=== PATIENT | male | born 1975 | race Caucasian/White ===

== ENCOUNTER 2023-06-13 14:15 | Day surgery (SDC) | payer MEDICARE, SELFPAY ==
[2023-06-13] VITALS (36 sets, daily range): BP systolic 113–188; BP diastolic 68–116; PULSE 62–85; TEMP 36.1–36.6; O2SAT 82–100; BMI 35.8
--- NOTE | 2023-06-13 | OP_ITS ---
OPERATION DATE: 06/13/2023 PREOPERATIVE DIAGNOSIS: Food impaction. POSTOPERATIVE DIAGNOSIS: Food impaction, as well as esophageal stricture. PROCEDURE: EGD with removal of mid esophageal food bolus. SURGEON: Kevin Dennison M.D. ANESTHESIA: General endotracheal. ESTIMATED BLOOD LOSS: Zero. INDICATIONS AND CONSENT: Patient is a 48-year-old male with history of asthma, has a long history of gastroesophageal reflux disease, as well as multiple food impactions in the past, who reports that he was eating steak this afternoon and it became lodged in his mid esophagus. He has been unable to eat or drink since that time. He does have a history of multiple episodes of this in the past. The last he reports was about five years ago. Patient had a workup in the emergency room, was unable to have any relief with glucagon or Ativan. Now presents for EGD. Indications, risks, benefits, alternatives of proceeding with EGD with general anesthesia, removal and/or reduction of the food bolus were explained extensively to the patient, including the risks of bleeding, aspiration, esophageal/gastric/duodenal perforation or anesthetic complications. All of his questions were answered. Informed consent was obtained. PROCEDURE: Patient brought to the operating room, placed in the supine position. General anesthesia was induced. He was then placed in the left lateral decubitus position. Bite block was placed in the patient?s mouth. Scope was inserted into the oropharynx. Under direct visualization, it was advanced into the mid esophagus, where the steak food bolus was noted. It was able to be grasped with a grasper and pulled out through the oropharynx in one piece. I then replaced the scope. There was noted be a stricture at this area that did not allow passage of the scope. However, the distal esophagus could be seen past this and was patent. There did appear to be inflammatory changes of the esophagus. No mass lesions. There was no evidence of bleeding. The scope was then withdrawn. Patient tolerated procedure well, was sent to recovery room in good condition. CC: Patient?s family physician ROGELIO
--- NOTE | 2023-06-13 | HP_ITS ---
Date: 06/13/2023 CHIEF COMPLAINT: Food impaction. HISTORY OF PRESENT ILLNESS: Patient is a 48-year-old male with history of asthma, who reports that he was eating steak this afternoon and had a piece lodged in his lower esophagus. He feels that it is stuck. He has been unable to swallow saliva or food or drink since that time. He has had this happen multiple times in the past, four or five times. The last was about five years ago. He presented to the emergency room, was given glucagon and Ativan with no relief of his symptoms. He does report some mild epigastric pain. No nausea or vomiting. He reports he did not eat much prior to the food being impacted. ALLERGIES: He reports allergies to aspirin. MEDICATION: Only medication is a Proventil inhaler which he takes p.r.n. Denies any nonsteroidal anti-inflammatory drug use or other blood thinners. SOCIAL HISTORY: Patient does smoke. Denies illicit drug use. Reports occasional alcohol use. PAST SURGICAL HISTORY: Only previous surgical operations have been previous EGDs for food boluses. FAMILY HISTORY: Noncontributory. REVIEW OF SYSTEMS: Ten system review of systems is negative for recent weight loss or weight gain. Denies increased fatigue or light-headedness. He has had no earache or tinnitus. No sinus congestion. No sore throat or hoarseness. No chest pain, palpitations or syncope. No chronic cough, shortness of breath or hemoptysis. He has had some mild epigastric pain. No nausea or vomiting. No bowel changes or blood in the stool. No dysuria, frequency, urgency or hematuria. No headaches, seizures or tremors. No easy bruising or bleeding. No heat or cold intolerance. No polydipsia, polyphagia or polyuria. PHYSICAL EXAM: VITAL SIGNS: Patient is afebrile. Blood pressure is 142/84. Pulse is 81 and regular. Respiratory rate is 18. O2 saturation is 97% on room air. GENERAL: In general, he is an obese male, in no acute distress. HEENT: Normocephalic, atraumatic. Sclerae anicteric. Oral mucosa is moist. He has multiple teeth missing. NECK: Supple. There is no adenopathy, thyromegaly or JVD. LUNGS: Clear bilaterally. No wheezes, rales or rhonchi. CARDIAC EXAM: Regular rhythm and rate without appreciable murmurs, rubs or gallops. ABDOMEN: Obese and soft, non-tender, non-distended. There are no masses, hepatosplenomegaly or hernias. No CVA tenderness. SKIN: Warm and dry without lesions, rashes or ulcers. NEURO EXAM: Non-focal. Non-lateralizing. Patient is awake, alert, oriented with appropriate affect. MUSCULOSKELETAL EXAM: There is normal muscle strength, mass and tone. ASSESSMENT: A 48-year-old male with food impaction. PLAN: To proceed with EGD under general anesthesia for possible reduction or removal of the food bolus. Indication, risks, benefits, alternatives of proceeding were explained extensively to the patient, including risks of bleeding, aspiration, esophageal/gastric/duodenal perforation or anesthetic complications. All of his questions were answered. Informed consent was obtained. CC: Patient?s family physician. GEOD
--- NOTE | 2023-06-13 14:23 | ED_ITS ---
HPI HPI - General Adult General Chief complaint: Skin/Abscess/Foreign Body Stated complaint: FOOD STUCK IN THROAT Time Seen by Provider: 06/13/23 14:20 Source: patient Mode of arrival: ambulance Limitations: no limitations History of Present Illness HPI narrative: 48-year-old male presents for inability to swallow. He has a history of esophageal food boluses in the last time he had to go to the hospital about it was about 5 years ago. Today, about an hour and a half ago, he was eating steak and a piece got stuck and it will not go down. He cannot swallow liquids now. Symptom has been continuous. Related Data Allergies Allergy/AdvReac Type Severity Reaction Status Date / Time aspirin Allergy Mild Verified 06/13/23 14:16 Opioid HPI Opioid Management Most Recent Opioid Data: Last ED Pain Assessment 06/13/23 15:39 Review of Systems ROS Narrative A ten point review of systems is negative except as noted above. Exam Narrative Exam Narrative: Nurses note and vital signs reviewed and patient is not hypoxic. General: The patient appears uncomfortable. He is spitting into an emesis basin Skin: Warm, dry, no pallor noted. There is no rash noted. Head: Normocephalic, atraumatic Eye: Normal conjunctiva, no drainage Ears, Nose, Mouth, and Throat: oral mucosa is moist. Nares patent. Cardiovascular: Regular Rate and Rhythm Respiratory: Patient is in no distress, no accessory muscle use, lungs are clear to auscultation, no wheezing, rales or rhonchi Back: non-tender GI: Soft and nontender Musculoskeletal: The patient has no evidence of calf tenderness, no pitting edema, symmetrical pulses noted bilaterally Neurological: A&O, normal speech Psychiatric: Cooperative Constitutional Vital Signs, click to edit/add: Last Vital Signs Temp 97.8 F 06/13/23 14:16 Pulse 81 06/13/23 15:57 Resp 16 06/13/23 15:57 BP 142/84 H 06/13/23 15:50 Pulse Ox 97 06/13/23 15:57 O2 Del Method Room Air 06/13/23 14:40 Course Vital Signs Vital signs: Vital Signs Temperature 97.8 F 06/13/23 14:16 Pulse Rate 85 06/13/23 14:16 Respiratory Rate 18 06/13/23 14:16 Blood Pressure 188/116 H 06/13/23 14:16 Pulse Oximetry 98 06/13/23 14:16 Temperature 97.8 F 06/13/23 14:16 Pulse Rate 81 06/13/23 15:57 Respiratory Rate 16 06/13/23 15:57 Blood Pressure 142/84 H 06/13/23 15:50 Pulse Oximetry 97 06/13/23 15:57 Oxygen Delivery Method Room Air 06/13/23 14:40 Medical Decision Making MDM Narrative Medical decision making narrative: The patient presents with esophageal food bolus. He was given multiple doses of medication without change in his status. I have spoken to Dr. Dennison and the patient will be taken to the OR for endoscopy. Findings were discussed with the patient Differential Diagnosis Differential Diagnosis: Esophageal stricture, food bolus Discharge Plan Discharge Chief Complaint: Skin/Abscess/Foreign Body Clinical Impression: Esophageal foreign body Patient Disposition: Admitted as Observation Time of Disposition Decision: 16:25 Condition: Good Print Language: Mozambican Referrals: Physician,Non-Staff, MD [Primary Care Provider] - 1 week
[2023-06-13] MEDS: METOCLOPRAMIDE HCL 10 MG/2 ML VIAL IVP ×2 (14:41→15:31)
[2023-06-13] MEDS: GLUCAGON 1 MG/ML VIAL IV ×2 (14:41→15:34)
[2023-06-13] MEDS: LORAZEPAM 2 MG/ML VIAL 1 MG IV (14:41)
[2023-06-13] MEDS: NITROGLYCERIN 0.4 MG BOTTLE 0.400000000000000022 MG SL ×2 (15:04→15:31)
[2023-06-13] MEDS: LACTATED RINGER'S SOLUTION 1,000 ML 50 ML IV (17:15)
--- NOTE | 2023-06-13 18:23 | PC.NURSE ---
Incontinent of large amount liquid stool
== END 2023-06-13 18:55 | disposition home or self-care (01) ==
LOC: ER 16:26 → SURGOUT 17:21
PROVIDERS: Emergency Provider Internal Medicine; Visit Provider Surgery
PROC: (CPT 43247; principal; 2023-06-13 17:10)
DX: T18.128A Food in esophagus causing other injury, initial encounter (principal); W44.F3XA Food entering into or through a natural orifice, initial encounter; J45.909 Unspecified asthma, uncomplicated; R10.13 Epigastric pain; F17.210 Nicotine dependence, cigarettes, uncomplicated; E66.9 Obesity, unspecified; K21.9 Gastro-esophageal reflux disease without esophagitis; Z68.35 Body mass index [BMI] 35.0-35.9, adult
CPT/HCPCS: 43247; 96374; 96375; 96376; 99285; J1610; J2704

== ENCOUNTER 2023-12-15 20:42 | Emergency (ER) | payer MEDICAID, MEDICARE, SELFPAY ==
[2023-12-15 20:46] VITALS: BP 170/98; PULSE 89; TEMP 36.9; O2SAT 98; BMI 32.5
--- OUTSIDE RECORDS SUMMARY | 2023-12-15 20:48 | XMS_ITS | CCD ---
Author Organization [facility] Care Team Providers Care Teacher Of The Hearing Impaired Name Role Phone REQUEST, DR NONE LISTED Primary Care Unavaila ble REINECK, DR SONIDO Rodriguez Admitting Unavailabl e REINECK, DR SONIDO Rodriguez Attending Unavailabl e REINECK, DR SONIDO Rodriguez Consulting Unavailabl e ZIEBER, DR LALITHA Richards Consulting Unavailable REQUEST, NONE LISTED Primary Care Unavaila ble PAY ., DR MITCHELL Admitting Unavailable PAY ., DR MITCHELL Attending Unavailable GRECHNY ., JUNAID JONES Consulting Unavailabl e AHDOOT, REGINA Consulting Unavailable NILLKevin Attending Unavailable [place], [facility]- Janiya E Emergency Provider NO FAMILY, PHYSICIAN Primary Care Provider Unava ilable NO FAMILY, PHYSICIAN Primary Care Unavailable Bull[place], Janiya E Admitting Unavailable [place], Janiya E Attending Unavailable Family [facility], Services Primary Care Unavaila ble Trav Yanez Admitting Unavailab le Trav Yanez Attending Unavailab le Allergies Allergy Classification Reported Allergen(s) Allergy Type Date of Onset Reaction(s) Facility (1 source) Aspirin Drug Allergy 03-24-2019 [facility] Repository (1 source) Aspirin Drug Allergy 07-11-2023 [facility] Repository Medications Current Medications Medication Drug Class(es) Dates Sig (Normalized) Sig (Original) ketorolac tromethamine 10 mg oral tablet (1 source) Nonsteroidal Anti-inflammatory Drug, Cyclooxygenase Inhibitor Start: 07-11-2023 take 10 mg by mouth every six hours Ketorolac Active 10 MG PO Q6H July 11, 2023 12:00am Completed/Discontinued Medications Medication Drug Class(es) Dates Sig (Normalized) Sig (Original) acetaminophen 325 mg / HYDROcodone bitartrate 5 mg oral tablet (2 sources) Opioid Agonist Start: 07-25-2017 End: 07-11-2023 take 1 tablet by mouth every four to six hours Hydrocodone-Acetami nophen ([place]) 5-325 mg Tablet Discontinued 1 TAB PO EVERY 4-6 HOURS July 25, 2017 July 11, 2023 12:43pm Start: 05-08-2017 End: 05-29-2017 take 1 tablet by mouth every four to six hours Hydrocodone-Acetaminophen ([place]) 5-325 mg tablet Discontinued 1 TAB PO EVERY 4-6 HOURS May 08, 2017 May 29, 2017 9:13am acetaminophen 325 mg / oxyCODONE hydrochloride 5 mg oral tablet (1 source) Opioid Agonist Start: 02-20-2017 End: 02-23-2017 take 1 tablet by mouth every four to six hours Oxycodone-Acetaminophen (Percocet) 5-325 mg tablet Discontinued 1 TAB PO EVERY 4-6 HOURS 18 February 20, 2017 February 23, 2017 1:04am albuterol 0.83 mg/ml inhalation solution (2 sources) beta2-Adrene rgic Agonist Start: 05-29-2017 End: 07-11-2023 take 2.5 mg by inhalation every four hours Albuterol Sulfate Discontinued 2.5 MG INHALATION Q4H May 29, 2017 12:00am July 11, 2023 12:43pm Start: 12-29-2016 End: 05-29-2017 Albuterol Sulfate Discontinu ed 2 INH INHALATION every 6 to 8 hours 8 December 29, 2016 1:00am May 29, 2017 9:13am administer with spacer azithromycin 250 mg oral tablet (1 source) Macrolide Antimicrobial Start: 05-29-2017 End: 07-25-2017 take 1 tablet by mouth once daily Azithromycin Discontinued 250 MG PO Daily May 29, 2017 12:00am July 25, 2017 6:17am Take one tab daily for 4 days ciprofloxacin 500 mg oral tablet (1 source) Quinolone Antimicrobial Start: 02-20-2017 End: 03-02-2017 take 1 tablet by mouth every two hours Ciprofloxacin Hcl (Cipro) 500 mg tablet Discontinued 500 MG PO Twice daily 27 11February 20, 2017 1:00am March 02, 2017 1:04am administer dose at least 2 hrs before/6 hrs after dairy products, calcium, zinc, and/or iron-containing products cyclobenzaprine hydrochloride 10 mg oral tablet (1 source) Muscle Relaxant Start: 05-08-2017 End: 07-25-2017 take 10 mg by mouth three times daily as needed Cyclobenzaprine Discontinued 10 MG PO .tid prn 10 May 08, 2017 12:00am July 25, 2017 6:17am docusate sodium 100 mg oral capsule (1 source) Start: 02-20-2017 End: 05-08-2017 take 1 capsule by mouth once daily Docusate Sodium (Colace) 100 mg capsule Discontinued 100 MG PO Daily February 20, 2017 1:00am May 08, 2017 1:53pm ibuprofen 800 mg oral tablet (1 source) Nonsteroidal Anti-inflammatory Drug Start: 05-08-2017 End: 05-29-2017 take 800 mg by mouth every six hours Ibuprofen Discontinued 800 MG PO Q6H May 08, 2017 12:00am May 29, 2017 9:13am metroNIDAZOLE 500 mg oral tablet (1 source) Nitroimidazole Antimicrobial Start: 02-20-2017 End: 03-02-2017 take 1 tablet by mouth every eight hours Metronidazole (Flagyl) 500 mg tablet Discontinued 500 MG PO Q8H 30 February 20, 2017 1:00am March 02, 2017 1:04am ondansetron 4 mg oral tablet (1 source) Serotonin-3 Receptor Antagonist Start: 02-20-2017 End: 02-25-2017 take 1 tablet by mouth every eight hours Ondansetron Hcl (Zofran) 4 mg tablet Discontinued 4 MG PO Q8H 22 06February 20, 2017 1:00am February 25, 2017 1:04am predniSONE 20 mg oral tablet (3 sources) Start: 05-29-2017 End: 07-25-2017 take 40 mg by mouth once daily at mealtime Prednisone Discontinued 40 MG PO Daily May 29, 2017 12:00am July 25, 2017 6:17am administer with food or milk Start: 05-08-2017 End: 05-29-2017 take 50 mg by mouth once daily at mealtime Prednisone Discontinued 50 MG PO Daily 5 May 08, 2017 12:00am May 29, 2017 9:13am administer with food or milk Start: 12-29-2016 End: 02-20-2017 take 60 mg by mouth once daily at mealtime Prednisone Discontinued 60 MG PO Daily December 29, 2016 1:00am February 20, 2017 1:18pm administer with food or milk raNITIdine 75 mg oral tablet (1 source) Histamine-2 Receptor Antagonist Start: 02-20-2017 End: 07-11-2023 take 1 tablet by mouth twice daily Ranitidine Hcl (Zantac 75) 75 mg Tablet Discontinued 75 MG PO Twice daily February 20, 2017 1:00am July 11, 2023 12:43pm Problems Active Problems Problem Classification Problem Date Documented Date Episodic/Chronic Chronic obstructive pulmonary disease and bronchiectasis (1 source) Bronchitis; Translations: [Bronchitis, not specified as acute or chronic] 05-29-2017 Episodic Diverticulosis and diverticulitis (2 sources) Diverticulitis of large intestine without perforation or abscess without bleeding; Translations: [Diverticulitis of intestine] Onset: 11-21-2021 02-20-2017 Chronic E Codes: Struck by; against (1 source) Other cause of strike by thrown, projected or falling object, initial encounter; Translations: [OTH CAUSE STRIK THRWN/FALL OBJ INIT] Onset: 04-28-2022 Episodic Other connective tissue disease (3 sources) Pain in left foot; Translations: [PAIN IN LEFT FOOT] Onset: 04-27-2022 Episodic Other injuries and conditions due to external causes (1 source) Unspecified injury of right lower leg, initial encounter; Translations: [Unspecified injury of right lower leg, initial encounter] Onset: 07-11-2023 Episodic Residual codes; unclassified (1 source) Tobacco use and exposure - finding; Translations: [Tobacco use] 05-29-2017 Episodic Spondylosis; intervertebral disc disorders; other back problems (1 source) Sciatica; Translations: [Sciatica, unspecified side] 05-08-2017 Episodic Substance-related disorders (1 source) Nicotine dependence, cigarettes, uncomplicated; Translations: [NICOTINE DEPEND CIGARETTES UNCOMP] Onset: 11-21-2021 Chronic Superficial injury; contusion (2 sources) Contusion of left foot, initial encounter; Translations: [Contusion of right knee] Onset: 04-28-2022 07-11-2023 Episodic Unclassified (1 source) CONTACT W/AND (SUSP) EXPOS COVID-19; Translations: [CONTACT W/AND (SUSP) EXPOS COVID-19] Onset: 11-21-2021 Past or Other Problems Problem Classification Problem Date Documented Da te Episodic/Chronic Abdominal pain (4 sources) Left lower quadrant pain; Translations: [Unspecified abdominal pain] Onset: 11-19-2021 Episodic Results Test Name Value Interpretation Reference Range Facil ity XR knee RT 4V*on 07-11-2023 XR knee RT 4V* [facility] [place] [address] [place] [id number] XRay Report Signed Patient: Lester Brown SR MR#: [id number] : 1975 Acct:[id number] Age/Sex: 48 / M ADM Date: 07/11/23 Loc: ER Room: Type: [facility] ER Attending Dr: Copies to: HUEY Watkins Ordering Provider: HUEY Watkins Date of Service: 07/11/23 XR/XR knee RT 4V*: Fall XR knee RT 4V* 07/11/2023 12:19 PM SIGNS AND SYMPTOMS: Fall onto right knee with abrasion and swelling anteriorly PROTOCOL: Frontal, lateral, and oblique radiographs of the right knee COMPARISON: 07/25/2017 FINDINGS: Heterotopic ossification is noted along the medial margin of the patella suspicious for previous patellar dislocation. These changes appear to be chronic in a relatively well-corticated and was present on the prior study. There is no evidence of acute displaced fracture. There is a moderate joint effusion. Fixation hardware is redemonstrated in the proximal tibia. XR/XR knee RT 4V* IMPRESSION: Chronic changes are noted in the patella suggesting previous patellar dislocation/fracture. This is similar to the prior exam. No evidence of acute displaced fracture. There is a moderate joint effusion. Impression dictated by: Michael Victoria M.D.07/11/2023 12:56 PM Dictation Location: [place] [address] Transcribed By: [facility] 07/11/23 1256 Dictated By: Michael Victoria II, MD 07/11/23 1248 Signed By: 07/11/23 1256 Normal [facility] Operative Reporton Operative Report [id number]. [id number] Normal [facility] CBC AUTO DIFFon 11-19-2021 BASO # 0.1 103/ul Normal 0.0-0.1 [facility] Comment on above: Performed By: #### C BC #### [facility] [address] [place] [address] Dr. Jackelin Cook Basophils/100 WBC (Bld) 0.5 % Normal 0.2-2.0 [facility] Comment on above: Performed By: #### C BC #### [facility] [address] [place] [address] Dr. Jackelin Cook EO # 0.2 103/ul Normal 0.0-0.7 [facility] Comment on above: Performed By: #### C BC #### [facility] [address] [place] [address] Dr. Jackelin Cook Eosinophils/100 WBC (Bld) 1.4 % Normal 0.9-7.0 [facility] Comment on above: Performed By: #### C BC #### [facility] [address] [place] [address] Dr. Jackelin Cook Erythrocyte distribution width (RBC) [Ratio] 13.4 % Normal 11.0-15.0 [facility] Comment on above: Performed By: #### C BC #### [facility] [address] [place] [address] Dr. Jackelin Cook Hematocrit (Bld) [Volume fraction] 46.8 % Normal 42.0-54.0 [facility] Comment on above: Performed By: #### C BC #### [facility] [address] [place] [address] Dr. Jackelin Cook Hemoglobin (Bld) [Mass/Vol] 15.3 g/dL Normal 14.0-18.0 [facility] Comment on above: Performed By: #### C BC #### [facility] [address] [place] [address] Dr. Jackelin Cook IG # 0.06 10e3/ul Critically high 0.00-0.03 [facility] Comment on above: Performed By: #### C BC #### [facility] [address] [place] [address] Dr. Jackelin Cook IG % 0.4 % Normal 0.0-0.5 [facility] Comment on above: Performed By: #### C BC #### [facility] [address] [place] [address] Dr. Jackelin Cook LYMPH # 2.5 103/ul Normal 1.2-3.8 [facility] Comment on above: Performed By: #### C BC #### [facility] [address] [place] [address] Dr. Jackelin Cook Lymphocytes/100 WBC (Bld) 15.8 % Critically low 20.5-60.0 [facility] Comment on above: Performed By: #### C BC #### [facility] [address] [place] [address] Dr. Jackelin Cook MANUAL DIFF REQ NO Normal [facility] Comment on above: Performed By: #### C BC #### [facility] [address] [place] [address] Dr. Jackelin Cook MCH (RBC) [Entitic mass] 30.2 pg Normal 25.9-34.0 [facility] Comment on above: Performed By: #### C BC #### [facility] [address] [place] [address] Dr. Jackelin Cook MCHC (RBC) [Mass/Vol] 32.7 g/dL Normal 29.9-35.2 [facility] Comment on above: Performed By: #### C BC #### [facility] [address] [place] [address] Dr. Jackelin Cook MCV (RBC) [Entitic vol] 92.3 fL Normal 80.0-94.0 [facility] Comment on above: Performed By: #### C BC #### [facility] [address] [place] [address] Dr. Jackelin Cook MONO # 1.0 103/ul Critically high 0.3-0.8 [facility] Comment on above: Performed By: #### C BC #### [facility] [address] [place] [address] Dr. Jackelin Cook Monocytes/100 WBC (Bld) 6.5 % Normal 1.7-12.0 [facility] Comment on above: Performed By: #### C BC #### [facility] [address] [place] [address] Dr. Jackelin Cook NEUT # 11.7 103/ul Critically high 1.4-6.5 [facility] Comment on above: Performed By: #### C BC #### [facility] [address] [place] [address] Dr. Jackelin Cook Neutrophils/100 WBC (Bld) 75.4 % Critically high 43.0-75.0 [facility] Comment on above: Performed By: #### C BC #### [facility] [address] [place] [address] Dr. Jackelin Cook Platelet mean volume (Bld) [Entitic vol] 9.1 fL Critically low 9.5-13.5 [facility] Comment on above: Performed By: #### C BC #### [facility] [address] [place] [address] Dr. Jackelin Cook PLT 342 103/ul Normal 150-450 [facility] Comment on above: Performed By: #### C BC #### [facility] [address] [place] [address] Dr. Jackelin Cook RBC 5.07 106/ul Normal 4.70-6.10 [facility] Comment on above: Performed By: #### C BC #### [facility] [address] [place] [address] Dr. Jackelin Cook WBC 15.5 103/ul Critically high 4.0-11.0 [facility] Comment on above: Performed By: #### C BC #### [facility] [address] [place] [address] ABD/PELV W CONon 11-20-19 CT ABD/PELV W CON TECHNIQUE: CT abdome n and pelvis. Helically acquired axial images of the abdomen and pelvis from the diaphragm to the iliac crest and the iliac crest to the symphysis pubis. Sagittal and coronal multiplanar reconstructions. . HISTORY: Abdominal pain COMPARISON: No comparison FINDINGS: The lung bases appear clear. The heart size is normal. Approximately 2 cm gallstone is seen in a distended gallbladder. No significant gallbladder wall thickening is seen by CT imaging. The common bile duct measures up to 1 cm in diameter proximally. No significant intrahepatic biliary dilatation is seen. The liver, spleen, pancreas and bilateral adrenal glands appear unremarkable. Bilateral kidneys have an unremarkable appearance with renal size, morphology and contrast enhancement. There is no evidence for hydronephrosis bilaterally. The urinary bladder appears unremarkable. The stomach and duodenum appear unremarkable. Nonobstructive bowel pattern is seen. Normal-appearing appendix is visualized. No abnormal pericecal inflammatory changes are seen. No diverticula are likely seen. Amorphous and diffuse enhancing and wall thickened appearance of the sigmoid colon is seen with surrounding mesenteric fat stranding and tiny adjacent free fluid, which may represent sigmoid diverticulitis/coliti s. However, underlying malignancy cannot be excluded. Clinical correlation and follow-up with direct visualization and/or imaging may be considered. No abnormal fluid collection is seen in the abdomen and pelvis. There is no evidence for pneumoperitoneum. The vascular structures demonstrate normal caliber and contrast enhancement. Partially visualized moderate sized fat-containing bilateral inguinal hernia is seen. Degenerative changes are seen at L5-S1 level with mild anterolisthesis of L5 vertebral body relative to S1, as well as mild loss of intervertebral disc height and endplate sclerosis. IMPRESSION: Amorphous and diffuse enhancing and wall thickened appearance of the sigmoid colon is seen with surrounding mesenteric fat stranding and tiny adjacent free fluid, which may represent sigmoid diverticulitis/coliti s. However, underlying malignancy cannot be excluded. Clinical correlation and follow-up with direct visualization and/or imaging may be considered. Approximately 2 cm gallstone is seen in a distended gallbladder. No significant gallbladder wall thickening is seen by CT imaging. The common bile duct measures up to 1 cm in diameter proximally. No significant intrahepatic biliary dilatation is seen. If clinically indicated, sonographic evaluation of the gallbladder may be obtained. Electronically authenticated by: REGINA CANNON Date: 2021-11-19 20:06 Normal [facility] Covid-19 PCR (CVDTB)on 11-08 SARS-CoV-2 (COVID-19) RNA PHUONG+probe Ql (Unsp spec) Not detected Normal NOT DETECTED [facility] Comment on above: Result Comment: When diagnostic testing is negative, the possibility of a false negative should be considered in the context of a patient's recent exposures and the presence of clinical signs and symptoms consistent with SARS-CoV-2. This test is not yet approved or cleared by the [place] FDA. When there are no FDA-approved or cleared tests available, and other criteria are met, FDA can make tests available under an emergency access mechanism called an Emergency Use Authorization (EUA). The EUA for this test is supported by the [place] of Health and Human Service's declaration that circumstances exist to justify the emergency use of in vitro diagnostics for the detection and/or diagnosis of the virus that causes COVID-19. This EUA will remain in effect for the duration of the COVID-19 declaration justifying emergency of IVDs, unless it is terminated or revoked by the FDA (after which the test may no longer be used). Performed By: #### C VDTBH #### [facility] [address] [place] [address] Dr. Jackelin Cook LACTATE/LACTIC ACIDon 2021 Lactate [Moles/Vol] 0.7 mmol/L Normal 0.4-1.9 [facility] Comment on above: Performed By: #### L ACT #### [facility] [address] [place] [address] Dr. Jackelin Cook LIPASEon 11-19-2021 Lipase [Catalytic activity/Vol] 77.0 U/L Normal 73.0-393.0 [facility] Comment on above: Performed By: #### C MP, LIPA #### [facility] [address] [place] [address] Dr. Jackelin Cook PROF 14(COMP METB)on 022 Albumin [Mass/Vol] 3.3 g/dL Critically low 3.4-5.0 [facility] Comment on above: Performed By: #### C MP, LIPA #### [facility] [address] [place] [address] Dr. Jackelin Cook Albumin/Globulin [Mass ratio] 0.8 {ratio} Normal [facility] Comment on above: Performed By: #### C MP, LIPA #### [facility] [address] [place] [address] Dr. Jackelin Cook ALP [Catalytic activity/Vol] 134 U/L Critically high 46-116 [facility] Comment on above: Performed By: #### C MP, LIPA #### [facility] [address] [place] [address] [address] Jackelin Cook ALT [Catalytic activity/Vol] 29 U/L Normal 16-63 [facility] Comment on above: Performed By: #### C MP, LIPA #### [facility] [address] [place] [address] [address] Jackelin Cook Anion gap [Moles/Vol] 12.2 mmol/L Normal [facility] Comment on above: Performed By: #### C MP, LIPA #### [facility] [address] [place] [address] Dr. Jackelin Cook AST [Catalytic activity/Vol] 14 U/L Critically low 15-37 [facility] Comment on above: Performed By: #### C MP, LIPA #### [facility] [address] [place] [address] Dr. Jackelin Cook Bilirubin [Mass/Vol] 0.3 mg/dL Normal 0.2-1.0 [facility] Comment on above: Performed By: #### C GISELE, LIPA #### [facility] [address] [place] [address] Dr. Jackelin Cook Calcium [Mass/Vol] 8.8 mg/dL Normal 8.5-10.1 [facility] Comment on above: Performed By: #### C MP, LIPA #### [facility] [address] [place] [address] Dr. Jackelin Cook Chloride [Moles/Vol] 104 mmol/L Normal 98-107 [facility] Comment on above: Performed By: #### C MP, LIPA #### [facility] [address] [place] [address] Dr. Jackelin Cook CO2 [Moles/Vol] 25.9 mmol/L Normal 21.0-32.0 [facility] Comment on above: Performed By: #### C MP, LIPA #### [facility] [address] [place], [place] [id number] Dr. Jackelin Cook Creatinine [Mass/Vol] 0.96 mg/dL Normal 0.70-1.30 [facility] Comment on above: Performed By: #### C MP, LIPA #### [facility] [address] [place] [address] Dr. Jackelin Cook EGFR-AF ANGUILLAN >60 Normal >=60 [facility] Comment on above: Performed By: #### C MP, LIPA #### [facility] [address] [place] [address] [address] Jackelin Cook EGFR-NON AF ANGUILLAN >60 Normal >=60 [facility] Comment on above: Performed By: #### C MP, LIPA #### [facility] [address] [place] [address] Dr. Jackelin Cook Globulin (S) [Mass/Vol] 4.2 g/dL Normal [facility] Comment on above: Performed By: #### C MP, LIPA #### [facility] [address] [place] [address] Dr. Jackelin Cook Glucose [Mass/Vol] 109 mg/dL Critically high 74-106 [facility] Comment on above: Performed By: #### C MP, LIPA #### [facility] [address] [place] [address] Dr. Jackelin Cook Potassium [Moles/Vol] 4.1 mmol/L Normal 3.5-5.1 [facility] Comment on above: Performed By: #### C MP, LIPA #### [facility] [address] [place] [address] Dr. Jackelin Cook Protein [Mass/Vol] 7.5 g/dL Normal 6.4-8.2 [facility] Comment on above: Performed By: #### C MP, LIPA #### [facility] [address] [place] [address] Dr. Jackelin Cook Sodium [Moles/Vol] 138 mmol/L Normal 136-145 [facility] Comment on above: Performed By: #### C MP, LIPA #### [facility] [address] [place] [address] Dr. Jackelin Cook Urea nitrogen [Mass/Vol] 14.0 mg/dL Normal 7.0-18.0 [facility] Comment on above: Performed By: #### C MP, LIPA #### [facility] [address] [place] [address] Dr. Jackelin Cook Urea nitrogen/Creatinin e [Mass ratio] 14.6 mg/mg Normal [facility] Comment on above: Performed By: #### C MP, LIPA #### [facility] [address] [place] [address] Dr. Jackelin Cook PROTIMEon 11-19-2021 INR Coag (PPP) [Relative time] 1.02 {INR} Normal [facility] Comment on above: Performed By: #### P TT, PT #### [facility] [address] [place] [address] Dr. Jackelin Cook INR GUIDELINES SEE BELOW Normal [facility] Comment on above: Result Comment: JÚNIOR RED INR: 2.0 - 3.0 CONDITIONS NOT LISTED BELOW 2.5 - 3.5 FOR PROSTHETIC HEART VALVE REPLACEMENT 2.5 - 3.5 RECURRENT THROMBOSIS Performed By: #### P TT, PT #### [facility] [address] [place] [address] Dr. Jackelin Cook PT Coag (PPP) [Time] 11.0 s Normal 9.0-11.6 [facility] Comment on above: Performed By: #### P TT, PT #### [facility] [address] [place] [address] Dr. Jackelin Cook PTTon 11-19-2021 aPTT Coag (Bld) [Time] 29.6 s Normal 22.3-36.2 [facility] Comment on above: Performed By: #### P TT, PT #### [facility] [address] [place] [address] Dr. Jackelin Cook Vital Signs Date Time Vital Sign Value Performing Clinician El hussein 07-11-2023 11:59-0400 Body height 175.26 cm ON CALL PHARMACY TECHNICIAN- Janiya Correa Work Phone: [facility] 07-11-2023 11:59-0400 Body temperature 98.4 [degF] ON CALL PHARMACY TECHNICIAN-BC Janiya Bullimore Work Phone: [facility] 07-11-2023 11:59-0400 Body weight 109.9 kg ON CALL PHARMACY TECHNICIAN-BC Janiya Bullimore Work Phone: [facility] 07-11-2023 11:59-0400 Diastolic blood pressure 99 mm[Hg] ON CALL PHARMACY TECHNICIAN-BC Janiya Bullimore Work Phone: [facility] 07-11-2023 11:59-0400 Heart rate 81 /min ON CALL PHARMACY TECHNICIAN-BC Janiya Bullimore Work Phone: [facility] 07-11-2023 11:59-0400 Respiratory rate 18 /min ON CALL PHARMACY TECHNICIAN-BC Janiya Bullimore Work Phone: [facility] 07-11-2023 11:59-0400 SaO2% (BldA) [Mass fraction] 98 % ON CALL PHARMACY TECHNICIAN-BC Janiya Bullimore Work Phone: [facility] 07-11-2023 11:59-0400 Systolic blood pressure 152 mm[Hg] ON CALL PHARMACY TECHNICIAN-BC Janiya Bullimore Work Phone: [facility] Encounters Encounter Date Encounter Type Care Provider Facility Start: 07-11-2023 End: 07-11-2023 Emergency department patient visit ON CALL PHARMACY TECHNICIAN-BC Janiya Bullimore Work Phone: [facility] Work Phone: Start: 06-14-2023 ambulatory Kevin ZAMARRIPA Facility:[facility] Start: 06-13-2023 End: 06-14-2023 ambulatory Kevin ZAMARRIPA Facility:CD:[id number] Start: 12-10-2022 ambulatory Services [facility] Facility:[facility] Start: 04-27-2022 End: 04-27-2022 ambulatory NONE LISTED REQUEST Facility: Start: 11-19-2021 End: 11-19-[address] NONE LISTED REQUEST Facility:[facility]1 Procedures Date Procedure Procedure Detail Performing Clinician Start: 07-11-2023 X-ray of right knee ON CALL PHARMACY TECHNICIAN -BC Janiyaines Watsonimore Work Phone: Plan of Treatment Date Care Activity Detail Author Patient Education Contusion (DC) [facility] Work Phone: Patient referral [facility] Work Phone: Payers Date Payer Category Payer Medicare [id number] 2023 Unknown [id number] 2011 Unknown [id number] 1975 Unknown [id number] 2.16.84 [id number] 1975 Unknown [id number] 2.16.84 [id number] 1975 Unknown [id number] 2.16.8 [id number] 1975 Unknown [id number] 2.16.8 [id number] 1959 Self-pay Medicaid Medicaid [id number] 18 [id number] Unknown [id number] 2.16.8 [id number] Unknown [id number] 2.16.8 [id number] Social History Date Type Detail Facility Start: 07-11-2023 Tobacco smoking stat us NHIS Smoker (finding) [facility] Start: 1975 Sex Assigned At Male F [facility] History and physical note 06-16-2023 Note Date & Type Note Facility 06-16-2023 Note [id number] #[id number] [facility] Clinical Note 04-27-2022 Note Date & Type Note Facility 04-27-2022 Note PROCEDURE: XR FOOT L T MIN 3 VIEWS HISTORY: Bone injury ; acute left foot pain after dropping object on foot COMPARISON: None. FINDINGS: BONES:No fracture, acute abnormality, or significant arthropathy. SOFT TISSUES:Soft tissue swelling over distal dorsum of foot. No radiopaque foreign body. EFFUSION:None visible. OTHER: Negative. IMPRESSION: 1. No acute bone abnormality. 2. Mild dorsal soft tissue swelling. Electronically authenticated by: LALITHA CARMONA Date: 2022-04-27 08:24 [facility] Evaluation note Note Date & Type Note Facility Evaluation note No assessment information availa ble [facility] Work Phone: Hospital Discharge instructions Note Date & Type Note Facility Hospital Discharge instructions Additional Instructions Rest ice elevate Apply antibiotic ointment a bandage to the abrasion until healed Wear the Tamir wrap as needed for comfort Take the ketorolac every 6 hours for pain take with food Follow-up with [place] especially if not getting better Return to the ER for worsening pain swelling redness warmth fever chills or any other concerns [facility] Work Phone: Summary Purpose Family History No Family History Records FoundNo Family History Records FoundNo Family History Records Found Advance Directives No Advanced Directives Records Found Advance Directive Response Recorded Date/ Time Advance Directives No December 6:22pm Chief Complaint and Reason for Visit Chief Complaint fall ico @ quality i nn Additional Source Comments (unrecognized sect ion and content) No Status Records FoundNo Status Records FoundNo Status Records Found INFORMATION SOURCE (unrecogn ized section and content) DATE CREATED AUTHOR 05/02/2022 [facility] DATE CREATED AUTHOR AUTHOR'S ORGANIZ ATION 06/22/2023 [facility] DATE CREATED AUTHOR AUTHOR'S ORGANIZ ATION 07/21/2023 [facility] Care Teams (unrecognized sec tion and content) Team Status: Active Member Role Status Dates Larissa Ko DO Family Provider Active PHYSICIAN NO FAMILY Primary Care Provider Active Team Status: Inactive Member Role Status Dates ZIYAD WatkinsP- Emergency Provider Active Start: July 11, 2023 End: July 11, 2023 PHYSICIAN NO FAMILY Primary Care Provider Active Start: July 11, 2023 End: July 11, 2023 Goals (unrecognized section and content) Goals may be documented in a n alternate section FOR RECORDS PERTAINING TO PATIENTS WHO ARE OR HAVE BEEN ENROLLED IN A CHEMICAL DEPENDENCY/SUBSTANCEABUSE PROGRAM, SOME INFORMATION MAY BE OMITTED. This clinical summary was aggregated from multiple sources. Caution should be exercised in using it in the provision of clinical care. This summary normalizes information from multiple sources, and as a consequence, information in this document may materially change the coding, format and clinical context of patient data. In addition, data may be omitted in some cases. CLINICAL DECISIONS SHOULD BE BASED ON THE PRIMARY CLINICAL RECORDS. [facility] provides no warranty or guarantee of the accuracy or completeness of information in this document.
--- NOTE | 2023-12-15 21:00 | ED.GENADUL1 ---
HPI HPI - General Adult General Chief complaint: Skin/Abscess/Foreign Body Stated complaint: Food in throat Time Seen by Provider: 12/15/23 20:51 Source: patient Mode of arrival: walk-in Limitations: no limitations History of Present Illness HPI narrative: Patient presenting to the emergency department for evaluation of esophageal food bolus. Patient states that he has a history of esophageal strictures, has had to have dilations. Patient states he was eating chicken, felt some grossly getting stuck in his throat. He swallowed it further, and he states that he felt to go almost all the way down he can feel that is stuck right above where the stomach and the esophagus meets. Patient states that he tried to eat some bread and it would not go down and came back up. He can feel that it is just sitting there stuck. Does not have any difficulty breathing, swallowing. Not having drooling. No other complaints at this time Related Data Allergies Allergy/AdvReac Type Severity Reaction Status Date / Time aspirin Allergy Mild asthma Verified 12/15/23 20:50 Opioid HPI Opioid Management Most Recent Opioid Data: No Data to Display Review of Systems ROS Narrative Negative unless otherwise stated in the HPI PFSH PFSH Social History Little interest or pleasure in doing things: not at all Feeling down, depressed, or hopeless: not at all Exam Narrative Exam Narrative: General: NAD, AAOx3, no distress HEENT: No fluid bolus was noted worsening, no drooling or trismus, no tripoding Abdomen: Soft, ND/NT. No evidence of fluid wave. No pulsatile masses on exam, rebound tenderness, Hidalgo sign or pain over Mcburney's point. Constitutional Vital Signs, click to edit/add: Last Vital Signs Temp 98.4 F 12/15/23 20:46 Pulse 89 12/15/23 20:46 Resp 18 12/15/23 20:46 BP 170/98 H 12/15/23 20:46 Pulse Ox 98 12/15/23 20:46 O2 Del Method Room Air 12/15/23 20:46 Course Vital Signs Vital signs: Vital Signs Temperature 98.4 F 12/15/23 20:46 Pulse Rate 89 12/15/23 20:46 Respiratory Rate 18 12/15/23 20:46 Blood Pressure 170/98 H 12/15/23 20:46 Pulse Oximetry 98 12/15/23 20:46 Oxygen Delivery Method Room Air 12/15/23 20:46 Temperature 98.4 F 12/15/23 20:46 Pulse Rate 89 12/15/23 20:46 Respiratory Rate 18 12/15/23 20:46 Blood Pressure 170/98 H 12/15/23 20:46 Pulse Oximetry 98 12/15/23 20:46 Oxygen Delivery Method Room Air 12/15/23 20:46 Medical Decision Making MDM Narrative Medical decision making narrative: MDM Patient with history as above presented with food bolus. History obtained from patient. Patient was nontoxic, stable. Ambulatory. Exam as above. Reviewed external records. Differential diagnosis considered. Overall presentation is consistent with food bolus 4 patient states that he can still feel it after effervescent drinks and rocking on his heels. Was able to tolerate liquids, is still burping and able to swallow, no drooling or trismus. Attempted #2 2144 patient states that it did not help, he still feels nauseated and that it is stuck. With the glucagon ordered 2237 patient was reevaluated, symptoms are still present. I did recommend observation overnight, will consult GI or general surgery for scope. Patient states that he has 2 kids at home, 16 and 12 there by themselves. He states that he cannot stay overnight he has to go home. He has been ready for school. 2242 I discussed with on-call general surgery Dr. Thakur. She states that she is scoping all day tomorrow at [facility], she would be able to add him on as an add-on case. If patient cannot stay tonight, or be transferred over there, after he takes his kids to school in the morning he should show up at the emergency department and notify them that she recommended he come over in the morning to be scoped, she can do him as an add-on case through the emergency department given the patient is tolerating liquids and has no airway compromise, it would be appropriate for him to follow-up tomorrow. Advanced guidance has been given. Vss, pex is benign at this time. Pt to fu with pcp 1-2 days for reeval, rter should sx worsen, persist or become worrysome in any way. All incidental laboratory studies, EKG, radiologic findings have been noted and discussed with patient. Patient was reevaluated with a benign exam at this time. Pt expressed understanding and agreement with plan of care at this time. Will fu as planned. Pt stable for discharge. Medical Records Medical records reviewed: Yes I reviewed the patient's medical records Lab Data Lab results reviewed: Yes I reviewed the patient's lab results Discharge Plan Discharge Chief Complaint: Skin/Abscess/Foreign Body Clinical Impression: Esophageal foreign body Patient Disposition: Home, Self-Care Time of Disposition Decision: 22:46 Print Language: Turkmen Instructions: Esophageal Foreign Body (ED) Additional Instructions: Follow-up tomorrow with Dr. Thakur, GI, as discussed Referrals: Physician,Non-Staff, MD [Primary Care Provider] - 1 week
[2023-12-15] MEDS: ONDANSETRON PF 4 MG/2 ML VIAL IV (21:57)
[2023-12-15] MEDS: GLUCAGON 1 MG/ML VIAL IV (21:58)
== END 2023-12-15 23:01 | disposition home or self-care (01) ==
PROVIDERS: Emergency Provider Emergency Medicine
DX: T18.128A Food in esophagus causing other injury, initial encounter (principal); W44.F3XA Food entering into or through a natural orifice, initial encounter
CPT/HCPCS: 96374; 96375; 99284; J1610; J2405

== ENCOUNTER 2024-10-16 10:19 | Emergency (ER) | payer MEDICARE, MEDICAID, SELFPAY ==
--- OUTSIDE RECORDS SUMMARY | 2016-09-11 12:45 | XMS_ITS | Continuity of Care Document ---
Author Organization 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 Head Check (chief complaint) No Information Clemente Bower. [address], [place], [id number], [place]. tel:[phone] Family History Family Member Type Diagnosis Age At Onset No Information Payers Payer name Insurance type Covered republican ID Authoriza tion(s) Medicare PPS MB [id number] Medicaid Crossover [id number] Social History Type Description Quantity Date Captured Comments Sex Male Smoking Status No Information Sexual Orientation Straight or heterosexual June Gender Identity Male Chief Complaint And Reason For Visit From encounter dated '09/11/2016 16:45'. Head Check (chief complaint). Description: Presents with children for head check. Live louse visualized in hair. Rx for Nix given. -- Devon Alexis, R.N. Reason For Referral Reason For Referral No Information History Of Present Illness Encounter Date Complaint History Of Prese nt Illness Head Check Presents with ildren for head check. Live louse visualized in hair. Rx for Nix given. -- Devon Alexis, R.N. Functional Status Date Functional Assessmen t No Information Instructions Date Instruction Additional Infor mation No Information Assessments Type Assessment Date No Information Patient Care Teams Name Effective Dates (start - stop) Status Members No Information
[2024-10-16 10:27] VITALS: BP 176/114; PULSE 71; TEMP 36.6; O2SAT 99; BMI 35.1
--- OUTSIDE RECORDS SUMMARY | 2024-10-16 10:31 | XMS_ITS | Clinical Summary ---
Author Organization [employer] tem Address [id number] [address] 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 Name Role Phone No Pcp, No Pcp Primary Care Provider Unavailabl e Allergies Active Allergy Reactions Criticality Noted Date Comments Lsn-[id number]-Eohg-Buffers 02/28 Medications No known medications Social History Tobacco Use Types Packs/Day Years Used Date Smoking Tobacco: Every Day Cigarettes 0.3 30 Cigars Smokeless Tobacco: Never Tobacco Cessation:Ready to Q uit: No Comments:black and milds Alcohol Use Standard Drinks/Week Comments Not Currently 0 (1 standard drink = 0.6 oz pur e alcohol) sober for 12 months AUDIT-C Answer Date Recorded Frequency of Alcohol Consumption Never 02/28/2019 Average Number of Drinks Not on file 020 Frequency of Binge Drinking Not on file 02/09 Childcare Answer Date Recorded Childcare Unknown 02/28/2019 Employment Answer Date Recorded Employment Unknown 02/28/2019 Purpose - Life Answer Date Recorded Purpose and direction in life Unknown Sex and Gender Information Value Date Recorded Sex Assigned at Not on file Legal Sex Male 7:14 PM EST Gender Identity Not on file Sexual Orientation Not on file Last Filed Vital Signs Vital Sign Reading Time Taken Comments Blood Pressure 159/104 02/28/2019 7:17 PM EST Pulse 78 02/28/2019 7:17 PM EST Temperature 36.8 C (98.3 F) 02/28/2019 7:17 PM EST Respiratory Rate 16 02/28/2019 7:17 PM EST Oxygen Saturation 100% 02/28/2019 7:17 PM EST Inhaled Oxygen Concentration - - Weight 97.5 kg (215 lb) 02/28/2019 7:17 PM EST Height 175.3 cm (5' 9 ) 02/28/2019 7:17 PM EST Body Mass Index 31.75 02/28/2019 7:17 PM EST Plan of Treatment Health Maintenance Due Date Last Done Comments Depression Screening 1987 Tobacco Screening 1987 Adult BMI Screening 1993 DTaP,Tdap and Td Vaccines (1 - Tdap) 1994 Influenza Vaccine 10/09/2024 Medical Devices Not on file Care Teams Manufacturing Maintenance Mechanic Relationship Specialty Start Date End Date No Pcp, No Pcp TREV Valdes [id number] PCP - General Family Medicine 02/28/19
[2024-10-16 10:35] VITALS: BP 158/90
--- OUTSIDE RECORDS SUMMARY | 2024-10-16 10:37 | XMS_ITS | CCD ---
Author Organization [facility] ion 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 Role Phone REQUEST, DR NONE LISTED Primary Care Unavaila ble REINECK, DR SONIDO Rodriguez Admitting Unavailabl e REINECK, DR SONIDO Rodriguez Attending Unavailabl e REINECK, DR SONIDO Rodriguez Consulting Unavailabl e ZIEBUSHA, DR LALITHA Richards Consulting Unavailable REQUEST, DR NOLAND LISTED Primary Care Unavaila ble PAY ., DR MITCHELL Admitting Unavailable PAY ., DR MITCHELL Attending Unavailable GRECHNY ., PA ROBERT Consulting Unavailabl e AHDOOT, REGINA Consulting Unavailable NILLKevin Attending Unavailable Bullimore, [facility] Janiya E Emergency Provider [phone] NO FAMILY, PHYSICIAN Primary Care Provider Unava ilable NO FAMILY, PHYSICIAN Primary Care Unavailable Bullimore, Janiya E Attending Unavailable Bullimore, Janiya E Admitting Unavailable NO FAMILY, PHYSICIAN Primary Care Unavailable Ly, Idania L Attending Unavailable Ly, Idania L Admitting Unavailable Ly, Idania L Admitting Unavailable NO FAMILY, PHYSICIAN Primary Care Unavailable Ly, Idania L Attending Unavailable Allergies Allergy Classification Reported Allergen(s) Allergy Type Date of Onset Reaction(s) Facility (1 source) Aspirin Drug Allergy 03-24-2019 [facility] Repository (1 source) Aspirin Drug Allergy 12-16-2023 [facility] Repository Medications Current Medications Medication Drug Class(es) [...] every four to six hours Hydrocodone-Acetami nophen (Cumby) 5-325 mg Tablet Discontinued 1 TAB PO EVERY 4-6 HOURS July 25, 2017 July 11, 2023 12:43pm Start: 05-08-2017 End: 05-29-2017 take 1 tablet by mouth every four to six hours Hydrocodone-Acetaminophen (Cumby) 5-325 mg tablet Discontinued 1 TAB PO EVERY 4-6 HOURS May 08, 2017 May 29, 2017 9:13am acetaminophen 325 mg / oxyCODONE hydrochloride 5 mg oral tablet (1 source) Opioid Agonist Start: 02-20-2017 End: 02-23-2017 take 1 tablet by mouth every four to six hours Oxycodone-Acetaminophen (Percocet) 5-325 mg tablet Discontinued 1 TAB PO EVERY 4-6 HOURS 25 04February 20, 2017 February 23, 2017 1:04am albuterol [...] daily Azithromycin Discontinued 250 MG PO Daily 4 May 29, 2017 12:00am July 25, 2017 [...] mg tablet Discontinued 4 MG PO Q8H 15 February 20, 2017 1:00am February 25, 2017 1:04am [...] conditions due to external causes (1 source) Food in esophagus causing other injury, initial encounter; Translations: [Food in esophagus causing other injury, initial encounter] Onset: 12-16-2023 Episodic Residual codes; unclassified (1 source) Tobacco [...] Translations: [Unspecified abdominal pain] Onset: 11-19-2021 Episodic Other injuries and conditions due to external causes (1 source) Unspecified injury of right lower leg, initial encounter; Translations: [Unspecified injury of right lower leg, initial encounter] Onset: 07-11-2023 Episodic Results Test Name Value Interpretation Reference Range Facil ity XR knee RT 4V*on 07-11-2023 XR knee RT 4V* [facility] [place] [address] [place] [address] XRay Report Signed Patient: Lester Brown SR MR#: [id number] : 1975 Acct:[id number] Age/Sex: 48 / M ADM Date: 07/11/23 Loc: ER Room: Type: [facility] ER Attending Dr: Copies to: HUEY Watkins [...] Michael Victoria M.D.07/11/2023 12:56 PM Dictation Location: [place] [address] Transcribed By: [facility] 07/11/23 1256 Dictated By: Michael Victoria II, MD 07/11/23 1248 Signed By: 07/11/23 1256 Normal [facility] Operative Reporton Operative Report [id number]. 00TIFF Normal [facility] CBC AUTO DIFFon 11-19-2021 BASO # 0.1 103/ul Normal 0.0-0.1 [facility] Comment on above: Performed By: #### C BC #### [facility] [address] [place] [address] [address] Jackelin Cook Basophils/100 WBC (Bld) 0.5 % Normal 0.2-2.0 [facility] Comment on above: Performed By: #### C BC #### [facility] [address] [address] [address] Jackelin Cook EO # 0.2 103/ul Normal 0.0-0.7 [facility] Comment on above: Performed By: #### C BC #### [facility] [address] [address] [address] Jackelin Cook Eosinophils/100 WBC (Bld) 1.4 % Normal 0.9-7.0 [facility] Comment on above: Performed By: #### C BC #### [facility] [address] [address] [address] Jackelin Cook Erythrocyte distribution width (RBC) [Ratio] 13.4 % Normal 11.0-15.0 [facility] Comment on above: Performed By: #### C BC #### [facility] [address] [place] [address] Dr. Jackelin Cook Hematocrit (Bld) [Volume fraction] 46.8 % Normal 42.0-54.0 [facility] Comment on above: Performed By: #### C BC #### [facility] [address] [place] [address] Dr. Jackelin Cook Hemoglobin (Bld) [Mass/Vol] 15.3 g/dL Normal 14.0-18.0 [facility] Comment on above: Performed By: #### C BC #### [facility] [address] [place] [address] Dr. Jackelin Cook IG # 0.06 10e3/ul Critically high 0.00-0.03 [facility] Comment on above: Performed By: #### C BC #### [facility] [address] [place] [address] Dr. Jackelin Cook IG % 0.4 % Normal 0.0-0.5 [facility] Comment on above: Performed By: #### C BC #### [facility] [address] [place] [address] Dr. Jackelin Cook LYMPH # 2.5 103/ul Normal 1.2-3.8 [facility] Comment on above: Performed By: #### C BC #### [facility] [address] [place] [address] Dr. Jackelin Cook Lymphocytes/100 WBC (Bld) 15.8 % Critically low 20.5-60.0 [facility] Comment on above: Performed By: #### C BC #### [facility] [address] [place] [address] Dr. Jackelin Cook MANUAL DIFF REQ NO Normal [facility] Comment on above: Performed By: #### C BC #### [facility] [address] [place] [address] Dr. Jackelin Cook MCH (RBC) [Entitic mass] 30.2 pg Normal 25.9-34.0 [facility] Comment on above: Performed By: #### C BC #### [facility] [address] [place] [address] Dr. Jackelin Cook MCHC (RBC) [Mass/Vol] 32.7 g/dL Normal 29.9-35.2 [facility] Comment on above: Performed By: #### C BC #### [facility] [address] [place] [address] Dr. Jackelin Cook MCV (RBC) [Entitic vol] 92.3 fL Normal 80.0-94.0 [facility] Comment on above: Performed By: #### C BC #### [facility] [address] [place] [address] Dr. Jackelin Cook MONO # 1.0 103/ul Critically high 0.3-0.8 [facility] Comment on above: Performed By: #### C BC #### [facility] [address] [place] [address] Dr. Jackelin Cook Monocytes/100 WBC (Bld) 6.5 % Normal 1.7-12.0 [facility] Comment on above: Performed By: #### C BC #### [facility] [address] [place] [address] Dr. Jackelin Cook NEUT # 11.7 103/ul Critically high 1.4-6.5 [facility] Comment on above: Performed By: #### C BC #### [facility] [address] [place] [address] Dr. Jackelin Cook Neutrophils/100 WBC (Bld) 75.4 % Critically high 43.0-75.0 [facility] Comment on above: Performed By: #### C BC #### [facility] [address] [place] [address] Dr. Jackelin Cook Platelet mean volume (Bld) [Entitic vol] 9.1 fL Critically low 9.5-13.5 [facility] Comment on above: Performed By: #### C BC #### [facility] [address] [place] [address] Dr. Jackelin Cook PLT 342 103/ul Normal 150-450 [facility] Comment on above: Performed By: #### C BC #### [facility] [address] [place] [address] Dr. Jackelin Cook RBC 5.07 106/ul Normal 4.70-6.10 [facility] Comment on above: Performed By: #### C BC #### [facility] [address] [place] [address] Dr. Jackelin Cook WBC 15.5 103/ul Critically high 4.0-11.0 [facility] Comment on above: Performed By: #### C BC #### [facility] [address] [place] [address] ABD/PELV W Jimena 11-20-[address] ABD/PELV W CON TECHNIQUE: CT abdome [...] REGINA CANNON Date: 2021-11-19 20:06 Normal [facility] Covid-19 PCR (CVDTBH)on 11-08 SARS-CoV-2 (COVID-19) RNA PHUONG+probe Ql (Unsp spec) Not detected Normal NOT DETECTED [facility] Comment on above: Result Comment: When diagnostic [...] for this test is supported by the Director Data Architecture of Health and Human Service's declaration that [...] used). Performed By: #### C VDTBH #### [facility] [address] [place] [address] Dr. Jackelin Cook LACTATE/LACTIC ACIDon 2021 Lactate [Moles/Vol] 0.7 mmol/L Normal 0.4-1.9 [facility] Comment on above: Performed By: #### L ACT #### [facility] [address] [place] [address] Dr. Jackelin Cook LIPASEon 11-19-2021 Lipase [Catalytic activity/Vol] 77.0 U/L Normal 73.0-393.0 [facility] Comment on above: Performed By: #### C GISELE LIPA #### [facility] [address] [place] [address] Dr. Jackelin Cook PROF 14(COMP METB)on 022 Albumin [Mass/Vol] 3.3 g/dL Critically low 3.4-5.0 [facility] Comment on above: Performed By: #### C GISELE LIPA #### [facility] [address] [address] [address] Jackelin Cook Albumin/Globulin [Mass ratio] 0.8 {ratio} Normal [facility] Comment on above: Performed By: #### C MP, LIPA #### [facility] [address] [place] [address] [address] Jackelin Cook ALP [Catalytic activity/Vol] 134 U/L Critically high 46-116 [facility] Comment on above: Performed By: #### C MP, LIPA #### [facility] [address] [address] [address] Jackelin Cook ALT [Catalytic activity/Vol] 29 U/L Normal 16-63 [facility] Comment on above: Performed By: #### C MP, LIPA #### [facility] [address] [address] [address] Jackelin Cook Anion gap [Moles/Vol] 12.2 mmol/L Normal [facility] Comment on above: Performed By: #### C MP, LIPA #### [facility] [address] [address] [address] Jackelin Cook AST [Catalytic activity/Vol] 14 U/L Critically low 15-37 [facility] Comment on above: Performed By: #### C MP, LIPA #### [facility] [address] [address] [address] Jackelin Cook Bilirubin [Mass/Vol] 0.3 mg/dL Normal 0.2-1.0 [facility] Comment on above: Performed By: #### C MP, LIPA #### [facility] [address] [address] [address] Jackelin Cook Calcium [Mass/Vol] 8.8 mg/dL Normal 8.5-10.1 [facility] Comment on above: Performed By: #### C MP, LIPA #### [facility] [address] [address] [address] Jackelin Cook Chloride [Moles/Vol] 104 mmol/L Normal 98-107 [facility] Comment on above: Performed By: #### C MP, LIPA #### [facility] [address] [address] [address] Jackelin Cook CO2 [Moles/Vol] 25.9 mmol/L Normal 21.0-32.0 [facility] Comment on above: Performed By: #### C MP, LIPA #### [facility] [address] [address] [address] Jackelin Cook Creatinine [Mass/Vol] 0.96 mg/dL Normal 0.70-1.30 [facility] Comment on above: Performed By: #### C MP, LIPA #### [facility] [address] [address] [address] Jackelin Cook EGFR-AF MONTENEGRIN >60 Normal >=60 [facility] Comment on above: Performed By: #### C MP, LIPA #### [facility] [address] [address] [address] Jackelin Cook EGFR-NON AF MONTENEGRIN >60 Normal >=60 [facility] Comment on above: Performed By: #### C MP, LIPA #### [facility] [address] [address] [address] Jackelin Cook Globulin (S) [Mass/Vol] 4.2 g/dL Normal [facility] Comment on above: Performed By: #### C MP, LIPA #### [facility] [address] [address] [address] Jackelin Cook Glucose [Mass/Vol] 109 mg/dL Critically high 74-106 [facility] Comment on above: Performed By: #### C MP, LIPA #### [facility] [address] [address] [address] Jackelin Cook Potassium [Moles/Vol] 4.1 mmol/L Normal 3.5-5.1 [facility] Comment on above: Performed By: #### C MP, LIPA #### [facility] [address] [place] [address] [address] Jackelin Cook Protein [Mass/Vol] 7.5 g/dL Normal 6.4-8.2 [facility] Comment on above: Performed By: #### C MP, LIPA #### [facility] [address] [address] [address] Jackelin Cook Sodium [Moles/Vol] 138 mmol/L Normal 136-145 [facility] Comment on above: Performed By: #### C MP, LIPA #### [facility] [address] [place] [address] Dr. Jakcelin Cook Urea nitrogen [Mass/Vol] 14.0 mg/dL Normal 7.0-18.0 [facility] Comment on above: Performed By: #### C MP, LIPA #### [facility] [address] [place] [address] Dr. Jackelin Cook Urea nitrogen/Creatinin e [Mass ratio] 14.6 mg/mg Normal [facility] Comment on above: Performed By: #### C MP, LIPA #### [facility] [address] [place] [address] Dr. Jackelin Cook PROTIMEon 11-19-2021 INR Coag (PPP) [Relative time] 1.02 {INR} Normal [facility] Comment on above: Performed By: #### P TT, PT #### [facility] [address] [place] [address] Dr. Jackelin Cook INR GUIDELINES SEE BELOW Normal [facility] Comment on above: Result Comment: JÚNIOR RED INR: 2.0 - 3.0 CONDITIONS NOT LISTED BELOW 2.5 - 3.5 FOR PROSTHETIC HEART VALVE REPLACEMENT 2.5 - 3.5 RECURRENT THROMBOSIS Performed By: #### P TT, PT #### [facility] [address] [place] [address] Dr. Jackelin Cook PT Coag (PPP) [Time] 11.0 s Normal 9.0-11.6 [facility] Comment on above: Performed By: #### P TT, PT #### [facility] [address] [place] [address] Dr. Jackelin Cook PTTon 11-19-2021 aPTT Coag (Bld) [Time] 29.6 s Normal 22.3-36.2 [facility] Comment on above: Performed By: #### P TT, PT #### [facility] [address] [address] [address] Jackelin Cook Vital Signs Date Time Vital Sign Value Performing Clinician El hussein 07-11-2023 11:59-0400 Body height 175.26 cm PACK MULE WORKER-BC Janiya Bullimore Work Phone: [facility] 07-11-2023 11:59-0400 Body temperature 98.4 [degF] PACK MULE WORKER-BC Janiya Bullimore Work Phone: [facility] 07-11-2023 11:59-0400 Body weight 109.9 kg PACK MULE WORKER-BC Janiya Bullimore Work Phone: [facility] 07-11-2023 11:59-0400 Diastolic blood pressure 99 mm[Hg] PACK MULE WORKER-BC Janiya Bullimore Work Phone: [facility] 07-11-2023 11:59-0400 Heart rate 81 /min PACK MULE WORKER-BC Janiya Bullimore Work Phone: [facility] 07-11-2023 11:59-0400 Respiratory rate 18 /min PACK MULE WORKER-BC Janiya Bullimore Work Phone: [facility] 07-11-2023 11:59-0400 SaO2% (BldA) [Mass fraction] 98 % PACK MULE WORKER-BC Jnaiya Bullimore Work Phone: [facility] 07-11-2023 11:59-0400 Systolic blood pressure 152 mm[Hg] PACK MULE WORKER-BC Janiya Bullimore Work Phone: [facility] Encounters Encounter Date Encounter Type Care Provider Facility Start: 12-16-2023 End: 12-16-2023 ambulatory PHYSICIAN NO FAMILY Facility:[facility] Start: 07-11-2023 End: 07-11-2023 Emergency department patient visit PACK MULE WORKER-BC Janiya Bullimore Work Phone: [facility] Work Phone: Start: 06-14-2023 ambulatory Kevin MARILOU Facility:[facility] Start: 06-13-2023 End: 06-14-2023 ambulatory Kevin Richards MARILOU Facility:[id number] Start: 04-27-2022 End: 04-27-2022 ambulatory NONE LISTED REQUEST Facility: Start: 11-19-2021 End: 11-19-2021 ambulatory NONE LISTED REQUEST Facility: Procedures Date Procedure Procedure Detail Performing Clinician Start: 07-11-2023 X-ray of right knee PACK MULE WORKER -BC Janiya Watsonimore Work Phone: Plan of Treatment Date Care Activity Detail Author Patient Education Contusion (DC) [facility] Work Phone: Patient referral [facility] Work Phone: Payers Date Payer Category Payer Medicaid [id number] 2023 Medicare [id number] 2023 Medicare [id number] 2023 Unknown [id number] 2011 Unknown [id number] 1975 Unknown [id number] 2.16.84 [id number] 1975 Unknown [id number] 2.16.84 [id number] 1975 Unknown [id number] 2.16.8 [id number] 1975 Unknown [id number] 2.16.8 [id number] 1959 Self-pay Unknown [id number] 2.16.8 [id number] Unknown [id number] 2.16.8 [id number] Unknown [id number] 2.16.8 [id number] Social History Date Type Detail Facility Start: 07-11-2023 Tobacco smoking stat us NHIS Smoker (finding) [facility] Start: 1975 Sex Assigned At Male F [facility] History and physical note 06-16-2023 Note Date & Type Note Facility 06-16-2023 Note [id number] #[id number] Yonatan [facility] Clinical Note 04-27-2022 Note Date & Type [...] authenticated by: LALITHA CARMONA Date: 2022-04-27 08:24 [facility] Evaluation note Note Date & Type Note Facility Evaluation note No assessment information availa ble [facility] Work Phone: Hospital Discharge instructions Note Date & Type Note Facility Hospital Discharge instructions Additional Instructions Rest ice elevate Apply antibiotic ointment a bandage to the abrasion until healed Wear the Tamir wrap as needed for comfort Take the ketorolac every 6 hours for pain take with food Follow-up with [facility] especially if not getting better Return to the ER for worsening pain swelling redness warmth fever chills or any other concerns [facility] Work Phone: Summary Purpose Family History [...] and content) DATE CREATED AUTHOR 05/02/2022 [facility] DATE CREATED AUTHOR AUTHOR'S ORGANIZ ATION 06/22/2023 Yonatan Loaiza [facility] DATE CREATED AUTHOR AUTHOR'S ORGANIZ ATION 12/31/2023 [facility] Care Teams (unrecognized sec tion and content) Team Status: Active Member Role Status Dates Larissa Ko DO Family Provider Active PHYSICIAN NO FAMILY Primary Care Provider Active Team Status: Inactive Member Role Status Dates Janiya Correa , [facility]- Emergency Provider Active Start: July 11, 2023 [...] BE BASED ON THE PRIMARY CLINICAL RECORDS. [employer] [facility]. provides no warranty or guarantee of the accuracy or completeness of information in this document.
--- NOTE | 2024-10-16 10:38 | CT_ITS ---
The [address] [address] Patient Name: CAMRYN GOOD MRN: [id number] date: 1975 Sex: M Assigned Patient Location: ER Current Patient Location: ER Accession/Order Number: [id number] Exam Date: 10/16/2024 11:10 Report Date: 10/16/2024 12:08 At the request of: ROCÍO VAZQUEZ MD Procedure: CT abdomen pelvis w con CT ABDOMEN AND PELVIS WITH CONTRAST COMPARISON: 11/19/2021 CLINICAL DATA: Abdominal pain, nausea, vomiting and bloody diarrhea. Spiral images were obtained through the abdomen and pelvis following 100 mL of Omnipaque 300. This CT exam was performed using one or more following dose reduction techniques: Automated exposure control, adjustment of the mA and/or kV according to patient size, or use of iterative reconstruction technique. Limited cuts through the lung bases show no contributory findings. The gallbladder is mildly hydropic. There is redemonstration of calcification toward the gallbladder neck that may be within the wall however stone is not excluded. This is unchanged. There is no choledocholithiasis. There are potential tiny hepatic cysts. No other intrahepatic masses are seen. The spleen, pancreas and adrenal glands show no acute findings. There are symmetric renal nephrograms, without hydronephrosis. The abdominal aorta is normal caliber with minor atherosclerotic plaque. Tiny lymph nodes are visualized. No ascites is seen. Small bowel loops are not disproportionately distended though there are some containing air and others fluid. There is air and a small amount of fluid within the colon. There is no prominent stool. There is slight S-shaped thoracolumbar scoliotic curvature as well as degenerative changes at the spine. There is bilateral L5 spondylolysis with mild associated lumbosacral spondylolisthesis. Images through the pelvis show no dilated small bowel though there are some loops containing fluid. There is also fluid within the colon. There is a segment of proximal sigmoid colon with extensive wall thickening. There is mild pericolonic stranding at this site. Inflammation was also seen at this segment of the colon at the time the prior though findings may be slightly worse on the current exam. There is no evidence of associated abscess or perforation. The prostate is not significantly enlarged. There are no urinary bladder abnormalities for the degree of distention. There are mildly patulous inguinal rings containing fat . CT/CT abdomen pelvis w con IMPRESSION: MILDLY HYDROPIC GALLBLADDER WITH WALL CALCIFICATION AND/OR CHOLELITHIASIS SIMILAR TO THE PRIOR. NO BOWEL OR URINARY TRACT OBSTRUCTION. CONTINUED ABNORMAL APPEARANCE OF THE PROXIMAL SIGMOID COLON. CORRELATION IS RECOMMENDED WITH ANY FURTHER WORKUP THAT WAS PERFORMED AT THE TIME OF THE PRIOR. THIS COULD BE COLITIS AND/OR POSSIBLY DIVERTICULITIS. UNDERLYING NEOPLASM IS THOUGHT UNLIKELY THOUGH NOT EXCLUDED ON THE BASIS OF THIS STUDY. Impression dictated by: Steff Zapata M.D. 10/16/2024 12:08 PM Dictation Location: [place] [address] Electronically authenticated by: [id number] Y Date: 10/16/2024 12:08
--- NOTE | 2024-10-16 10:39 | ED.GENADUL1 ---
HPI HPI - General Adult General Chief complaint: Abdominal Pain Stated complaint: VOMITING RECTAL BLEEDING Time Seen by Provider: 10/16/24 10:21 Source: patient Mode of arrival: walk-in Limitations: no limitations History of Present Illness HPI narrative: 49-year-old male presents to the emergency department for nausea and vomiting and diarrhea. He also saw some blood in his stool. He states this started 4 days ago when he bought a tuna sandwich and he ate some of it. Since then he has not felt well but 2 days ago he was able to go to [place]. No fever and he has never passed blood before. Related Data Previous Rx's ?Medication ?Instructions ?Recorded ciprofloxacin HCl 500 mg tablet 500 mg PO Q12H #20 tabs 10/16/24 (Cipro) metronidazole 500 mg tablet 500 mg PO TID #30 tabs 10/16/24 Allergies Allergy/AdvReac Type Severity Reaction Status Date / Time aspirin Allergy Mild asthma Verified 10/16/24 10:31 Opioid HPI Opioid Management Most Recent Opioid Data: Last Pain Scale 9 Today, 10:27 Review of Systems ROS Narrative A ten point review of systems is negative except as noted above. PFSH PFSH Social History Little interest or pleasure in doing things: not at all Feeling down, depressed, or hopeless: not at all Exam Narrative Exam Narrative: Nurses note and vital signs reviewed and patient is not hypoxic. General: The patient appears well and in no apparent distress. Patient is resting comfortably on cart. Skin: Warm, dry, no pallor noted. There is no rash noted. Head: Normocephalic, atraumatic Eye: Normal conjunctiva, no drainage Ears, Nose, Mouth, and Throat: oral mucosa is moist. Nares patent. Cardiovascular: Regular Rate and Rhythm Respiratory: Patient is in no distress, no accessory muscle use, lungs are, no CVA tenderness bilaterally to percussion. GI: Soft and nontender. No masses. Perianal examination showed no external hemorrhoids. Musculoskeletal: The patient has no evidence of calf tenderness, no pitting edema, symmetrical pulses noted bilaterally Neurological: A&O, normal speech Psychiatric: Cooperative Constitutional Vital Signs, click to edit/add: Last Vital Signs Temp 98 F 10/16/24 10:27 Pulse 71 10/16/24 10:27 Resp 16 10/16/24 10:27 BP 158/90 H 10/16/24 10:35 Pulse Ox 99 10/16/24 10:27 O2 Del Method Room Air 10/16/24 10:27 Course Vital Signs Vital signs: Vital Signs Temperature 98 F 10/16/24 10:27 Pulse Rate 71 10/16/24 10:27 Respiratory Rate 16 10/16/24 10:27 Blood Pressure 176/114 H 10/16/24 10:27 Pulse Oximetry 99 10/16/24 10:27 Oxygen Delivery Method Room Air 10/16/24 10:27 Temperature 98 F 10/16/24 10:27 Pulse Rate 71 10/16/24 10:27 Respiratory Rate 16 10/16/24 10:27 Blood Pressure 158/90 H 10/16/24 10:35 Pulse Oximetry 99 10/16/24 10:27 Oxygen Delivery Method Room Air 10/16/24 10:27 Medical Decision Making MDM Narrative Medical decision making narrative: Colitis is identified on his CAT scan. He does not require admission to the hospital and is prescribed Cipro and Flagyl. I also discussed follow-up colonoscopy with him and he will speak to his PCP. Treatment diagnosis and follow-up were discussed with the patient. Differential Diagnosis Differential Diagnosis: Colitis, constipation, diverticulitis, food poisoning Lab Data Lab results reviewed: Yes I reviewed the patient's lab results Labs: Lab Results 10/16/24 Range/Units 10:50 WBC 19.2 H (4.0-11.0) 10^3/uL RBC 5.48 (4.70-6.10) 10^6/uL Hgb 16.6 (14.0-18.0) g/dL Hct 49.7 (42.0-54.0) % MCV 90.7 (80.0-94.0) fL MCH 30.3 (25.9-34.0) pg MCHC 33.4 (29.9-35.2) g/dL RDW 13.4 (11.0-15.0) % Plt Count 369 (150-450) 10^3/uL MPV 9.5 (9.5-13.5) fL Neut % (Auto) 81.5 H (43.0-75.0) % Lymph % (Auto) 10.1 L (20.5-60.0) % [place] % (Auto) 6.3 (1.7-12.0) % Eos % (Auto) 1.3 (0.9-7.0) % Baso % (Auto) 0.3 (0.2-2.0) % Neut # (Auto) 15.6 H (1.4-6.5) 10^3/uL Lymph # (Auto) 1.9 (1.2-3.8) 10^3/uL [place] # (Auto) 1.2 H (0.3-0.8) 10^3/uL Eos # (Auto) 0.2 (0.0-0.7) 10^3/uL Baso # (Auto) 0.1 (0.0-0.1) 10^3/uL Abs Immat Gran (auto) 0.09 H (0.00-0.03) 10^3/uL Imm/Tot Granulo (auto) 0.5 (0.0-0.5) % Sodium 140 (136-145) mmol/L Potassium 3.6 (3.5-5.1) mmol/L Chloride 102 (98-107) mmol/L Carbon Dioxide 26.5 (21.0-32.0) mmol/L Anion Gap 15.1 BUN 16.0 (7.0-18.0) mg/dL Creatinine 0.77 (0.70-1.30) mg/dL Est GFR ( Amer) >60 (>=60 mL/min/1.73m^2) Est GFR (Non-Af Amer) >60 (>=60 mL/min/1.73m^2) BUN/Creatinine Ratio 20.8 Glucose 100 (74-106) mg/dL Calcium 8.9 (8.5-10.1) mg/dL Imaging Data CT scan - abdomen: Radiologist's impression: ITS Impressions Abdomen/Pelvis CT 10/16/24 10:38 IMPRESSION: MILDLY HYDROPIC GALLBLADDER WITH WALL CALCIFICATION AND/OR CHOLELITHIASIS SIMILAR TO THE PRIOR. NO BOWEL OR URINARY TRACT OBSTRUCTION. CONTINUED ABNORMAL APPEARANCE OF THE PROXIMAL SIGMOID COLON. CORRELATION IS RECOMMENDED WITH ANY FURTHER WORKUP THAT WAS PERFORMED AT THE TIME OF THE PRIOR. THIS COULD BE COLITIS AND/OR POSSIBLY DIVERTICULITIS. UNDERLYING NEOPLASM IS THOUGHT UNLIKELY THOUGH NOT EXCLUDED ON THE BASIS OF THIS STUDY. Impression dictated by: Steff Zapata M.D. 10/16/2024 12:08 PM Dictation Location: [employer] Electronically authenticated by: [id number] Y Date: 10/16/2024 12:08 Discharge Plan Discharge Chief Complaint: Abdominal Pain Clinical Impression: Colitis Patient Disposition: Home, Self-Care Time of Disposition Decision: 12:17 Condition: Good Mode of Transportation: Private Vehicle Prescriptions / Home Meds: New metronidazole 500 mg tablet 500 mg PO TID Qty: 30 0RF ciprofloxacin HCl [Cipro] 500 mg tablet 500 mg PO Q12H Qty: 20 0RF Print Language: [place] Instructions: Colitis (ED) Referrals: Physician,Non-Staff, MD [Primary Care Provider] - 1 week
[2024-10-16] MEDS: 0.9 % SODIUM CHLORIDE 1,000 ML 1000 ML IV (10:58)
[2024-10-16 11:02] LABS: Hematocrit 49.7 % (42.0-54.0); Hemoglobin 16.6 g/dL (14.0-18.0); Immature Granulocytes Abs Auto 0.09 10^3/uL (0.00-0.03); Immature Granulocytes Pct Auto 0.5 % (0.0-0.5); Lymphocytes Absolute Auto 1.9 10^3/uL (1.2-3.8); Mean Corpuscular HGB Conc 33.4 g/dL (29.9-35.2); Mean Corpuscular Hemoglobin 30.3 pg (25.9-34.0); Mean Corpuscular Volume 90.7 fL (80.0-94.0); Platelet Count 369 10^3/uL (150-450); Red Blood Count 5.48 10^6/uL (4.70-6.10); White Blood Count 19.2 10^3/uL (4.0-11.0)
--- NOTE | 2024-10-16 11:03 | PC.NURSE ---
Pt presents to ER for abdominal pain N/V/D for several days that started after eating a tuna sandwich purchased from the store Pt reports rectal bleeding with wiping - this was visualized by the physician Pts son at bedside Pt gowned, IV started, prepped for CT
[2024-10-16 11:15] LABS: Anion Gap 15.1; Blood Urea Nitrogen 16.0 mg/dL (7.0-18.0); Calcium 8.9 mg/dL (8.5-10.1); Carbon Dioxide 26.5 mmol/L (21.0-32.0); Chloride 102 mmol/L (98-107); Estimated GFR (African America >60 (>=60 mL/min/1.73m^2); Estimated GFR (Non-African Ame >60 (>=60 mL/min/1.73m^2); Glucose 100 mg/dL (74-106); Potassium 3.6 mmol/L (3.5-5.1); Sodium 140 mmol/L (136-145)
== END 2024-10-16 12:48 | disposition home or self-care (01) ==
PROVIDERS: Emergency Provider Emergency Medicine
DX: K52.9 Noninfective gastroenteritis and colitis, unspecified (principal)
CPT/HCPCS: 36415; 74177; 80048; 85025; 96361; 96374; 99284; J2405; Q9967

== ENCOUNTER 2024-10-28 14:14 | Emergency (ER) | payer MEDICARE, MEDICAID, SELFPAY ==
[2024-10-28 14:19] VITALS: BP 161/107; PULSE 107; TEMP 36.8; O2SAT 96; BMI 32.5
--- OUTSIDE RECORDS SUMMARY | 2024-10-28 14:20 | XMS_ITS | Clinical Summary ---
Author Organization [employer] tem Address [id number] [address] [place] [address] Care Team Providers Care Regional Account Manager Name Role Phone No Pcp, No Pcp Primary Care Provider Unavailabl e Allergies Active Allergy Reactions Criticality Noted Date Comments Ksj-Fgthlsyrarkii-Uroh-Buffers 02/28 Medications No known medications Social History [...] Medical Devices Not on file Care Teams Regional Account Manager Relationship Specialty Start Date End Date No Pcp, No Pcp TREV Valdes [id number] PCP - General Family Medicine 02/28/19
--- OUTSIDE RECORDS SUMMARY | 2024-10-28 14:21 | XMS_ITS | CCD ---
Author Organization [facility] ion [facility] Care Team Providers Care Disability Coordinator Name Role Phone REQUEST, DR NONE LISTED [...] REGINA Consulting Unavailable NILLKevin Attending Unavailable Bull[place], [facility] Janiya E Emergency Provider NO FAMILY, PHYSICIAN [...] Facility (1 source) Aspirin Drug Allergy 03-24-2019 [facility] Repository (1 source) Aspirin Drug Allergy 12-16-2023 [facility] Repository Medications Current Medications Medication Drug Class(es) [...] every four to six hours Hydrocodone-Acetami nophen ([place]usk) 5-325 mg Tablet Discontinued 1 TAB PO EVERY 4-6 HOURS July 25, 2017 July 11, 2023 12:43pm Start: 05-08-2017 End: 05-29-2017 take 1 tablet by mouth every four to six hours Hydrocodone-Acetaminophen (Lusk) 5-325 mg tablet Discontinued 1 TAB PO [...] RT 4V*on 07-11-2023 XR knee RT 4V* [facility] [address] [place] [address] XRay Report Signed Patient: Lester Brown SR MR#: [id number] : 1975 Acct:[id number] Age/Sex: 48 / M ADM Date: 07/11/23 Loc: ER Room: Type: [facility] ER Attending Dr: Copies to: HUEY [...] Michael Victoria M.D.07/11/2023 12:56 PM Dictation Location: [place] [address] Transcribed By: [facility] 07/11/23 1256 Dictated By: Michael Victoria II, MD 07/11/23 1248 Signed By: 07/11/23 1256 Normal [facility] Operative Reporton Operative Report [id number]. 00TIFF Normal [facility] CBC AUTO DIFFon 11-19-2021 BASO # 0.1 103/ul Normal 0.0-0.1 [facility] Comment on above: Performed By: #### C BC #### [facility] [address] [address] [address] Jcakelin Cook Basophils/100 WBC (Bld) 0.5 % Normal 0.2-2.0 [facility] Comment on above: Performed By: #### C BC #### [facility] [address] [address] [address] Jackelin Cook EO # 0.2 103/ul Normal 0.0-0.7 [facility] Comment on above: Performed By: #### C BC #### [facility] [address] [address] [address] Jackelin Cook Eosinophils/100 WBC (Bld) 1.4 % Normal 0.9-7.0 [facility] Comment on above: Performed By: #### C BC #### [facility] [address] [address] [address] Jackelin Cook Erythrocyte distribution width (RBC) [Ratio] 13.4 % Normal 11.0-15.0 [facility] Comment on above: Performed By: #### C BC #### [facility] [address] [place] [address] Dr. Jackelin Cook Hematocrit (Bld) [Volume fraction] 46.8 % Normal 42.0-54.[address] [facility] Comment on above: Performed By: #### C BC #### [facility] [address] [place] [address] Dr. Jackelin Cook Hemoglobin (Bld) [Mass/Vol] 15.3 g/dL Normal 14.0-18.[address] [facility] Comment on above: Performed By: #### C BC #### [facility] [address] [place] [address] Dr. Jackelin Cook IG # 0.06 10e3/ul Critically high 0.00-0.03 [facility] Comment on above: Performed By: #### C BC #### [facility] [address] [place] [address] Dr. Jackelin Cook IG % 0.4 % Normal 0.0-0.5 [facility] Comment on above: Performed By: #### C BC #### [facility] [address] [place] [address] Dr. Jackelin Cook LYMPH # 2.5 103/ul Normal 1.2-3.8 [facility] Comment on above: Performed By: #### C BC #### [facility] [address] [place] [address] Dr. Jackelin Cook Lymphocytes/100 WBC (Bld) 15.8 % Critically low 20.5-60.0 [facility] Comment on above: Performed By: #### C BC #### [facility] [address] [place] [address] Dr. Jackelin Cook MANUAL DIFF REQ NO Normal [facility] Comment on above: Performed By: #### C BC #### [facility] [address] [place] [address] Dr. Jackelin Cook MCH (RBC) [Entitic mass] 30.2 pg Normal 25.9-34.0 [facility] Comment on above: Performed By: #### C BC #### [facility] [address] [place] [address] Dr. Jackelin Cook MCHC (RBC) [Mass/Vol] 32.7 g/dL Normal 29.9-35.2 [facility] Comment on above: Performed By: #### C BC #### [facility] [address] [place] [address] Dr. Jackelin Cook MCV (RBC) [Entitic vol] 92.3 fL Normal 80.0-94.0 [facility] Comment on above: Performed By: #### C BC #### [facility] [address] [place] [address] Dr. Jackelin Cook MONO # 1.0 103/ul Critically high 0.3-0.8 [facility] Comment on above: Performed By: #### C BC #### [facility] [address] [place] [address] Dr. Jackelin Cook Monocytes/100 WBC (Bld) 6.5 % Normal 1.7-12.0 [facility] Comment on above: Performed By: #### C BC #### [facility] [address] [place] [address] Dr. Jackelin Cook NEUT # 11.7 103/ul Critically high 1.4-6.5 [facility] Comment on above: Performed By: #### C BC #### [facility] [address] [place] [address] Dr. Jackelin Cook Neutrophils/100 WBC (Bld) 75.4 % Critically high 43.0-75.0 [facility] Comment on above: Performed By: #### C BC #### [facility] [address] [place] [address] Dr. Jackelin Cook Platelet mean volume (Bld) [Entitic vol] 9.1 fL Critically low 9.5-13.[address] [facility] Comment on above: Performed By: #### C BC #### [facility] [address] [place] [address] Dr. Jackelin Cook PLT 342 103/ul Normal 150-[address] [facility] Comment on above: Performed By: #### C BC #### [facility] [address] [place] [address] Dr. Jackelin Cook RBC 5.07 106/ul Normal 4.70-6.[address] [facility] Comment on above: Performed By: #### C BC #### [facility] [address] [place] [address] Dr. Jackelin Cook WBC 15.5 103/ul Critically high 4.0-11.0 [facility] Comment on above: Performed By: #### C BC #### [facility] [address] [place] [address] ABD/PELV W Jimena [...] REGINA CANNON Date: 2021-11-19 20:06 Normal [facility] Covid-19 PCR (CVDTBH)on 11-08 SARS-CoV-2 (COVID-19) RNA PHUONG+probe Ql (Unsp spec) Not detected Normal NOT DETECTED [facility] Comment on above: Result Comment: [...] for this test is supported by the [place] of Health and Human Service's declaration that [...] used). Performed By: #### C VDTBH #### [facility] [address] [place] [address] Dr. Jackelin Cook LACTATE/LACTIC ACIDon 2021 Lactate [Moles/Vol] 0.7 mmol/L Normal 0.4-1.9 [facility] Comment on above: Performed By: #### L ACT #### [facility] [address] [place] [address] Dr. Jackelin Cook LIPASEon 11-19-2021 Lipase [Catalytic activity/Vol] 77.0 U/L Normal 73.0-393.0 [facility] Comment on above: Performed By: #### C GISELE LIPA #### [facility] [address] [place] [address] Dr. Jackelin Cook PROF 14(COMP METB)on 022 Albumin [Mass/Vol] 3.3 g/dL Critically low 3.4-5.0 [facility] Comment on above: Performed By: #### C GISELE LIPA #### [facility] [address] [address] [address] Jackelin Cook Albumin/Globulin [Mass ratio] 0.8 {ratio} Normal [facility] Comment on above: Performed By: #### C MP, LIPA #### [facility] [address] [address] [address] Jackelin Cook ALP [Catalytic activity/Vol] 134 U/L Critically high 46-116 [facility] Comment on above: Performed By: #### C MP, LIPA #### [facility] [address] [address] [address] Jackelin Cook ALT [Catalytic activity/Vol] 29 U/L Normal 16-63 [facility] Comment on above: Performed By: #### C MP, LIPA #### [facility] [address] [address] [address] Jackelin Cook Anion gap [Moles/Vol] 12.2 mmol/L Normal [facility] Comment on above: Performed By: #### C MP, LIPA #### [facility] [address] [address] [address] Jackelin Cook AST [Catalytic activity/Vol] 14 U/L Critically low 15-37 [facility] Comment on above: Performed By: #### C MP, LIPA #### [facility] [address] [address] [address] Jackelin Cook Bilirubin [Mass/Vol] 0.3 mg/dL Normal 0.2-1.0 [facility] Comment on above: Performed By: #### C MP, LIPA #### [facility] [address] [address] [address] Jackelin Cook Calcium [Mass/Vol] 8.8 mg/dL Normal 8.5-10.1 [facility] Comment on above: Performed By: #### C MP, LIPA #### [facility] [address] [address] [address] Jackelin Cook Chloride [Moles/Vol] 104 mmol/L Normal 98-107 [facility] Comment on above: Performed By: #### C MP, LIPA #### [facility] [address] [address] [address] Jackelin Cook CO2 [Moles/Vol] 25.9 mmol/L Normal 21.0-32.0 [facility] Comment on above: Performed By: #### C MP, LIPA #### [facility] [address] [address] [address] Jackelin Cook Creatinine [Mass/Vol] 0.96 mg/dL Normal 0.70-1.30 [facility] Comment on above: Performed By: #### C MP, LIPA #### [facility] [address] [address] [address] Jackelin Cook EGFR-AF ARGENTINE >60 Normal >=60 [facility] Comment on above: Performed By: #### C MP, LIPA #### [facility] [address] [address] [address] Jackelin Cook EGFR-NON AF ARGENTINE >60 Normal >=60 [facility] Comment on above: Performed By: #### C MP, LIPA #### [facility] [address] [address] [address] Jackelin Cook Globulin (S) [Mass/Vol] 4.2 g/dL Normal [facility] Comment on above: Performed By: #### C MP, LIPA #### [facility] [address] [address] [address] Jackelin Cook Glucose [Mass/Vol] 109 mg/dL Critically high 74-106 [facility] Comment on above: Performed By: #### C MP, LIPA #### [facility] [address] [address] [address] Jackelin Cook Potassium [Moles/Vol] 4.1 mmol/L Normal 3.5-5.1 [facility] Comment on above: Performed By: #### C MP, LIPA #### [facility] [address] [address] [address] Jackelin Cook Protein [Mass/Vol] 7.5 g/dL Normal 6.4-8.2 [facility] Comment on above: Performed By: #### C MP, LIPA #### [facility] [address] [address] [address] Jackelin Cook Sodium [Moles/Vol] 138 mmol/L Normal 136-145 [facility] Comment on above: Performed By: #### C MP, LIPA #### [facility] [address] [place] [address] Dr. Jackelin Cook Urea nitrogen [Mass/Vol] 14.0 mg/dL Normal 7.0-18.0 [facility] Comment on above: Performed By: #### C MP, LIPA #### [facility] [address] [place] [address] Dr. Jackelin Cook Urea nitrogen/Creatinin e [Mass ratio] 14.6 mg/mg Normal [facility] Comment on above: Performed By: #### C MP, LIPA #### [facility] [address] [place] [address] Dr. Jackelin Cook PROTIMEon 11-19-2021 INR Coag (PPP) [Relative time] 1.02 {INR} Normal [facility] Comment on above: Performed By: #### P TT, PT #### [facility] [address] [place] [address] Dr. Jackelin Cook INR GUIDELINES SEE BELOW Normal [facility] Comment on above: Result Comment: JÚNIOR RED INR: 2.0 - 3.0 CONDITIONS NOT LISTED BELOW 2.5 - 3.5 FOR PROSTHETIC HEART VALVE REPLACEMENT 2.5 - 3.5 RECURRENT THROMBOSIS Performed By: #### P TT, PT #### [facility] [address] [place] [address] Dr. Jackelin Cook PT Coag (PPP) [Time] 11.0 s Normal 9.0-11.6 [facility] Comment on above: Performed By: #### P TT, PT #### [facility] [address] [place] [address] Dr. Jackelin Cook PTTon 11-19-2021 aPTT Coag (Bld) [Time] 29.6 s Normal 22.3-36.2 [facility] Comment on above: Performed By: #### P TT, PT #### [facility] [address] [address] [address] Jackelin Cook Vital Signs Date Time Vital Sign Value Performing Clinician El hussein 07-11-2023 11:59-0400 Body height 175.26 cm RING ROLLING MACHINE OPERATOR-BC Janiya Bullimore Work Phone: [facility] 07-11-2023 11:59-0400 Body temperature 98.4 [degF] RING ROLLING MACHINE OPERATOR-BC Janiya Bullimore Work Phone: [facility] 07-11-2023 11:59-0400 Body weight 109.9 kg RING ROLLING MACHINE OPERATOR-BC Janiya Bullimore Work Phone: [facility] 07-11-2023 11:59-0400 Diastolic blood pressure 99 mm[Hg] RING ROLLING MACHINE OPERATOR-BC Janiya Bullimore Work Phone: [facility] 07-11-2023 11:59-0400 Heart rate 81 /min RING ROLLING MACHINE OPERATOR-BC Janiya Bullimore Work Phone: [facility] 07-11-2023 11:59-0400 Respiratory rate 18 /min RING ROLLING MACHINE OPERATOR-BC Janiya Bullimore Work Phone: [facility] 07-11-2023 11:59-0400 SaO2% (BldA) [Mass fraction] 98 % RING ROLLING MACHINE OPERATOR-BC Janiya Bullimore Work Phone: [facility] 07-11-2023 11:59-0400 Systolic blood pressure 152 mm[Hg] RING ROLLING MACHINE OPERATOR-BC Janiya Bullimore Work Phone: [facility] Encounters Encounter Date Encounter Type Care Provider Facility Start: 12-16-2023 End: 12-16-2023 ambulatory PHYSICIAN NO FAMILY Facility:[facility] Start: 07-11-2023 End: 07-11-2023 Emergency department patient visit RING ROLLING MACHINE OPERATOR-BC Janiya Bullimore Work Phone: [facility] Work Phone: Start: 06-14-2023 ambulatory Kevin MARILOU Facility:[facility] Start: 06-13-2023 End: 06-14-2023 ambulatory Kevin Richards MARILOU Facility:[id number] Start: 04-27-2022 End: 04-27-2022 ambulatory NONE LISTED REQUEST Facility: Start: 11-19-2021 End: 11-19-2021 ambulatory NONE LISTED REQUEST Facility: Procedures Date Procedure Procedure Detail Performing Clinician Start: 07-11-2023 X-ray of right knee RING ROLLING MACHINE OPERATOR -BC Janiya Watsonimore Work Phone: Plan of Treatment Date Care Activity Detail Author Patient Education Contusion (DC) [facility] Work Phone: Patient referral [facility] Work Phone: Payers Date Payer Category Payer Medicaid [id number] 2023 Medicare [id number] 2023 Medicare [id number] 2023 Unknown [id number] 2011 Unknown [id number] 1975 Unknown [id number] 2.16.84 [id number] 1975 Unknown [id number] 2.16.84 [id number] 1975 Unknown [id number] 2.16.8 [id number] 1975 Unknown [id number] 2.16.8 [id number] 1959 Self-pay Unknown [id number] 2.16.8 [id number] Unknown [id number] 2.16.8 [id number] Unknown [id number] 2.16.8 [id number] Social History Date Type Detail Facility Start: 07-11-2023 Tobacco smoking stat us NHIS Smoker (finding) [facility] Start: 1975 Sex Assigned At Male F [facility] History and physical note 06-16-2023 Note Date & Type Note Facility 06-16-2023 Note [id number] #[id number] Yonatan [facility] Clinical Note 04-27-2022 Note Date & [...] authenticated by: LALITHA CARMONA Date: 2022-04-27 08:24 [facility] Evaluation note Note Date & Type Note Facility Evaluation note No assessment information availa ble [facility] Work Phone: Hospital Discharge instructions Note Date & Type Note Facility Hospital Discharge instructions Additional Instructions Rest ice elevate Apply antibiotic ointment a bandage to the abrasion until healed Wear the Tamir wrap as needed for comfort Take the ketorolac every 6 hours for pain take with food Follow-up with [facility] especially if not getting better Return to the ER for worsening pain swelling redness warmth fever chills or any other concerns [facility] Work Phone: Summary Purpose Family [...] AUTHOR AUTHOR'S ORGANIZ ATION 06/22/2023 Yonatan Loaiza [facility] DATE CREATED AUTHOR AUTHOR'S ORGANIZ ATION 12/31/2023 [facility] Care Teams (unrecognized sec tion and content) Team Status: Active Member Role Status Dates Larissa Ko DO Family Provider Active PHYSICIAN NO FAMILY Primary Care Provider Active Team Status: Inactive Member Role Status Dates Janiya Correa , [facility]- Emergency Provider Active Start: July 11, 2023 [...] BE BASED ON THE PRIMARY CLINICAL RECORDS. [employer] [facility]. provides no warranty or guarantee of the accuracy or completeness of information in this document.
--- NOTE | 2024-10-28 14:55 | CT_ITS ---
The [address] [address] Patient Name: CAMRYN GOOD MRN: [id number] date: 1975 Sex: M Assigned Patient Location: ER Current Patient Location: ER Accession/Order Number: [id number] Exam Date: 10/28/2024 15:20 Report Date: 10/28/2024 16:38 At the request of: ROCÍO VAZQUEZ MD Procedure: CT abdomen pelvis w con CT ABDOMEN AND PELVIS WITH INTRAVENOUS CONTRAST: CLINICAL HISTORY: low abd pain COMPARISON: 10/16/2024 TECHNIQUE: Spiral images were obtained through the abdomen and pelvis following the administration of intravenous contrast. This CT exam was performed using one or more following dose reduction techniques: Automated exposure control, adjustment of the mA and/or kV according to patient size, or use of iterative reconstruction technique. FINDINGS: Lung Bases: [No focal opacity] Organs:Cholelithiasis. Fatty liver. Gallbladder mildly distended. Kidneys, adrenals, spleen, pancreas unremarkable.[ GI: Redemonstration severe mural thickening involving the sigmoid colon with suspected foci of adjacent extraluminal gas which appear to extend into the retroperitoneum along the anterior margin left psoas muscle. There are large lymph nodes identified possibly reactive..[. No small bowel obstruction. Appendix unremarkable. Pelvis:[Bladder is mostly collapsed. Prostate unremarkable. Tiny fat-containing inguinal hernias.] Peritoneum/Retroperitoneum:There are few prominent retroperitoneal lymph nodes and left iliac chain lymph nodes, indeterminate, could be reactive. No pneumoperitoneum Abd wall/Bones:Multilevel degenerative changes of the lumbar spine. Anterolisthesis L5 on S1 likely due to pars defects.[ CT/CT abdomen pelvis w con IMPRESSION: Segment of severe mural thickening involving sigmoid colon with focal, lobulated masslike appearance proximal to the mural thickening with surrounding inflammatory changes noted. Since prior examination, there is evidence of adjacent retroperitoneal gas along the psoas muscle worrisome for perforation to the retroperitoneum. Given the appearance, perforated mass/neoplasm and/or perforated colitis may be considered . Discussed with Lalitha Impression dictated by: Roderick Dawn M.D. 10/28/2024 4:38 PM Dictation Location: [place] [address] Electronically authenticated by: [id number] Y Date: 10/28/2024 16:38
[2024-10-28] MEDS: 0.9 % SODIUM CHLORIDE 1,000 ML 1000 ML IV (15:07)
[2024-10-28] MEDS: MORPHINE SULFATE 4 MG/ML VIAL IV (15:07)
[2024-10-28 15:14] LABS: Hematocrit 48.4 % (42.0-54.0); Hemoglobin 16.2 g/dL (14.0-18.0); Mean Corpuscular HGB Conc 33.5 g/dL (29.9-35.2); Mean Corpuscular Hemoglobin 30.3 pg (25.9-34.0); Mean Corpuscular Volume 90.6 fL (80.0-94.0); Platelet Count 451 10^3/uL (150-450); Red Blood Count 5.34 10^6/uL (4.70-6.10); White Blood Count 27.8 10^3/uL (4.0-11.0)
--- NOTE | 2024-10-28 15:29 | ED_ITS ---
HPI HPI - General Adult General Chief complaint: Abdominal Pain Stated complaint: ABDOMINAL PAIN, VOMITING Time Seen by Provider: 10/28/24 14:19 Source: patient Mode of arrival: walk-in Limitations: no limitations History of Present Illness HPI narrative: 49-year-old male presents for lower abdominal pain. Woke him up about 3:00 in the morning. He had colitis few weeks ago and finished his antibiotic and felt back to normal until today. No trauma fever constipation diarrhea hematochezia or melena. The pain is continuous. Related Data Allergies Allergy/AdvReac Type Severity Reaction Status Date / Time aspirin Allergy Mild asthma Verified 10/28/24 14:24 Opioid HPI Opioid Management Most Recent Opioid Data: Last Pain Scale 9 Today, 15:07 Last MAR Pain Assessment Today, 15:07 Review of Systems ROS Narrative A ten point review of systems is negative except as noted above. PFSH PFSH Social History Little interest or pleasure in doing things: not at all Feeling down, depressed, or hopeless: not at all Exam Narrative Exam Narrative: Nurses note and vital signs reviewed and patient is not hypoxic. General: The patient appears well and in no apparent distress. Patient is resting comfortably on cart. Skin: Warm, dry, no pallor noted. There is no rash noted. Head: Normocephalic, atraumatic Eye: Normal conjunctiva, no drainage Ears, Nose, Mouth, and Throat: oral mucosa is moist. Nares patent. Cardiovascular: Regular Rate and Rhythm Respiratory: Patient is in no distress, no accessory muscle use, lungs are clear to auscultation, no wheezing, rales or rhonchi Back: non-tender GI: Tenderness across lower abdomen without distention or mass. Musculoskeletal: The patient has no evidence of calf tenderness, no pitting edema, symmetrical pulses noted bilaterally Neurological: A&O, normal speech Psychiatric: Cooperative Constitutional Vital Signs, click to edit/add: Last Vital Signs Temp 98.2 F 10/28/24 14:19 Pulse 75 10/28/24 16:50 Resp 16 10/28/24 16:50 BP 145/87 H 10/28/24 16:50 Pulse Ox 98 10/28/24 16:50 O2 Del Method Room Air 10/28/24 14:19 Course Vital Signs Vital signs: Vital Signs Temperature 98.2 F 10/28/24 14:19 Pulse Rate 107 H 10/28/24 14:19 Respiratory Rate 14 10/28/24 14:19 Blood Pressure 161/107 H 10/28/24 14:19 Pulse Oximetry 96 10/28/24 14:19 Oxygen Delivery Method Room Air 10/28/24 14:19 Temperature 98.2 F 10/28/24 14:19 Pulse Rate 75 10/28/24 16:50 Respiratory Rate 16 10/28/24 16:50 Blood Pressure 145/87 H 10/28/24 16:50 Pulse Oximetry 98 10/28/24 16:50 Oxygen Delivery Method Room Air 10/28/24 14:19 Medical Decision Making MDM Narrative Medical decision making narrative: Colitis and bowel perforation are noted on CAT scan per radiologist with retroperitoneal air. WBC 28,000. He was given IV Zofran and pain medication. I spoke to Dr. Medina at [facility] who accepted the patient in transfer. The patient is stable and agreeable for transfer. I initially spoke to Dr. Chang at [facility] who suggested that the p atient should go to a facility with a higher level of care. Treatment diagnosis and disposition were discussed with the patient. I also spoke to the emergency department physician on duty at [facility] Differential Diagnosis Differential Diagnosis: Colitis, diverticulitis, bowel perforation, UTI, constipation Medical Records Medical records reviewed: Yes I reviewed the patient's medical records Lab Data Lab results reviewed: Yes I reviewed the patient's lab results Labs: Lab Results 10/28/24 Range/Units 14:40 WBC 27.8 H (4.0-11.0) 10^3/uL RBC 5.34 (4.70-6.10) 10^6/uL Hgb 16.2 (14.0-18.0) g/dL Hct 48.4 (42.0-54.0) % MCV 90.6 (80.0-94.0) fL MCH 30.3 (25.9-34.0) pg MCHC 33.5 (29.9-35.2) g/dL RDW 13.8 (11.0-15.0) % Plt Count 451 H (150-450) 10^3/uL MPV 9.8 (9.5-13.5) fL Seg Neuts % (Manual) 87.0 H (43.0-75.0) Lymphocytes % (Manual) 9.0 L (20.5-60.0) % Monocytes % (Manual) 4.0 (1.7-12.0) % Eosinophils % (Manual) 0.0 L (0.9-7.0) % Basophils % (Manual) 0.0 L (0.2-2.0) % Neutrophils # (Manual) 24.18 H (1.4-6.5) 10^3/uL Lymphocytes # (Manual) 2.50 (1.20-3.80) 10^3/uL Monocytes # (Manual) 1.11 H (0.30-0.80) 10^3/uL Eosinophils # (Manual) 0.00 (0.00-0.70) 10^3/uL Basophils # (Manual) 0.00 (0.00-0.10) 10^3/uL Sodium 138 (136-145) mmol/L Potassium 3.9 (3.5-5.1) mmol/L Chloride 104 (98-107) mmol/L Carbon Dioxide 25.2 (21.0-32.0) mmol/L Anion Gap 12.7 BUN 7.0 (7.0-18.0) mg/dL Creatinine 0.82 (0.70-1.30) mg/dL Est GFR ( Amer) >60 (>=60 mL/min/1.73m^2) Est GFR (Non-Af Amer) >60 (>=60 mL/min/1.73m^2) BUN/Creatinine Ratio 8.5 Glucose 105 (74-106) mg/dL Calcium 9.0 (8.5-10.1) mg/dL Total Bilirubin 0.6 (0.2-1.0) mg/dL Direct Bilirubin 0.1 (0.0-0.2) mg/dL AST 14 L (15-37) U/L ALT 23 (16-63) U/L Alkaline Phosphatase 132 H (46-116) U/L Total Protein 8.4 H (6.4-8.2) g/dL Albumin 3.4 (3.4-5.0) g/dL Globulin 5.0 g/dL Albumin/Globulin Ratio 0.7 Amylase 60 (25-115) U/L Lipase 34.0 (16.0-77.0) U/L Imaging Data CT scan - abdomen: Radiologist's impression: ITS Impressions Abdomen/Pelvis CT 10/28/24 14:55 IMPRESSION: Segment of severe mural thickening involving sigmoid colon with focal, lobulated masslike appearance proximal to the mural thickening with surrounding inflammatory changes noted. Since prior examination, there is evidence of adjacent retroperitoneal gas along the psoas muscle worrisome for perforation to the retroperitoneum. Given the appearance, perforated mass/neoplasm and/or perforated colitis may be considered . Discussed with Lalitha Impression dictated by: Roderick Dawn M.D. 10/28/2024 4:38 PM Dictation Location: [facility] Electronically authenticated by: [id number] Y Date: 10/28/2024 16:38 Discharge Plan Discharge Chief Complaint: Abdominal Pain Clinical Impression: Bowel perforation Patient Disposition: [facility] Time of Disposition Decision: 18:17 Discharge Location: [facility] Condition: Fair Mode of Transportation: EMS
[2024-10-28 15:33] LABS: Alanine Aminotransferase 23 U/L (16-63); Albumin Globulin Ratio 0.7; Albumin Level 3.4 g/dL (3.4-5.0); Alkaline Phosphatase 132 U/L (46-116); Amylase 60 U/L (25-115); Anion Gap 12.7; Aspartate Amino Transferase 14 U/L (15-37); Blood Urea Nitrogen 7.0 mg/dL (7.0-18.0); Calcium 9.0 mg/dL (8.5-10.1); Carbon Dioxide 25.2 mmol/L (21.0-32.0); Chloride 104 mmol/L (98-107); Estimated GFR (African America >60 (>=60 mL/min/1.73m^2); Estimated GFR (Non-African Ame >60 (>=60 mL/min/1.73m^2); Globulin 5.0 g/dL; Glucose 105 mg/dL (74-106); Lipase 34.0 U/L (16.0-77.0); Potassium 3.9 mmol/L (3.5-5.1); Sodium 138 mmol/L (136-145); Total Protein 8.4 g/dL (6.4-8.2)
[2024-10-28 16:00] LABS: Basophils Abs Manual 0.00 10^3/uL (0.00-0.10); Basophils Percent Manual 0.0 % (0.2-2.0); Eosinophils Absolute Manual 0.00 10^3/uL (0.00-0.70); Eosinophils Percent Manual 0.0 % (0.9-7.0); Lymphocytes Absolute Manual 2.50 10^3/uL (1.20-3.80); Lymphocytes Percent Manual 9.0 % (20.5-60.0); Monocytes Absolute Manual 1.11 10^3/uL (0.30-0.80); Monocytes Percent Manual 4.0 % (1.7-12.0); Segmented Neut Absolute Manual 24.18 10^3/uL (1.4-6.5); Segmented Neutrophils % Manual 87.0 (43.0-75.0)
[2024-10-28 16:50] VITALS: BP 145/87; PULSE 75; O2SAT 98
[2024-10-28] MEDS: HYDROMORPHONE HCL 1 MG/ML CARTRIDGE IV ×2 (18:20→20:38)
[2024-10-28] MEDS: PIPERACILLIN SODIUM/TAZOBACTAM 3.375 GM in 0.9 % SODIUM CHLORIDE 50 ML IV (18:21)
[2024-10-28 18:30] VITALS: BP 148/94; PULSE 75; O2SAT 98
[2024-10-28 19:03] LABS: Glucose Urine UA NEGATIVE (NEGATIVE)
[2024-10-28 19:16] LABS: Cast Seen? NONE SEEN #/LPF (NONE SEEN); Crystals Seen? None Seen #/HPF (None Seen); Urine Culture Indicated NO
[2024-10-28 19:24] VITALS: BP 139/94; PULSE 74; O2SAT 97
--- NOTE | 2024-10-28 20:31 | PC.NURSE ---
[facility] arrives at this time for transport.
--- NOTE | 2024-10-28 20:47 | PC.NURSE ---
Report given to Dr. Clements at [facility].
== END 2024-10-28 20:58 | disposition short-term general hospital (02) ==
PROVIDERS: Emergency Provider Emergency Medicine
DX: K63.1 Perforation of intestine (nontraumatic) (principal)
CPT/HCPCS: 36415; 74177; 80048; 80076; 81001; 82150; 83690; 85007; 85027; 96365; 96375; 96376; 99285; J1171; J2270; J2405; J2543; Q9967

== ENCOUNTER 2024-11-27 15:45 | Emergency (ER) | payer MEDICARE, MEDICAID, SELFPAY ==
[2024-11-27 15:59] VITALS: BP 167/109; PULSE 67; TEMP 36.8; O2SAT 97; BMI 32.5
--- OUTSIDE RECORDS SUMMARY | 2024-11-27 16:00 | XMS_ITS | CCD ---
Author Organization 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 Name Role Phone REQUEST, DR NONE LISTED Primary Care Unavaila ble REINECK, DR SONIDO Rodriguez Admitting Unavailabl e REINECK, DR SONIDO Rodriguez Attending Unavailabl e REINECK, DR SONIDO Rodriguez Consulting Unavailabl e ZIEBER, DR LALITHA Richards Consulting Unavailable REQUEST, DR NOLAND LISTED Primary Care Unavaila ble PAY ., DR MITCHELL Admitting Unavailable PAY ., DR MITCHELL Attending Unavailable GRECHNY ., JUNAID JONES Consulting Unavailabl e AHDOREGINA LARA Consulting Unavailable Kevin ZAMARRIPA Attending Unavailable Bullimleighann, [facility] Janiya E Emergency Provider NO FAMILY, PHYSICIAN Primary Care Provider Unava ilable NO FAMILY, PHYSICIAN Primary Care Unavailable Bullgerson, Janiya E Attending Unavailable Bullimore, Janiya E Admitting Unavailable NO FAMILY, PHYSICIAN Primary Care Unavailable Ly Idania L Attending Unavailable Ly, Idania L Admitting Unavailable Ly, Idania L Admitting Unavailable NO FAMILY, PHYSICIAN Primary Care Unavailable Ly, Idania L Attending Unavailable ROCÍO VAZQUEZ Referring Unavailable EFRAÍN CALDERON Admitting Unavailable EFRAÍN CALDERON Attending Unavailable ROCÍO VAZQUEZ Referring Unavailable KATIE ENGLISH Referring Unavailable RADHA LYONS Attending Unavailable Allergies Allergy Classification Reported Allergen(s) Allergy Type Date of Onset Reaction(s) Facility (2 sources) Aspirin; Translations: [ASPIRIN] Drug Allergy 0 [facility] Repository (1 source) Aspirin Drug Allergy 4 [facility] Repository (1 source) ALLERGIES NOT ON FILE; Translations: [ALLERGIES NOT ON FILE] Propensity to adverse reactions (disorder) [facility] Repository Medications Current Medications Medication Drug [...] every four to six hours Hydrocodone-Acetami nophen (Brusett) 5-325 mg Tablet Discontinued 1 TAB PO EVERY 4-6 HOURS July 25, 2017 July 11, 2023 12:43pm Start: 05-08-2017 End: 05-29-2017 take 1 tablet by mouth every four to six hours Hydrocodone-Acetaminophen (Brusett) 5-325 mg tablet Discontinued 1 TAB PO [...] Active Problems Problem Classification Problem Date Documented Da te Episodic/Chronic Abdominal pain (6 sources) Left lower quadrant pain; Translations: [Unspecified abdominal pain] Onset: 11-19-2021 Episodic Chronic obstructive pulmonary disease and bronchiectasis (1 [...] IN LEFT FOOT] Onset: 04-27-2022 Episodic Other gastrointestinal disorders (2 sources) Perforation of intestine (nontraumatic); Translations: [Perforation of intestine (nontraumatic)] Onset: 10-28-2024 Episodic Other injuries and conditions due to [...] [CONTACT W/AND (SUSP) EXPOS COVID-19] Onset: 11-21-2021 Unclassified (2 sources) Perforated Bowel Onset: 10-28-2024 Past or Other Problems Problem Classification Problem Date Documented Da te Episodic/Chronic Other injuries and conditions due to external causes (1 source) Unspecified injury of right lower leg, initial encounter; Translations: [Unspecified injury of right lower leg, initial encounter] Onset: 07-11-2023 Episodic Results Test Name Value Interpretation Reference Range Facility Follow-Upon 11-22-2024 Follow-Up [id number] Camryn Brown 1975 M Date Provider Department Center 11/22/2024 RADHA FULLER [facility] SURG Second Fl No family history on file Level of Service:[address] [place] OFFICE/OUTPATIENT ESTABLISHED MOD MDM 30 MIN Normal [facility] 30on 10-31-2024 30 Daily Case Managemen t Update Multidisciplinary rounds have been completed. Barriers to Discharge: Pending clinical course and improvement in clinical condition. Tolerating CLD: Advance diet. IV antibiotics: Zosyn. Perforation: manage conservatively to allow inflammation to decrease Current Discharge plan is to return home when medically ready. Diet: Dietary Orders (From admission, onward) Start Ordered 10/31/24 0703 Regular Diet Fiber Restricted Diet effective now Question Answer Comment Room Service? Yes Other restriction(s): Fiber Restricted 10/31/24 0703 10/29/24 1136 Special Kitchen Request Once Comments: Please send clear liquid tray 10/29/24 1136 Physician Expected Discharge Date: 11/02/2024 Discharge Delays: PT Six Click Score: OT Six Click Score: PT Recommendations: OT Recommendations: New Consults: Normal [facility] BASIC METABOLIC PANELon 09-2 Anion gap [Moles/Vol] 13 mmol/L Normal 7-20 [facility] Comment on above: Performed By: #### L [id number] #### [facility] ([facility]) [address] [place] [address] Calcium [Mass/Vol] 8.8 mg/dL Normal 8.6-10.3 [facility] Comment on above: Performed By: #### L [id number] #### [facility] [address] [place] [address] Chloride [Moles/Vol] 104 mmol/L Normal 98-107 [facility] Comment on above: Performed By: #### L [id number] #### [facility] ([facility]) [address] [place] [address] CO2 [Moles/Vol] 24 mmol/L Normal 21-31 [facility] Comment on above: Performed By: #### L [id number] #### [facility] ([facility]) [address] [place] [address] Creatinine [Mass/Vol] 0.75 mg/dL Normal 0.70-1.30 [facility] Comment on above: Performed By: #### L [id number] #### [facility] ([facility]) [address] [place] [address] GLOMERULAR FILTRATION RATE ML/MIN/1.73 SQ M.PREDICTED 110.6 mL/min/1.73m*2 Normal >60.0 [facility] Comment on above: Result Comment: [facility]???s estimated glomerular filtration rate (eGFR) will no longer include consideration of race in its calculation. The National Kidney Foundation???s eGFR Task Force developed new recommendations for the estimation of the glomerular filtration rate in the [place] They recommend immediate implementation of the new equation refit without the race variable in all laboratories because the calculation does not include race. In addition to not including race in the calculation and reporting, it included diversity in its development, and has acceptable performance characteristics and potential consequences that do not disproportionately affect any one group of individuals. Performed By: #### L [id number] #### [facility] ([facility]) [address] [place] [address] Glucose [Mass/Vol] 89 mg/dL Normal 70-100 [facility] Comment on above: Performed By: #### L [id number] #### [facility] ([facility]) [address] [place] [address] Potassium [Moles/Vol] 3.3 mmol/L Low 3.5-5.1 [facility] Comment on above: Performed By: #### L [id number] #### [facility] ([facility]) [address] [place] [address] Sodium [Moles/Vol] 138 mmol/L Normal 136-145 [facility] Comment on above: Performed By: #### L [id number] #### [facility] ([facility]) [address] [place] [address] Urea nitrogen [Mass/Vol] 4 mg/dL Low 7-25 [facility] Comment on above: Performed By: #### L [id number] #### [facility] ([facility]) [address] [place] [address] UREA NITROGEN/CREATININE (MASS RATIO) IN SER/PLAS 5.3 Normal [facility] Comment on above: Performed By: #### L [id number] #### [facility] ([facility]) [address] [place] [address] CBC WITH AUTO DIFFERENTIALon 10-31-2024 Basophils (Bld) [#/Vol] 0.09 10*3/uL Normal 0.00-0.20 [facility] Comment on above: Performed By: #### L [id number] #### [facility] ([facility]) [address] [place] [address] Basophils/100 WBC (Bld) 0.8 % Normal 0.0-1.0 [facility] Comment on above: Performed By: #### L [id number] #### [facility] [address] [place] [address] Eosinophils (Bld) [#/Vol] 0.58 10*3/uL High 0.00-0.50 [facility] Comment on above: Performed By: #### L [id number] #### [facility] ([facility]) [address] [place] [address] Eosinophils/100 WBC (Bld) 5.2 % Normal 0.0-6.0 [facility] Comment on above: Performed By: #### L [id number] #### [facility] ([facility]) [address] [place] [address] Erythrocyte distribution width (RBC) [Ratio] 14.1 % Normal 11.5-15.0 [facility] Comment on above: Performed By: #### L [id number] #### [facility] ([facility]) [address] [place] [address] ERYTHROCYTE MEAN CORPUSCULAR HEMOGLOBIN CONCENTRATION (G/DL) BY AUTOMATED 33.7 g/dL Normal 32.0-35.0 [facility] Comment on above: Performed By: #### L [id number] #### [facility] ([facility]) [address] [place] [address] Hematocrit (Bld) [Volume fraction] 45.1 % Normal 39.0-50.0 [facility] Comment on above: Performed By: #### L [id number] #### [facility] ([facility]) [address] [place] [address] Hemoglobin (Bld) [Mass/Vol] 15.2 g/dL Normal 13.0-17.0 [facility] Comment on above: Performed By: #### L [id number] #### [facility] ([facility]) [address] [place] [address] Immature granulocytes (Bld) [#/Vol] 0.05 10*3/uL Normal 0.00-0.20 [facility] Comment on above: Performed By: #### L [id number] #### [facility] [address] [place] [address] Immature granulocytes/100 WBC (Bld) 0.4 % Normal 0.0-1.0 [facility] Comment on above: Performed By: #### L [id number] #### [facility] ([facility]) [address] [place] [address] Lymphocytes (Bld) [#/Vol] 3.00 10*3/uL Normal 1.20-4.00 [facility] Comment on above: Performed By: #### L [id number] #### [facility] ([facility]) [address] [place] [address] Lymphocytes/100 WBC (Bld) 26.6 % Normal 20.0-45.0 [facility] Comment on above: Performed By: #### L [id number] #### [facility] ([facility]) [address] [place] [address] MCH (RBC) [Entitic mass] 30.0 pg Normal 27.0-33.0 [facility] Comment on above: Performed By: #### L [id number] #### [facility] ([facility]) [address] [place] [address] MCV (RBC) [Entitic vol] 89.1 fL Normal 82.0-98.0 [facility] Comment on above: Performed By: #### L [id number] #### [facility] ([facility]) [address] [place] [address] Monocytes (Bld) [#/Vol] 1.16 10*3/uL High 0.10-1.00 [facility] Comment on above: Performed By: #### L [id number] #### [facility] [address] [place] [address] Monocytes/100 WBC (Bld) 10.3 % Normal 5.0-12.0 [facility] Comment on above: Performed By: #### L [id number] #### [facility] ([facility]) [address] [place] [address] Neutrophils (Bld) [#/Vol] 6.38 10*3/uL Normal 1.60-7.60 [facility] Comment on above: Performed By: #### L [id number] #### [facility] [address] [place] [address] Neutrophils/100 WBC (Bld) 56.7 % Normal 40.0-72.0 [facility] Comment on above: Performed By: #### L [id number] #### [facility] ([facility]) [address] [place] [address] NRBC (PER 100 WBCS) BY AUTOMATED COUNT 0.0 % Normal 0 [facility] Comment on above: Performed By: #### L [id number] #### [facility] [address] [place] [address] PLATELETS (10*3/UL) IN BLOOD AUTOMATED COUNT 399 10*3/uL Normal 150-400 [facility] Comment on above: Performed By: #### L [id number] #### [facility] ([facility]) [address] [place] [address] RBC (Bld) [#/Vol] 5.06 10*6/uL Normal 4.20-5.70 [facility] Comment on above: Performed By: #### L [id number] #### [facility] ([facility]) [address] [place] [address] WBC (Bld) [#/Vol] 11.26 10*3/uL High 4.00-10.60 [facility] Comment on above: Performed By: #### L [id number] #### [facility] [address] [place] [address] DSon 10-31-2024 DS Admitting Provider: Efraín Calderon MD Discharge Provider: Efraín Calderon MD Admission Date: 10/28/2024 Discharge Date/: Primary Discharge Diagnosis Abdominal pain Discharge Disposition Final discharge disposition not confirmed Code Status at Discharge: Zeinab Brown is a 49 y.o. male who presented on 10/28/2024 as a transfer from [facility] for lower abdominal pain and concern for bowel perforation. 2 weeks prior, he presented to ED and was told he had colitis. He was given antibiotics and discharged. He finished his 10-day course of antibiotics, then developed sudden abdominal pain 1 day prior to admission. He reported having loose bowel movement that appeared brown and normal. However, he noted having intermittent episodes of bloody stools in the past couple months and weight loss of approximately 20 pounds in the past couple weeks. In the ED, patient was afebrile and hemodynamically stable. Labs were notable for WBC 21. Remainder of labs were overall within normal limits including Hgb 15, creatinine 0.76, and lactate 0.6. CT abdomen pelvis from outside hospital was obtained and radiologist reported severe mural thickening of sigmoid colon with mass-like appearance proximal to mural thickening with surrounding inflammation and suspected foci of adjacent extraluminal gas along the anterior margin of the left psoas muscle concerning for perforated mass or colitis. Patient was managed conservatively with IV Zosyn, initiating NPO status, IV fluids and pain control. Patient course improved well. He tolerated dietary advancement without abdominal pain, nausea or vomiting. During his time in the hospital he had no difficulty ambulating, and his pain was adequately controlled. By the 3rd day of hospitalization he was deemed stable for discharge with oral antibiotics (Augmentin for 7 days). Vitals: 10/31/24 1517 BP: (!) 176/95 Pulse: 55 Resp: 18 Temp: 36.7 ???C (98.1 ???F) SpO2: 93% Physical Exam General Appearance: AAOx3, NAD Neck: trachea midline, no JVD Pulmonary: good respiratory effort on room air, no audible wheezing Cardiac: RRR Abdomen: soft, non-distended, non-tender abdomen, no guarding, no rebound tenderness Extremities: no edema bilateral upper and lower extremities Skin: warm and dry without rash Eyes: no scleral icterus The patient was seen and examined on day of discharge and this discharge summary is in conjunction with any daily progress note from day of discharge. Consults: none Significant Diagnostic Studies: CT abdomen and pelvis / Discharge Medications: Your medication list START taking these medications Instructions Last Dose Given Next Dose Due amoxicillin-pot clavulanate 875-125 mg tablet Commonly known as: Augmentin Take 1 tablet by mouth two times daily for 7 days. CONTINUE taking these medications Instructions Last Dose Given Next Dose Due albuterol 90 mcg/actuation inhaler Where to Get Your Medications You can get these medications from any pharmacy Bring a paper prescription for each of these medications amoxicillin-pot clavulanate 875-125 mg tablet Activity: activity as tolerated Diet: regular diet Time spent on discharge: >[address] CARROLL, REFERRED for the opportunity to be involved in this patient's care. By using the attestations below, the signing clinician agrees that I have read and verify that the documentation has been personally reviewed by me and ensure that the documentation accurately reflects the encounter. GC: I personally saw this patient on the day of the encounter, performed the peralta portion(s) of the service and participated in the management and confirm the resident's documentation. Please note there may be an additional personal documentation from me. [facility] MAGNESIUMon 10-31-2024 Magnesium [Mass/Vol] 1.8 mg/dL Low 1.9-2.7 [facility] Comment on above: Performed By: #### L [id number] #### [facility] ([facility]) [address] [place] [address] 30on 10-30-2024 30 Daily Case Managemen t Update Multidisciplinary rounds have been completed. Barriers to Discharge: Pending clinical course and improvement in clinical condition. ED transfer from [facility] for bowel perf/lower abd pain w/ sigmoid colon inflamm. GS recs CLD, serial abd exams, no acute surg intervent at this time. From home. Diet: Dietary Orders (From admission, onward) Start Ordered 10/29/24 1136 Special Kitchen Request Once Comments: Please send clear liquid tray 10/29/24 1136 10/29/24 1004 Clear Liquid Diet Diet effective now Question: Room Service? Answer: No 10/29/24 1003 Physician Expected Discharge Date: 11/02/2024 Discharge Delays: PT Six Click Score: OT Six Click Score: PT Recommendations: OT Recommendations: Does patient understand post acute plan of care? Yes Is expected discharge disposition appropriate for patient?: Yes New Consults: [facility] BASIC METABOLIC PANELon 09-2 Anion gap [Moles/Vol] 13 mmol/L Normal 7-20 [facility] Comment on above: Performed By: #### L [id number] #### [facility] [address] [place] [address] Calcium [Mass/Vol] 8.6 mg/dL Normal 8.6-10.3 [facility] Comment on above: Performed By: #### L [id number] #### [facility] [address] [place] [address] Chloride [Moles/Vol] 105 mmol/L Normal 98-107 [facility] Comment on above: Performed By: #### L [id number] #### [facility] ([facility]) [address] [place] [address] CO2 [Moles/Vol] 23 mmol/L Normal 21-31 [facility] Comment on above: Performed By: #### L [id number] #### [facility] [address] [place] [address] Creatinine [Mass/Vol] 0.75 mg/dL Normal 0.70-1.30 [facility] Comment on above: Performed By: #### L [id number] #### [facility] ([facility]) [address] [place] [address] GLOMERULAR FILTRATION RATE ML/MIN/1.73 SQ M.PREDICTED 110.6 mL/min/1.73m*2 Normal >60.0 [facility] Comment on above: Result Comment: [facility]???s estimated glomerular filtration rate (eGFR) will no longer include consideration of race in its calculation. The National Kidney Foundation???s eGFR Task Force developed new recommendations for the estimation of the glomerular filtration rate in the [place] They recommend immediate implementation of the new equation refit without the race variable in all laboratories because the calculation does not include race. In addition to not including race in the calculation and reporting, it included diversity in its development, and has acceptable performance characteristics and potential consequences that do not disproportionately affect any one group of individuals. Performed By: #### L [id number] #### [facility] ([facility]) [address] [place] [address] Glucose [Mass/Vol] 89 mg/dL Normal 70-100 [facility] Comment on above: Performed By: #### L [id number] #### [facility] ([facility]) [address] [place] [address] Potassium [Moles/Vol] 3.7 mmol/L Normal 3.5-5.1 [facility] Comment on above: Performed By: #### L [id number] #### [facility] ([facility]) [address] [place] [address] Sodium [Moles/Vol] 137 mmol/L Normal 136-145 [facility] Comment on above: Performed By: #### L [id number] #### [facility] ([facility]) [address] [place] [address] Urea nitrogen [Mass/Vol] 4 mg/dL Low 7-25 [facility] Comment on above: Performed By: #### L [id number] #### [facility] ([facility]) [address] [place] [address] UREA NITROGEN/CREATININE (MASS RATIO) IN SER/PLAS 5.3 Normal [facility] Comment on above: Performed By: #### L [id number] #### [facility] ([facility]) [address] [place] [address] CBC WITH AUTO DIFFERENTIALon 10-30-2024 Basophils (Bld) [#/Vol] 0.07 10*3/uL Normal 0.00-0.20 [facility] Comment on above: Performed By: #### L [id number] #### [facility] ([facility]) [address] [place] [address] Basophils/100 WBC (Bld) 0.5 % Normal 0.0-1.0 [facility] Comment on above: Performed By: #### L [id number] #### [facility] ([facility]) [address] [place] [address] Eosinophils (Bld) [#/Vol] 0.23 10*3/uL Normal 0.00-0.50 [facility] Comment on above: Performed By: #### L [id number] #### [facility] [address] [place] [address] Eosinophils/100 WBC (Bld) 1.7 % Normal 0.0-6.0 [facility] Comment on above: Performed By: #### L [id number] #### [facility] ([facility]) [address] [place] [address] Erythrocyte distribution width (RBC) [Ratio] 13.9 % Normal 11.5-15.0 [facility] Comment on above: Performed By: #### L [id number] #### [facility] ([facility]) [address] [place] [address] ERYTHROCYTE MEAN CORPUSCULAR HEMOGLOBIN CONCENTRATION (G/DL) BY AUTOMATED 33.2 g/dL Normal 32.0-35.0 [facility] Comment on above: Performed By: #### L [id number] #### [facility] ([facility]) [address] [place] [address] Hematocrit (Bld) [Volume fraction] 46.4 % Normal 39.0-50.0 [facility] Comment on above: Performed By: #### L [id number] #### [facility] [address] [place] [address] Hemoglobin (Bld) [Mass/Vol] 15.4 g/dL Normal 13.0-17.0 [facility] Comment on above: Performed By: #### L [id number] #### [facility] ([facility]) [address] [place] [address] Immature granulocytes (Bld) [#/Vol] 0.06 10*3/uL Normal 0.00-0.20 [facility] Comment on above: Performed By: #### L [id number] #### [facility] [address] [place] [address] Immature granulocytes/100 WBC (Bld) 0.4 % Normal 0.0-1.0 [facility] Comment on above: Performed By: #### L [id number] #### [facility] ([facility]) [address] [place] [address] Lymphocytes (Bld) [#/Vol] 2.29 10*3/uL Normal 1.20-4.00 [facility] Comment on above: Performed By: #### L [id number] #### [facility] [address] [place] [address] Lymphocytes/100 WBC (Bld) 17.0 % Low 20.0-45.0 [facility] Comment on above: Performed By: #### L [id number] #### [facility] [address] [place] [address] MCH (RBC) [Entitic mass] 29.6 pg Normal 27.0-33.0 [facility] Comment on above: Performed By: #### L [id number] #### [facility] ([facility]) [address] [place] [address] MCV (RBC) [Entitic vol] 89.2 fL Normal 82.0-98.0 [facility] Comment on above: Performed By: #### L [id number] #### [facility] ([facility]) [address] [place] [address] Monocytes (Bld) [#/Vol] 1.23 10*3/uL High 0.10-1.00 [facility] Comment on above: Performed By: #### L [id number] #### [facility] ([facility]) [address] [place] [address] Monocytes/100 WBC (Bld) 9.1 % Normal 5.0-12.0 [facility] Comment on above: Performed By: #### L [id number] #### [facility] ([facility]) [address] [place] [address] Neutrophils (Bld) [#/Vol] 9.60 10*3/uL High 1.60-7.60 [facility] Comment on above: Performed By: #### L [id number] #### [facility] ([facility]) [address] [place] [address] Neutrophils/100 WBC (Bld) 71.3 % Normal 40.0-72.0 [facility] Comment on above: Performed By: #### L [id number] #### [facility] ([facility]) [address] [place] [address] NRBC (PER 100 WBCS) BY AUTOMATED COUNT 0.0 % Normal 0 [facility] Comment on above: Performed By: #### L [id number] #### [facility] ([facility]) [address] [place] [address] PLATELETS (10*3/UL) IN BLOOD AUTOMATED COUNT 421 10*3/uL High 150-400 [facility] Comment on above: Performed By: #### L [id number] #### [facility] ([facility]) [address] [place] [address] RBC (Bld) [#/Vol] 5.20 10*6/uL Normal 4.20-5.70 [facility] Comment on above: Performed By: #### L [id number] #### [facility] ([facility]) [address] [place] [address] WBC (Bld) [#/Vol] 13.48 10*3/uL High 4.00-10.60 [facility] Comment on above: Performed By: #### L [id number] #### [facility] ([facility]) [address] [place] [address] CEAon 10-30-2024 CARCINOEMBRYONIC AG (NG/ML) IN SER/PLAS 2.9 ng/mL Normal 0-3 [facility] Comment on above: Order Comment: The m ethod used for this test is Concetta Marisela DxI chemiluminescent immunoassay. Values obtained by different manufacturers or assay methods should not be compared. Performed By: #### L [id number] #### [facility] [address] [place] [address] MAGNESIUMon 10-30-2024 Magnesium [Mass/Vol] 1.8 mg/dL Low 1.9-2.7 [facility] Comment on above: Performed By: #### L [id number] #### [facility] [address] [place] [address] 30on 10-29-2024 30 The patient is Moderately Stable - Low risk of patient condition declining or worsening The patient's goals for the shift include The clinical goals for the shift include Comfort, Rest Over the shift, the patient did not make progress toward the following goals. Barriers to progression include . Recommendations to address these barriers include . Normal [facility] BASIC METABOLIC PANELon 10-10 Anion gap [Moles/Vol] 10 mmol/L Normal 7-20 [facility] Comment on above: Performed By: #### L [id number] #### [facility] ([facility]) [address] [place] [address] Calcium [Mass/Vol] 7.7 mg/dL Low 8.6-10.3 [facility] Comment on above: Performed By: #### L [id number] #### [facility] [address] [place] [address] Chloride [Moles/Vol] 106 mmol/L Normal 98-107 [facility] Comment on above: Performed By: #### L [id number] #### [facility] [address] [place] [address] CO2 [Moles/Vol] 25 mmol/L Normal 21-31 [facility] Comment on above: Performed By: #### L [id number] #### [facility] ([facility]) [address] [place] [address] Creatinine [Mass/Vol] 0.77 mg/dL Normal 0.70-1.30 [facility] Comment on above: Performed By: #### L [id number] #### [facility] ([facility]) [address] [place] [address] GLOMERULAR FILTRATION RATE ML/MIN/1.73 SQ M.PREDICTED 109.7 mL/min/1.73m*2 Normal >60.0 [facility] Comment on above: Result Comment: [facility]???s estimated glomerular filtration rate (eGFR) will no longer include consideration of race in its calculation. The National Kidney Foundation???s eGFR Task Force developed new recommendations for the estimation of the glomerular filtration rate in the [place] They recommend immediate implementation of the new equation refit without the race variable in all laboratories because the calculation does not include race. In addition to not including race in the calculation and reporting, it included diversity in its development, and has acceptable performance characteristics and potential consequences that do not disproportionately affect any one group of individuals. Performed By: #### L [id number] #### [facility] ([facility]) [address] [place] [address] Glucose [Mass/Vol] 87 mg/dL Normal 70-100 [facility] Comment on above: Performed By: #### L [id number] #### [facility] ([facility]) [address] [place] [address] Potassium [Moles/Vol] 3.9 mmol/L Normal 3.5-5.1 [facility] Comment on above: Performed By: #### L [id number] #### [facility] ([facility]) [address] [place] [address] Sodium [Moles/Vol] 137 mmol/L Normal 136-145 [facility] Comment on above: Performed By: #### L [id number] #### [facility] [address] [place] [address] Urea nitrogen [Mass/Vol] 6 mg/dL Low 7-25 [facility] Comment on above: Performed By: #### L [id number] #### [facility] ([facility]) [address] [place] [address] UREA NITROGEN/CREATININE (MASS RATIO) IN SER/PLAS 7.8 Normal [facility] Comment on above: Performed By: #### L [id number] #### [facility] [address] [place] [address] CBC WITH AUTO DIFFERENTIALon 10-29-2024 Basophils (Bld) [#/Vol] 0.08 10*3/uL Normal 0.00-0.20 [facility] Comment on above: Performed By: #### L [id number] #### [facility] ([facility]) [address] [place] [address] Basophils/100 WBC (Bld) 0.6 % Normal 0.0-1.0 [facility] Comment on above: Performed By: #### L [id number] #### [facility] ([facility]) [address] [place] [place] [address] Eosinophils (Bld) [#/Vol] 0.38 10*3/uL Normal 0.00-0.50 [facility] Comment on above: Performed By: #### L [id number] #### [facility] ([facility]) [address] [place] [address] Eosinophils/100 WBC (Bld) 2.7 % Normal 0.0-6.0 [facility] Comment on above: Performed By: #### L [id number] #### [facility] ([facility]) [address] [place] [address] Erythrocyte distribution width (RBC) [Ratio] 13.9 % Normal 11.5-15.0 [facility] Comment on above: Performed By: #### L [id number] #### [facility] ([facility]) [address] [place] [address] ERYTHROCYTE MEAN CORPUSCULAR HEMOGLOBIN CONCENTRATION (G/DL) BY AUTOMATED 32.6 g/dL Normal 32.0-35.0 [facility] Comment on above: Performed By: #### L [id number] #### [facility] ([facility]) [address] [place] [address] Hematocrit (Bld) [Volume fraction] 43.9 % Normal 39.0-50.0 [facility] Comment on above: Performed By: #### L [id number] #### [facility] ([facility]) [address] [place] [place] [address] Hemoglobin (Bld) [Mass/Vol] 14.3 g/dL Normal 13.0-17.0 [facility] Comment on above: Performed By: #### L [id number] #### [facility] ([facility]) [address] [place] [place] [address] Immature granulocytes (Bld) [#/Vol] 0.06 10*3/uL Normal 0.00-0.20 [facility] Comment on above: Performed By: #### L [id number] #### [facility] ([facility]) [address] [place] [address] Immature granulocytes/100 WBC (Bld) 0.4 % Normal 0.0-1.0 [facility] Comment on above: Performed By: #### L [id number] #### [facility] [address] [place] [address] Lymphocytes (Bld) [#/Vol] 1.86 10*3/uL Normal 1.20-4.00 [facility] Comment on above: Performed By: #### L [id number] #### [facility] [address] [place] [place] [address] Lymphocytes/100 WBC (Bld) 13.4 % Low 20.0-45.0 [facility] Comment on above: Performed By: #### L [id number] #### [facility] [address] [place] [address] MCH (RBC) [Entitic mass] 29.8 pg Normal 27.0-33.0 [facility] Comment on above: Performed By: #### L [id number] #### [facility]) [address] [place] [address] MCV (RBC) [Entitic vol] 91.5 fL Normal 82.0-98.0 [facility] Comment on above: Performed By: #### L [id number] #### [facility] ([facility]) [address] [place] [address] Monocytes (Bld) [#/Vol] 1.10 10*3/uL High 0.10-1.00 [facility] Comment on above: Performed By: #### L [id number] #### [facility] ([facility]) [address] [place] [address] Monocytes/100 WBC (Bld) 7.9 % Normal 5.0-12.0 [facility] Comment on above: Performed By: #### L [id number] #### [facility] ([facility]) [address] [place] [address] Neutrophils (Bld) [#/Vol] 10.37 10*3/uL High 1.60-7.60 [facility] Comment on above: Performed By: #### L [id number] #### [facility] ([facility]) [address] [place] [address] Neutrophils/100 WBC (Bld) 75.0 % High 40.0-72.0 [facility] Comment on above: Performed By: #### L [id number] #### [facility] ([facility]) [address] [place] [address] NRBC (PER 100 WBCS) BY AUTOMATED COUNT 0.0 % Normal 0 [facility] Comment on above: Performed By: #### L [id number] #### [facility] ([facility]) [address] [place] [address] PLATELETS (10*3/UL) IN BLOOD AUTOMATED COUNT 347 10*3/uL Normal 150-400 [facility] Comment on above: Performed By: #### L [id number] #### [facility] ([facility]) [address] [place] [address] RBC (Bld) [#/Vol] 4.80 10*6/uL Normal 4.20-5.70 [facility] Comment on above: Performed By: #### L [id number] #### [facility]) [address] [place] [address] WBC (Bld) [#/Vol] 13.85 10*3/uL High 4.00-10.60 [facility] Comment on above: Performed By: #### L [id number] #### [facility] ([facility]) [address] [place] [address] HPon 10-29-2024 HP -- Attestation signed by Efraín Calderon MD at 10/29/2024 5:39 PM Patient seen and evaluated and I agree with the assessment and plan. [facility] General Surgery HISTORY & PHYSICAL Reason for Admission: perforated bowel History of Present Illness: Camryn Brown is a 49 y.o. male who presented on 10/28/2024 as a transfer from [facility] for lower abdominal pain and concern for bowel perforation. Patient reports initial onset of abdominal pain about 2 weeks ago. At that time, he presented to ED and was told he had colitis. He was given antibiotics and discharged. He finished his 10-day course of antibiotics, then developed sudden abdominal pain early last morning. Pain is located across the lower abdomen and notes it was severe. He reports having loose bowel movement at 11 AM that appeared brown and normal. However he does note having intermittent episodes of bloody stools in the past couple months. He also notes experiencing weight loss of approximately 20 pounds in the past couple weeks. Denies any change in appetite. Denies any fevers, chills, chest pain, shortness of breath. He reports having history of diverticulitis, however denies any similar episodes of current presentation in the past 6 months. Patient denies any history of colonoscopy or abdominal surgery. Patient reports history of asthma and no other medical problems, however he has not seen a PCP in over 20 years. In the ED, patient was afebrile and hemodynamically stable. Labs were notable for WBC 21. Remainder of labs were overall within normal limits including Hgb 15, creatinine 0.76, and lactate 0.6. CT abdomen pelvis from outside hospital was obtained and radiologist reported severe mural thickening of sigmoid colon with mass-like appearance proximal to mural thickening with surrounding inflammation and suspected foci of adjacent extraluminal gas along the anterior margin of the left psoas muscle concerning for perforated mass or colitis. Imaging from outside hospital were uploaded to medical chart. Review of Systems Constitutional: Positive for unexpected weight change. Negative for appetite change, chills and fever. Respiratory: Negative for chest tightness and shortness of breath. Cardiovascular: Negative for chest pain. Gastrointestinal: Positive for abdominal pain, blood in stool and nausea. Negative for constipation, diarrhea and vomiting. Genitourinary: Negative for dysuria, flank pain and urgency. Neurological: Negative for light-headedness and headaches. Psychiatric/Behavioral : Negative for confusion. Medical History[1] Surgical History[2] Allergies[3] Current Medications[4] Social History Socioeconomic History Marital status: Single Spouse name: Not on file Number of children: Not on file Years of education: Not on file Highest education level: Not on file Occupational History Not on file Tobacco Use Smoking status: Not on file Smokeless tobacco: Not on file Substance and Sexual Activity Alcohol use: Not on file Drug use: Not on file Sexual activity: Not on file Other Topics Concern Not on file Social History Narrative Not on file Social Drivers of Health Financial Resource Strain: Not on file Food Insecurity: Not on file Transportation Needs: Not on file Physical Activity: Not on file Stress: Not on file Social Connections: Not on file Intimate Partner Violence: Not on file Housing Stability: Not on file Family History[5] Physical Exam: Vital Signs: Blood pressure (!) 159/97, pulse 73, temperature 37.1 ???C (98.8 ???F), temperature source Oral, resp. rate 22, height 1.753 m (5' 9 ), weight 97.5 kg (215 lb), SpO2 96%. Admission Weight: Weight: 97.5 kg (215 lb) Physical Exam Constitutional: General: He is not in acute distress. HENT: Head: Normocephalic and atraumatic. Eyes: Extraocular Movements: Extraocular movements intact. Conjunctiva/sclera: Conjunctivae normal. Cardiovascular: Rate and Rhythm: Normal rate and regular rhythm. Pulmonary: Effort: Pulmonary effort is normal. No respiratory distress. Abdominal: General: There is no distension. Palpations: Abdomen is soft. Tenderness: There is abdominal tenderness (lower abdomen). There is no guarding or rebound. Musculoskeletal: General: Normal range of motion. Skin: General: Skin is warm and dry. Coloration: Skin is not pale. Neurological: Mental Status: He is alert and oriented to person, place, and time. Labs: Lab Results Component Value Date WBC 21.64 (H) 10/28/2024 HGB 15.0 10/28/2024 HCT 45.1 10/28/2024 MCV 89.5 10/28/2024 PLT 393 10/28/2024 Lab Results Component Value Date CALCIUM 7.8 (L) 10/28/2024 NA 135 (L) 10/28/2024 K 4.0 10/28/2024 CO2 24 10/28/2024 CL 105 (more content not included)... Normal [facility] MAGNESIUMon 10-29-2024 Magnesium [Mass/Vol] 1.8 mg/dL Low 1.9-2.7 [facility] Comment on above: Performed By: #### L [id number] #### [facility] ([facility]) [address] [place] [address] CBC WITH AUTO DIFFERENTIALon 10-28-2024 Basophils (Bld) [#/Vol] 0.10 10*3/uL Normal 0.00-0.20 [facility] Comment on above: Performed By: #### L [id number] #### [facility] ([facility]) [address] [place] [address] Basophils/100 WBC (Bld) 0.5 % Normal 0.0-1.0 [facility] Comment on above: Performed By: #### L [id number] #### [facility] [address] [place] [address] Eosinophils (Bld) [#/Vol] 0.42 10*3/uL Normal 0.00-0.50 [facility] Comment on above: Performed By: #### L [id number] #### [facility] ([facility]) [address] [place] [address] Eosinophils/100 WBC (Bld) 1.9 % Normal 0.0-6.0 [facility] Comment on above: Performed By: #### L [id number] #### [facility] ([facility]) [address] [place] [address] Erythrocyte distribution width (RBC) [Ratio] 14.0 % Normal 11.5-15.0 [facility] Comment on above: Performed By: #### L [id number] #### [facility] ([facility]) [address] [place] [address] ERYTHROCYTE MEAN CORPUSCULAR HEMOGLOBIN CONCENTRATION (G/DL) BY AUTOMATED 33.3 g/dL Normal 32.0-35.0 [facility] Comment on above: Performed By: #### L [id number] #### [facility] ([facility]) [address] [place] [address] Hematocrit (Bld) [Volume fraction] 45.1 % Normal 39.0-50.0 [facility] Comment on above: Performed By: #### L [id number] #### [facility] ([facility]) [address] [place] [address] Hemoglobin (Bld) [Mass/Vol] 15.0 g/dL Normal 13.0-17.0 [facility] Comment on above: Performed By: #### L [id number] #### [facility] [address] [place] [address] Immature granulocytes (Bld) [#/Vol] 0.07 10*3/uL Normal 0.00-0.20 [facility] Comment on above: Performed By: #### L [id number] #### [facility] ([facility]) [address] [place] [address] Immature granulocytes/100 WBC (Bld) 0.3 % Normal 0.0-1.0 [facility] Comment on above: Performed By: #### L [id number] #### [facility] [address] [place] [address] Lymphocytes (Bld) [#/Vol] 1.70 10*3/uL Normal 1.20-4.00 [facility] Comment on above: Performed By: #### L [id number] #### [facility] ([facility]) [address] [place] [address] Lymphocytes/100 WBC (Bld) 7.9 % Low 20.0-45.0 [facility] Comment on above: Performed By: #### L [id number] #### [facility] ([facility]) [address] [place] [address] MCH (RBC) [Entitic mass] 29.8 pg Normal 27.0-33.0 [facility] Comment on above: Performed By: #### L [id number] #### [facility] ([facility]) [address] [place] [address] MCV (RBC) [Entitic vol] 89.5 fL Normal 82.0-98.0 [facility] Comment on above: Performed By: #### L [id number] #### [facility] ([facility]) [address] [place] [address] Monocytes (Bld) [#/Vol] 1.32 10*3/uL High 0.10-1.00 [facility] Comment on above: Performed By: #### L [id number] #### [facility]) [address] [place] [address] Monocytes/100 WBC (Bld) 6.1 % Normal 5.0-12.0 [facility] Comment on above: Performed By: #### L [id number] #### [facility] [address] [place] [address] Neutrophils (Bld) [#/Vol] 18.03 10*3/uL High 1.60-7.60 [facility] Comment on above: Performed By: #### L [id number] #### [facility] ([facility]) [address] [place] [address] Neutrophils/100 WBC (Bld) 83.3 % High 40.0-72.0 [facility] Comment on above: Performed By: #### L [id number] #### [facility] ([facility]) [address] [place] [address] NRBC (PER 100 WBCS) BY AUTOMATED COUNT 0.0 % Normal 0 [facility] Comment on above: Performed By: #### L [id number] #### [facility] ([facility]) [address] [place] [address] PLATELETS (10*3/UL) IN BLOOD AUTOMATED COUNT 393 10*3/uL Normal 150-400 [facility] Comment on above: Performed By: #### L [id number] #### [facility] ([facility]) [address] [place] [address] RBC (Bld) [#/Vol] 5.04 10*6/uL Normal 4.20-5.70 [facility] Comment on above: Performed By: #### L [id number] #### [facility] ([facility]) [address] [place] [address] WBC (Bld) [#/Vol] 21.64 10*3/uL High 4.00-10.60 [facility] Comment on above: Performed By: #### L [id number] #### [facility] [address] [place] [address] COMPREHENSIVE METABOLIC PANE Jose 10-28-2024 Albumin [Mass/Vol] 3.5 g/dL Normal 3.5-5.7 [facility] Comment on above: Performed By: #### L [id number] #### [facility] ([facility]) [address] [place] [address] ALP [Catalytic activity/Vol] 113 U/L High 34-104 [facility] Comment on above: Performed By: #### L [id number] #### [facility] ([facility]) [address] [place] [address] ALT [Catalytic activity/Vol] 16 U/L Normal 7-52 [facility] Comment on above: Performed By: #### L [id number] #### [facility] [address] [place] [address] Anion gap [Moles/Vol] 10 mmol/L Normal 7-20 [facility] Comment on above: Performed By: #### L [id number] #### [facility] [address] [place] [address] AST [Catalytic activity/Vol] 25 U/L Normal 13-39 [facility] Comment on above: Performed By: #### L [id number] #### [facility] ([facility]) [address] [place] [address] Bilirubin [Mass/Vol] 0.9 mg/dL Normal 0.3-1.0 [facility] Comment on above: Performed By: #### L [id number] #### [facility] ([facility]) [address] [place] [address] Calcium [Mass/Vol] 7.8 mg/dL Low 8.6-10.3 [facility] Comment on above: Performed By: #### L [id number] #### [facility] [address] [place] [address] Chloride [Moles/Vol] 105 mmol/L Normal 98-107 [facility] Comment on above: Performed By: #### L [id number] #### [facility] ([facility]) [address] [place] [address] CO2 [Moles/Vol] 24 mmol/L Normal 21-31 [facility] Comment on above: Performed By: #### L [id number] #### [facility] ([facility]) [address] [place] [address] Creatinine [Mass/Vol] 0.76 mg/dL Normal 0.70-1.30 [facility] Comment on above: Performed By: #### L [id number] #### [facility] ([facility]) [address] [place] [address] GLOMERULAR FILTRATION RATE ML/MIN/1.73 SQ M.PREDICTED 110.2 mL/min/1.73m*2 Normal >60.0 [facility] Comment on above: Result Comment: [facility]???s estimated glomerular filtration rate (eGFR) will no longer include consideration of race in its calculation. The National Kidney Foundation???s eGFR Task Force developed new recommendations for the estimation of the glomerular filtration rate in the [place] They recommend immediate implementation of the new equation refit without the race variable in all laboratories because the calculation does not include race. In addition to not including race in the calculation and reporting, it included diversity in its development, and has acceptable performance characteristics and potential consequences that do not disproportionately affect any one group of individuals. Performed By: #### L [id number] #### [facility] ([facility]) [address] [place] [address] Glucose [Mass/Vol] 93 mg/dL Normal 70-100 [facility] Comment on above: Performed By: #### L [id number] #### [facility] ([facility]) [address] [place] [address] Potassium [Moles/Vol] 4.0 mmol/L Normal 3.5-5.1 [facility] Comment on above: Performed By: #### L [id number] #### [facility] ([facility]) [address] [place] [address] Protein [Mass/Vol] 6.9 g/dL Normal 6.0-8.3 [facility] Comment on above: Performed By: #### L [id number] #### [facility] ([facility]) [address] [place] [address] Sodium [Moles/Vol] 135 mmol/L Low 136-145 [facility] Comment on above: Performed By: #### L [id number] #### [facility] ([facility]) [address] [place] [address] Urea nitrogen [Mass/Vol] 6 mg/dL Low 7-25 [facility] Comment on above: Performed By: #### L [id number] #### [facility] ([facility]) [address] [place] [address] UREA NITROGEN/CREATININE (MASS RATIO) IN SER/PLAS 7.9 Normal [facility] Comment on above: Performed By: #### L [id number] #### [facility] ([facility]) [address] [place] [address] EDNURSon 10-28-2024 EDNURS Mode of arrival (squ ad #, walk in, police, etc): [facility] Chief complaint(s): Abdominal Pain Arrival Note (brief scenario, treatment LIVE HANGER, etc): Pt was a transfer from [facility] for a perforated bowel. Pt reports lower bilateral abdominal pain since last Wednesday. Pt reports blood in stool today and vomited last at 10:30 am this morning. Normal [facility] EDPROVon 10-28-2024 EDPROV History of Present Illness Chief Complaint Patient presents with ??? Abdominal Pain Initial evaluation completed by Dr. English at 10:06PM. Camryn Brown is a 49 y/o male presenting to the ED with c/o abdominal pain. Pt was transferred from [facility] for bowel rupture. Pt who had colitis 10 days ago and was given outpatient antibiotics reports he woke up this morning at 3AM with severe abdominal pain. Pt states he had rectal bleeding when he went to the bathroom at 6AM. Pt also complains of wheezing. History provided by: Patient Uri Coma Scale Score: 15 History Medical History[1] Surgical History[2] Family History[3] Social History[4] Review of Systems Review of Systems Physical Exam ED Triage Vitals Temp Pulse Resp BP -- -- -- -- SpO2 Temp src Heart Rate Source Patient Position -- -- -- -- BP Location FiO2 (%) -- -- Physical Exam Procedures ED Course & MDM ED Course as of 10/29/24 0022 Sat Oct 28, [id number] Surgery resident notified [NB] ED Course User Index [NB] Katie English MD Diagnoses as of 10/29/24 0022 Bowel perforation (CMS/HCC) Abdominal pain Medical Decision Making Patient was evaluated independently by me but also the surgery resident. He will be speaking to his attending and admitting the patient. Amount and/or Complexity of Data Reviewed External Data Reviewed: radiology. Details: CT abdomen pelvis from outside hospital showed segment of severe mural thickening involving sigmoid colon with focal, lobulated masslike appearance proximal to medial thickening with surrounding inflammatory changes noted. There is also evidence of adjacent retroperitoneal gas along the psoas muscle worrisome for perforation to the retroperitoneum. Given the appearance of perforated mass/neoplasm and/or perforated colitis may be considered. Labs: ordered. Decision-making details documented in ED Course. Details: Labs Reviewed COMPREHENSIVE METABOLIC PANEL - Abnormal Sodium 135 (*) Potassium 4.0 Chloride 105 CO2 24 Anion Gap 10 BUN 6 (*) Creatinine 0.76 BUN/Creatinine Ratio 7.9 Glucose 93 Calcium 7.8 (*) AST 25 ALT (SGPT) 16 Alkaline Phosphatase 113 (*) Total Protein 6.9 Albumin 3.5 Total Bilirubin 0.9 eGFR 110.2 CBC WITH AUTO DIFFERENTIAL - Abnormal Auto WBC 21.64 (*) RBC 5.04 Hemoglobin 15.0 Hematocrit 45.1 MCV 89.5 MCH 29.8 MCHC 33.3 RDW 14.0 Neutrophils % 83.3 (*) Lymphocytes % 7.9 (*) Monocytes % 6.1 Eosinophils % 1.9 Basophils % 0.5 Neutrophils Absolute 18.03 (*) Lymphocytes Absolute 1.70 Monocytes Absolute 1.32 (*) Eosinophils Absolute 0.42 Basophils Absolute 0.10 Platelets 393 nRBC % 0.0 Immature Granulocytes % 0.3 Immature Granulocytes Absolute 0.07 LIPASE - Normal Lipase 37 LACTIC ACID, PLASMA - Normal Lactate 0.6 CBC AND DIFFERENTIAL Radiology: ordered. Discussion of management or test interpretation with external provider(s): General surgery Risk Decision regarding hospitalization. IBrian, documented on behalf of Dr. English. Chief complaint of abdominal pain. Plan of Care: Orders Placed This Encounter Procedures ??? CBC and differential ??? Comprehensive metabolic panel ??? Lipase ??? Lactic acid, plasma ??? CBC auto differential ??? Diet NPO ??? Inpatient consult to General Surgery ??? Insert peripheral IV Medications sodium chloride 0.9 % infusion (130 mL/hr intravenous New Bag 10/28/242225) ipratropium-albuteroL (Duo-Neb) 0.5-2.5 mg/3 mL nebulizer solution 3 mL (3 mL nebulization Given 10/28/242226) ----- RESULTS ----- Labs: Labs Reviewed COMPREHENSIVE METABOLIC PANEL - Abnormal Result Value Sodium 135 (*) Potassium 4.0 Chloride 105 CO2 24 Anion Gap 10 BUN 6 (*) Creatinine 0.76 BUN/Creatinine Ratio 7.9 Glucose 93 Calcium 7.8 (*) AST 25 ALT (SGPT) 16 Alkaline Phosphatase 113 (*) Total Protein 6.9 Albumin 3.5 Total Bilirubin 0.9 eGFR 110.2 CBC WITH AUTO DIFFERENTIAL - Abnormal Auto WBC 21.64 (*) RBC 5.04 Hemoglobin 15.0 Hematocrit 45.1 MCV 89.5 MCH 29.8 MCHC 33.3 RDW 14.0 Neutrophils % 83.3 (*) Lymphocytes % 7.9 (*) Monocytes % 6.1 Eosinophils % 1.9 Basophils % 0.5 Neutrophils Absolute 18.03 (*) Lymphocytes Absolute 1.70 Monocytes Absolute 1.32 (*) Eosinophils Absolute 0.42 Basophils Absolute 0.10 Platelets 393 nRBC % 0.0 Immature Granulocytes % 0.3 Immature Granulocytes Absolute 0.07 LIPASE - Normal Lipase 37 LACTIC ACID, PLASMA - Normal Lactate 0.6 CBC AND DIFFERENTIAL Narrative: The following orders were created for panel order CBC and differential. Procedure Abnormality Status --------- ------ CBC auto differential[[id number]] Abnormal Final result Please view results for these tests on the individual orders. Radiology: No orders t (more content not included)... Normal [facility] LACTIC ACID, PLASMAon 2024 LACTATE (MMOL/L) IN SER/PLAS 0.6 mmol/L Normal 0.5-2.2 [facility] Comment on above: Performed By: #### L AB95 #### [facility] [address] [place] [address] LIPASEon 10-28-2024 LIPASE (U/L) IN SER/PLAS 37 U/L Normal 11-82 [facility] Comment on above: Performed By: #### L AB99 #### [facility] [address] [place] [address] XR knee RT 4V*on 07-11-2023 XR knee RT 4V* [facility] [place] [address] XRay Report Signed Patient: Camryn Brown MR#: [id number] : 1975 Acct:[id number] Age/Sex: 48 / M ADM Date: 07/11/23 [...] Michael Victoria M.D.07/11/2023 12:56 PM Dictation Location: [place] [address] Transcribed By: [facility] 07/11/23 1256 Dictated By: Michael Victoria II, MD 07/11/23 1248 Signed By: 07/11/23 1256 Normal [facility] Operative Reporton 4 Operative Report [id number] TIFF Normal [facility] CBC AUTO DIFFon 11-19-2021 BASO # 0.1 103/ul Normal 0.0-0.1 [facility] Comment on above: Performed By: #### C BC #### [facility] [address] [place] [address] Dr. Jackelin Cook Basophils/100 WBC (Bld) 0.5 % Normal 0.2-2.0 [facility] Comment on above: Performed By: #### C BC #### [facility] [address] [place] [address] Dr. Jackelin Cook EO # 0.2 103/ul Normal 0.0-0.7 [facility] Comment on above: Performed By: #### C BC #### [facility] [address] [place] [address] Dr. Jackelin Cook Eosinophils/100 WBC (Bld) 1.4 % Normal 0.9-7.0 [facility] Comment on above: Performed By: #### C BC #### [facility] [address] [place] [address] Dr. Jackelin Cook Erythrocyte distribution width (RBC) [Ratio] 13.4 % Normal 11.0-15.0 [facility] Comment on above: Performed By: #### C BC #### [facility] [address] [place] [address] Dr. Jackelin Cook Hematocrit (Bld) [Volume fraction] 46.8 % Normal 42.0-54.0 [facility] Comment on above: Performed By: #### C BC #### [facility] [address] [place] [address] Dr. Jackelin Cook Hemoglobin (Bld) [Mass/Vol] 15.3 g/dL Normal 14.0-18.0 [facility] Comment on above: Performed By: #### C BC #### [facility] [address] [place] [address] Dr. Jackelin Cook IG # 0.06 10e3/ul Critically high 0.00-0.03 [facility] Comment on above: Performed By: #### C BC #### [facility] [address] [place] [address] Dr. Jackelin Cook IG % 0.4 % Normal 0.0-0.5 [facility] Comment on above: Performed By: #### C BC #### [facility] [address] [place] [address] Dr. Jackelin Cook LYMPH # 2.5 103/ul Normal 1.2-3.8 [facility] Comment on above: Performed By: #### C BC #### [facility] [address] [place] [address] Dr. Jackelin Cook Lymphocytes/100 WBC (Bld) 15.8 % Critically low 20.5-60.0 [facility] Comment on above: Performed By: #### C BC #### [facility] [address] [place] [address] Dr. Jackelin Cook MANUAL DIFF REQ NO Normal [facility] Comment on above: Performed By: #### C BC #### [facility] [address] [place] [address] Dr. Jackelin Cook MCH (RBC) [Entitic mass] 30.2 pg Normal 25.9-34.0 [facility] Comment on above: Performed By: #### C BC #### [facility] [address] [place] [address] Dr. Jackelin Cook MCHC (RBC) [Mass/Vol] 32.7 g/dL Normal 29.9-35.2 [facility] Comment on above: Performed By: #### C BC #### [facility] [address] [place] [address] Dr. Jackelin Cook MCV (RBC) [Entitic vol] 92.3 fL Normal 80.0-94.0 [facility] Comment on above: Performed By: #### C BC #### [facility] [address] [place] [address] Dr. Jackelin Cook MONO # 1.0 103/ul Critically high 0.3-0.8 [facility] Comment on above: Performed By: #### C BC #### [facility] [address] [place] [address] Dr. Jackelin Cook Monocytes/100 WBC (Bld) 6.5 % Normal 1.7-12.0 [facility] Comment on above: Performed By: #### C BC #### [facility] [address] [place] [address] Dr. Jackelin Cook NEUT # 11.7 103/ul Critically high 1.4-6.5 [facility] Comment on above: Performed By: #### C BC #### [facility] [address] [place] [address] Dr. Jackelin Cook Neutrophils/100 WBC (Bld) 75.4 % Critically high 43.0-75.0 [facility] Comment on above: Performed By: #### C BC #### [facility] [address] [place] [address] Dr. Jackelin Cook Platelet mean volume (Bld) [Entitic vol] 9.1 fL Critically low 9.5-13.5 [facility] Comment on above: Performed By: #### C BC #### [facility] [address] [place] [address] Dr. Jackelin Cook PLT 342 103/ul Normal 150-450 [facility] Comment on above: Performed By: #### C BC #### [facility] [address] [place], [place] [address] Dr. Jackelin Cook RBC 5.07 106/ul Normal 4.70-6.10 [facility] Comment on above: Performed By: #### C BC #### [facility] [address] [place] [address] Dr. Jackelin Cook WBC 15.5 103/ul Critically high 4.0-11.0 [facility] Comment on above: Performed By: #### C #### [facility] [address] [place] [address] [address] ABD/PELV W CONon [...] adjacent free fluid, which may represent sigmoid diverticulitis/colitis . However, underlying malignancy cannot be excluded. Clinical [...] adjacent free fluid, which may represent sigmoid diverticulitis/colitis . However, underlying malignancy cannot be excluded. Clinical [...] REGINA CANNON Date: 2021-11-19 20:06 Normal [facility] Covid-19 PCR (CVDTB)on 11-08 SARS-CoV-2 (COVID-19) RNA PHUONG+probe Ql (Unsp spec) Not detected Normal NOT DETECTED [facility] Comment on above: Result Comment: When diagnostic [...] for this test is supported by the Manager Part of Health and Human Service's declaration that [...] used). Performed By: #### C VDTBH #### [facility] [address] [place] [address] Dr. Jackelin Cook LACTATE/LACTIC ACIDon 2021 Lactate [Moles/Vol] 0.7 mmol/L Normal 0.4-1.9 [facility] Comment on above: Performed By: #### L ACT #### [facility] [address] [place] [address] Dr. Jackelin Cook LIPASEon 11-19-2021 Lipase [Catalytic activity/Vol] 77.0 U/L Normal 73.0-393.0 [facility] Comment on above: Performed By: #### C MP, LIPA #### [facility] [address] [place] [address] Dr. Jackelin Cook PROF 14(COMP METB)on 022 Albumin [Mass/Vol] 3.3 g/dL Critically low 3.4-5.0 Th [facility] Comment on above: Performed By: #### C MP, LIPA #### [facility] [address] [place] [address] Dr. Jackelin Cook Albumin/Globulin [Mass ratio] 0.8 {ratio} Normal [facility] Comment on above: Performed By: #### C MP, LIPA #### [facility] [address] [place] [address] [address] Jackelin Cook ALP [Catalytic activity/Vol] 134 U/L Critically high 46-116 [facility] Comment on above: Performed By: #### C GISELE, LIPA #### [facility] [address] [place] [address] Dr. Jackelin Cook ALT [Catalytic activity/Vol] 29 U/L Normal 16-63 [facility] Comment on above: Performed By: #### C GISELE, LIPA #### [facility] [address] [place] [address] Dr. Jackelin Cook Anion gap [Moles/Vol] 12.2 mmol/L Normal [facility] Comment on above: Performed By: #### C GISELE, LIPA #### [facility] [address] [place] [address] Dr. Jackelin Cook AST [Catalytic activity/Vol] 14 U/L Critically low 15-37 [facility] Comment on above: Performed By: #### C GISELE, LIPA #### [facility] [address] [place] [address] [address] Jackelin Cook Bilirubin [Mass/Vol] 0.3 mg/dL Normal 0.2-1.0 [facility] Comment on above: Performed By: #### C MP, LIPA #### [facility] [address] [place] [address] [address] Jackelin Cook Calcium [Mass/Vol] 8.8 mg/dL Normal 8.5-10.1 [facility] Comment on above: Performed By: #### C MP, LIPA #### [facility] [address] [place], [place] [address] Dr. Jackelin Cook Chloride [Moles/Vol] 104 mmol/L Normal 98-107 [facility] Comment on above: Performed By: #### C MP, LIPA #### [facility] [address] [place] [address] Dr. Jackelin Cook CO2 [Moles/Vol] 25.9 mmol/L Normal 21.0-32.0 [facility] Comment on above: Performed By: #### C MP, LIPA #### [facility] [address] [place] [address] Dr. Jackelin Cook Creatinine [Mass/Vol] 0.96 mg/dL Normal 0.70-1.30 [facility] Comment on above: Performed By: #### C MP, LIPA #### [facility] [address] [place] [address] Dr. Jackelin Cook EGFR-AF ZIMBABWEAN >60 Normal >=60 [facility] Comment on above: Performed By: #### C MP, LIPA #### [facility] [address] [place] [address] Dr. Jackelin Cook EGFR-NON AF ZIMBABWEAN >60 Normal >=60 [facility] Comment on above: Performed By: #### C MP, LIPA #### [facility] [address] [place] [address] Dr. Jackelin Cook Globulin (S) [Mass/Vol] 4.2 g/dL Normal [facility] Comment on above: Performed By: #### C MP, LIPA #### [facility] [address] [place] [address] Dr. Jackelin Cook Glucose [Mass/Vol] 109 mg/dL Critically high 74-106 [facility] Comment on above: Performed By: #### C MP, LIPA #### [facility] [address] [place] [address] Dr. Jackelin Cook Potassium [Moles/Vol] 4.1 mmol/L Normal 3.5-5.1 [facility] Comment on above: Performed By: #### C MP, LIPA #### [facility] [address] [place] [address] Dr. Jackelin Cook Protein [Mass/Vol] 7.5 g/dL Normal 6.4-8.2 [facility] Comment on above: Performed By: #### C MP, LIPA #### [facility] [address] [place] [address] Dr. Jackelin Cook Sodium [Moles/Vol] 138 mmol/L Normal 136-145 [facility] Comment on above: Performed By: #### C MP, LIPA #### [facility] [address] [place] [address] Dr. Jackelin Cook Urea nitrogen [Mass/Vol] 14.0 mg/dL Normal 7.0-18.0 [facility] Comment on above: Performed By: #### C MP, LIPA #### [facility] [address] [place] [address] Dr. Jackelin Cook Urea nitrogen/Creatinine [Mass ratio] 14.6 mg/mg Normal [facility] Comment on above: Performed By: #### C MP, LIPA #### [facility] [address] [place] [address] Dr. Jackelin Cook PROTIMEon 11-19-2021 INR Coag (PPP) [Relative time] 1.02 {INR} Normal [facility] Comment on above: Performed By: #### P TT, PT #### [facility] [address] [place] [address] Dr. Jackelin Cook INR GUIDELINES SEE BELOW Normal [facility] Comment on above: Result Comment: JÚNIOR RED INR: 2.0 - 3.0 CONDITIONS NOT LISTED BELOW 2.5 - 3.5 FOR PROSTHETIC HEART VALVE REPLACEMENT 2.5 - 3.5 RECURRENT THROMBOSIS Performed By: #### P TT, PT #### [facility] [address] [place] [address] Dr. Jackelin Cook PT Coag (PPP) [Time] 11.0 s Normal 9.0-11.6 [facility] Comment on above: Performed By: #### P TT, PT #### [facility] [address] [place] [address] Dr. Jackelin Cook PTTon 11-19-2021 aPTT Coag (Bld) [Time] 29.6 s Normal 22.3-36.2 [facility] Comment on above: Performed By: #### P TT, PT #### [facility] [address] [place] [address] [address] Jackelin Cook Vital Signs Date Time Vital Sign Value Performing Clinician El hussein 07-11-2023 11:59-0400 Body height 175.26 cm COORDINATOR SK[employer] TRAINING [employer]-BC Janiya Bullimore Work Phone: [facility] 07-11-2023 11:59-0400 Body temperature 98.4 [degF] COORDINATOR SKILL TRAINING PROGRAM-BC Janiya Bullimore Work Phone: [facility] 07-11-2023 11:59-0400 Body weight 109.9 kg COORDINATOR SK[employer] TRAINING [employer]GRAM-BC Janiya Bullimore Work Phone: [facility] 07-11-2023 11:59-0400 Diastolic blood pressure 99 mm[Hg] COORDINATOR SKILL TRAINING PROGRAM-BC Janiya Bullimore Work Phone: [facility] 07-11-2023 11:59-0400 Heart rate 81 /min COORDINATOR SK[employer] TRAINING PROGRAM-BC Janiya Bullimore Work Phone: [facility] 07-11-2023 11:59-0400 Respiratory rate 18 /min COORDINATOR SK[employer] TRAINING PROGRAM-BC Janiya Bullimore Work Phone: [facility] 07-11-2023 11:59-0400 SaO2% (BldA) [Mass fraction] 98 % COORDINATOR SKILL TRAINING PROGRAM-BC Janiya Bullimore Work Phone: [facility] 07-11-2023 11:59-0400 Systolic blood pressure 152 mm[Hg] COORDINATOR SKILL TRAINING PROGRAM-BC Janiya Bullimore Work Phone: [facility] Encounters Encounter Date Encounter Type Care Provider Facility Start: 11-22-2024 End: 11-22-2024 ambulatory RADHA LYONS [facility] Start: 10-28-2024 Emergency department patient visit [facility] Start: 10-28-2024 End: 10-31-2024 Evaluation and management of inpatient ROCÍO VAZQUEZ [facility] Start: 10-28-2024 Emergency department patient visit ROCÍO VAZQUEZ [facility] Start: 12-16-2023 End: 12-16-2023 ambulatory PHYSICIAN NO FAMILY Facility:[facility] Start: 07-11-2023 End: 07-11-2023 Emergency department patient visit COORDINATOR [employer] TRA[employer]-BC Janiya Alanisore Work Phone: [facility] Work Phone: Start: 06-14-2023 ambulatory Kevin ZAMARRIPA Facility:[facility] Start: 06-13-2023 End: 06-14-2023 ambulatory Kevin ZAMARRIPA Facility:CD:[id number] Start: 04-27-2022 End: 04-27-2022 ambulatory NONE LISTED REQUEST Facility:[facility] Start: 11-19-2021 End: 11-19-[address] NONE LISTED REQUEST Facility:[facility] Procedures Date Procedure Procedure Detail Performing Clinician Start: 07-11-2023 X-ray of right knee COORDINATOR SK[employer] TRAINING PROGRAM -BC Janiya Zekeore Work Phone: Plan of Treatment Date Care Activity Detail Author Patient Education Contusion (DC) [facility] Work Phone: Patient referral [facility] Work Phone: Payers Date Payer Category Payer Medicare [id number] 2023 Medicare [id number] 2023 Unknown [id number] 2023 Medicaid [id number] 2011 Unknown [id number] 1975 Unknown [id number] 2.16.84 [id number] 1975 Unknown [id number] 2.16.84 [id number] 1975 Unknown [id number] 2.16.8 [id number] 1975 Unknown [id number] 2.16.8 [id number] 1959 Self-pay Unknown [id number] 2.16.8 [id number] Unknown [id number] 2.16.8 [id number] Unknown [id number] 2.16.8 [id number] Social History Date Type Detail Facility Start: 07-11-2023 Tobacco smoking stat [facility] Smoker (finding) [facility] Start: 1975 Sex Assigned At Male F [facility] Progress note 11-22-2024 Note Date & Type Note Facility 11-22-2024 Note Subjective Patient ID: Camryn Brown is a 49 y.o. male who presents for No chief complaint on file.. HPI Presents for posthospital follow-up reports One-time history in the past of acute diverticulitis managed nonoperatively with antibiotics. Patient was admitted to the hospital on 10/28/2024 with complicated sigmoid colon diverticulitis. His symptoms improved after IV antibiotics and was able to be discharged home on Augmentin. Patient have completed his oral antibiotics reports pain is mild to moderate but still persistent. Reports intermittent nausea, he tried to keep himself from vomiting. 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 Gastrointestinal: Positive for abdominal pain, diarrhea, nausea and vomiting. Objective Visit Vitals BP (!) 155/96 (BP Location: Right arm, Patient Position: Sitting) Pulse 72 Temp 37.1 ???C (98.8 ???F) (Oral) Physical Exam Appears comfortable no distress Heavy tobacco odor Abdomen soft nondistended mild tenderness left lower quadrant, fullness in the left lower quadrant Assessment/Plan Diagnoses and all orders for this visit: Diverticulitis - metroNIDAZOLE (Flagyl) 500 mg tablet; Take 1 tablet (500 mg) by mouth Twice daily at 6am and 6pm for 10 days. - cefuroxime (Ceftin) 500 mg tablet; Take 1 tablet (500 mg) by mouth two times daily for 10 days. - ondansetron (Zofran) 4 mg tablet; Take 1 tablet (4 mg) by mouth every 8 (eight) hours if needed for nausea or vomiting. Recurrent sigmoid colon diverticulitis Persistent symptoms after oral antibiotic therapy. Discussed with patient that nonresolving infection may ultimately need surgery with partial colectomy and possible need of diverting ostomy. Patient feels strongly to avoid ostomy. Recommended nonoperative management with another 10 days of oral antibiotic course, prescribed cefuroxime and Flagyl. Will have patient follow-up with colorectal surgery, unclear if patient can tolerate colonoscopy at this time if his acute infection does not resolve. Patient requested prescription of Zofran for his nausea. Will provide 20 tablets prescription No diagnosis found. No orders of the defined types were placed in this encounter. No results found for this or any previous visit (from the past 36 hours). No follow-ups on file. [facility] Progress note 10-31-2024 Note Date & Type Note Facility 10-31-2024 Note 10/31/24 1351 Admission Assessment Questions Verify insurance with patient Yes Do you understand medical disease or what brought you into the hospital? Yes Who is your current PCP? Patient states he does not have a PCP and does not want us to set him up with one. Can I schedule a follow up appointment for you at the time of discharge? No Does patient qualify for Complex Care Management Enrollment? No Do you understand why you are taking your current medications? Yes Are you taking your medications as prescribed? Yes Did patient provide teach back? No Pharmacy Bedside Delivery Status Interested Does the patient have a community case manager assigned to them through their insurance? No Living Arrangement (Current/Prior to Hospitalization) Private residence Does the patient have history of HHC or SNF? No Assistive Device Not applicable Patient's goal for discharge return home with his father Was patient reminded that goal for discharge is 11am? Yes Does the patient have transportation at discharge? Yes (brother) Type of Residence Private residence Is PT/OT appropriate? No Is PT/OT ordered? No Is SW consult appropriate? No Is SW consult ordered? No Do you understand the benefits of MyChart? Yes Were you able to send link and activate MyChart? No [facility] Progress note 10-31-2024 Note Date & Type Note Facility 10-31-2024 Note Respiratory Progress Note Patient Name: Camryn Brown : 1975 Today's Date: 10/31/2024 No Chest X-ray results found for the past 24 hours The findings from the last RT Protocol Assessment were as follows: Bronchodilator Assessment Grid RR: Less than 20 (Level 1) Dyspnea: No SOB Breath Sounds: Expiratory wheezing or cough Resp History: Diagnosis pulmonary disease Oxygen to keep SpO2 >/= 92%: Room air or baseline O2 Peak Flow: N/A Level: Level 1 Aerosolized bronchodilator medication orders and frequency have been revised according to the Respiratory Care Clinical Practice Guidelines. Patient to remain on home therapy: As at home reconcile order with home meds if pulmonary status is stable. Level 1: Every 4 hours PRN for wheezing via nebulizer. Level 2: TID daily and Q4 PRN for wheezing. Level 3: QID and Q4 PRN as needed for wheezing. Level 4: Every 4 hours and as needed for wheezing. Level 5: Stat nebulizer time one and contact prescriber for frequency change. Note - The frequency level of therapy will not be lower than the frequency of home therapy as listed on the medication reconciliation record unless specifically ordered by the prescriber. Identify care plan and goals of therapy and perform ongoing clinical assessment to determine appropriateness, benefit, and improvement during the course of therapy. Patient will be re-evaluated every 24 hours. Rajni Carpio, C APPLICATION DEVELOPER 10/31/2024 [facility] Progress note 10-31-2024 Note Date & Type Note Facility 10-31-2024 Note [facility] General Surgery DAILY PROGRESS NOTE Subjective No acute events overnight. Patient reports feels improved since initial presentation, denies significant pain has some mild lower discomfot. Denies nausea, vomiting, fevers or chills. Tolerating CLD, endorses having an appetite for regular food. Passing gas and having loose small bowel movements, non-bloody. Objective Vitals Vitals: 10/31/24 0643 BP: 164/88 Pulse: 56 Resp: 18 Temp: 36.6 ???C (97.9 ???F) SpO2: 98% I/O last 3 completed shifts: In: 1077.3 (11.1 mL/kg) [I.V.:576.3 (5.9 mL/kg); IV Piggyback:501] Out: 450 (4.6 mL/kg) [Urine:450 (0.1 mL/kg/hr)] Weight: 97 kg No intake/output data recorded. Physical Exam General Appearance: AAOx3, NAD Neck: trachea midline, no JVD Pulmonary: good respiratory effort on room air, no audible wheezing Cardiac: RRR Abdomen: soft, non-distended, mildly tender lower abdomen, no guarding, no rebound tenderness Extremities: no edema bilateral upper and lower extremities Skin: warm and dry without rash Eyes: no scleral icterus Labs Results from last 7 days Lab Units 10/31/24 0542 10/30/24 0626 10/29/24 0602 10/28/24 2216 WBC AUTO 10*3/uL 11.26* 13.48* 13.85* 21.64* HEMOGLOBIN g/dL 15.2 15.4 14.3 15.0 HEMATOCRIT % 45.1 46.4 43.9 45.1 PLATELETS AUTO 10*3/uL 399 421* 347 393 Results from last 7 days Lab Units 10/31/24 0542 10/30/24 0626 10/29/24 0602 10/28/24 2216 SODIUM mmol/L 138 137 137 135* POTASSIUM mmol/L 3.3* 3.7 3.9 4.0 CO2 mmol/L 24 BUN mg/dL 4* 4* 6* 6* CREATININE mg/dL 0.75 0.75 0.77 0.76 Medications enoxaparin, 40 mg, subcutaneous, Daily piperacillin-tazobactam, 4.5 g, intravenous, q8h Imaging CT transfer of outside films This order has been auto-finalized and does not contain a result. CT transfer of outside films This order has been auto-finalized and does not contain a result. Assessment/Plan Camryn Brown is a 49 y.o.male who presented on 10/28/2024 for lower abdominal pain with sigmoid colon inflammation and perforation secondary to possible colitis or diverticulitis versus sigmoid mass. Patient is currently afebrile, hemodynamically stable and non-peritonitic without signs of obstruction. CT imaging reviewed demonstrates possible focal localized perforation adjacent to sigmoid colon. At this time, will manage conservatively to allow inflammation to decrease. Plan: Advance diet to regular soft as tolerated IV antibiotics: Zosyn Pain and nausea control Serial abdominal exams No acute surgical intervention DVT ppx: Lovenox Alea Gallagher MD General Surgery Resident, PGY-2 10/31/24 By using the attestations below, the signing clinician agrees that I have read and verify that the documentation has been personally reviewed by me and ensure that the documentation accurately reflects the encounter. GC: I personally saw this patient on the day of the encounter, performed the peralta portion(s) of the service and participated in the management and confirm the resident's documentation. Please note there may be an additional personal documentation from me. [facility] Progress note 10-30-2024 Note Date & Type Note Facility 10-30-2024 Note ------ Attestation signed by Haider Haley MD at 10/30/2024 4:17 PM I personally saw and examined the patient on the same date of service as resident Dr. Gallagher . I reviewed and edited the note that was written by the resident. All entries reflect an accurate account of the evaluation and care rendered by me. As the teaching physician, I have personally performed or re-performed the history of present illness, physical exam and medical decision making activities of the encounter and verified the resident's documentation. I made pertinent changes as necessary to ensure accurate documentation. ------ [facility] General Surgery DAILY PROGRESS NOTE Subjective No acute events overnight. Patient reports ongoing lower abdominal pain that is slightly improved since initial presentation. Notes some nausea after receiving antihypertensive last night, otherwise tolerating CLD. Passing gas and having loose small bowel movements, non-bloody. Objective Vitals Vitals: 10/29/24 2350 BP: 156/86 Pulse: Resp: Temp: SpO2: I/O last 3 completed shifts: In: 3317.8 (34.1 mL/kg) [I.V.:3117.8 (32.1 mL/kg); IV Piggyback:200] Out: 400 (4.1 mL/kg) [Urine:400 (0.1 mL/kg/hr)] Weight: 97.2 kg No intake/output data recorded. Physical Exam General Appearance: AAOx3, NAD Neck: trachea midline, no JVD Pulmonary: good respiratory effort on room air, no audible wheezing Cardiac: RRR Abdomen: soft, non-distended, tender lower abdomen, no guarding, no rebound tenderness Extremities: no edema bilateral upper and lower extremities Skin: warm and dry without rash Eyes: no scleral icterus Labs Results from last 7 days Lab Units 10/30/24 0626 10/29/24 0602 10/28/24 2216 WBC AUTO 10*3/uL 13.48* 13.85* 21.64* HEMOGLOBIN g/dL 15.4 14.3 15.0 HEMATOCRIT % 46.4 43.9 45.1 PLATELETS AUTO 10*3/uL 421* 347 393 Results from last 7 days Lab Units 10/29/24 0602 10/28/24 2216 SODIUM mmol/L 137 135* POTASSIUM mmol/L 3.9 4.0 CO2 mmol/L 25 24 BUN mg/dL 6* 6* CREATININE mg/dL 0.77 0.76 Medications piperacillin-tazobactam, 4.5 g, intravenous, q8h Imaging CT transfer of outside films This order has been auto-finalized and does not contain a result. CT transfer of outside films This order has been auto-finalized and does not contain a result. Assessment/Plan Camryn Brown is a 49 y.o.male who presented on 10/28/2024 for lower abdominal pain with sigmoid colon inflammation and perforation secondary to possible colitis or diverticulitis versus sigmoid mass. Patient is currently afebrile, hemodynamically stable and non-peritonitic without signs of obstruction. CT imaging reviewed demonstrates possible focal localized perforation adjacent to sigmoid colon. At this time, will manage conservatively to allow inflammation to decrease. Plan: Continue CLD IV antibiotics: Zosyn Pain and nausea control Serial abdominal exams No acute surgical intervention, will continue to re-evaluate patient DVT ppx: Kelsyx Alea Gallagher MD General Surgery Resident, PGY-2 10/30/24 [facility] Progress note 10-29-2024 Note Date & Type Note Facility 10-29-2024 Note Respiratory Progress Note Patient Name: Camryn Brown : 1975 Today's Date: 10/29/2024 No Chest X-ray results found for the past 24 hours The findings from the last RT Protocol Assessment were as follows: Bronchodilator Assessment Grid RR: Less than 20 (Level 1) Dyspnea: No SOB Breath Sounds: Diminished and/or faint wheezes Resp History: Diagnosis pulmonary disease Oxygen to keep SpO2 >/= 92%: Room air or baseline O2 Peak Flow: N/A Level: Level 1 Patient takes treatments at home as needed. Aerosolized bronchodilator medication orders and frequency have been revised according to the Respiratory Care Clinical Practice Guidelines. Patient to remain on home therapy: As at home reconcile order with home meds if pulmonary status is stable. Level 1: Every 4 hours PRN for wheezing via nebulizer. Level 2: TID daily and Q4 PRN for wheezing. Level 3: QID and Q4 PRN as needed for wheezing. Level 4: Every 4 hours and as needed for wheezing. Level 5: Stat nebulizer time one and contact prescriber for frequency change. Note - The frequency level of therapy will not be lower than the frequency of home therapy as listed on the medication reconciliation record unless specifically ordered by the prescriber. Identify care plan and goals of therapy and perform ongoing clinical assessment to determine appropriateness, benefit, and improvement during the course of therapy. Patient will be re-evaluated every 24 hours. Pete Mock, C APPLICATION DEVELOPER 10/29/2024 [facility] History and physical note 06-16-2023 Note Date & Type Note Facility 06-16-2023 Note [id number] [facility] Clinical Note 04-27-2022 Note Date & Type [...] by: LALITHA CARMONA Date: 2022-04-27 08:24 [facility] Evaluation note Note Date & Type Note Facility Evaluation note No assessment information availa ble [facility] Work Phone: Hospital Discharge instructions Note Date & Type Note Facility Hospital Discharge instructions Additional Instructions Rest ice elevate Apply antibiotic ointment a bandage to the abrasion until healed Wear the Tamir wrap as needed for comfort Take the ketorolac every 6 hours for pain take with food Follow-up with mobile mum especially if not getting better Return to the ER for worsening pain swelling redness warmth fever chills or any other concerns [facility] Work Phone: Summary Purpose Family [...] Records FoundNo Status Records FoundNo Status Records FoundNo Status Records Found INFORMATION SOURCE (unrecogn ized section and content) DATE CREATED AUTHOR 05/02/2022 [facility] DATE CREATED AUTHOR AUTHOR'S ORGANIZ ATION 06/22/2023 [facility] DATE CREATED AUTHOR AUTHOR'S ORGANIZ ATION 12/31/2023 [facility] DATE CREATED AUTHOR AUTHOR'S OJSE STAFFORD 11/24/2024 [facility] Care Teams (unrecognized sec tion and content) Team Status: Active Member Role Status Dates Larissa Ko DO Family Provider Active PHYSICIAN NO FAMILY Primary Care Provider Active Team Status: Inactive Member Role Status Dates Janiya Correa [facility]- Emergency Provider Active Start: July 11, 2023 [...] BE BASED ON THE PRIMARY CLINICAL RECORDS. [employer] provides no warranty or guarantee of the accuracy or completeness of information in this document.
--- NOTE | 2024-11-27 18:11 | ED.GENADUL1 ---
HPI HPI - General Adult General Chief complaint: Abdominal Pain Stated complaint: Abdominal Pain RECTAL BLEEDING Time Seen by Provider: 11/27/24 17:02 Source: patient Mode of arrival: walk-in Limitations: no limitations History of Present Illness HPI narrative: Patient is a 49-year-old male that presents to the emergency department with complaints of persistent blood in his stool and lower abdominal pain. He was previously seen here on 10/16 and 10/28 and on 10/28 was transferred to [facility] for a bowel perforation secondary to diverticulitis. He states that he was admitted at [facility] in [place] from 10/30 and 10/31. He states they treated him with antibiotics and did recommend a colonoscopy but he was too inflamed at the time and the tissue was too thin. He did see a physician assistant to the ceo after discharge who did continue antibiotics. He does have an appointment Wednesday with the surgeon to see if he needs surgery. He did call off work today as he is concerned that he is still having blood in his stool and still has abdominal pain even though both of these he reports has improved. He denies any fever, night sweats, chills, nausea, vomiting, diarrhea. Related Data Home Medications ?Medication ?Instructions ?Recorded ?Confirmed cefuroxime axetil 500 mg tablet mg 11/27/24 metronidazole 500 mg tablet mg 11/27/24 ondansetron HCl 4 mg tablet mg 11/27/24 Allergies Allergy/AdvReac Type Severity Reaction Status Date / Time aspirin Allergy Mild asthma Verified 11/27/24 16:03 Opioid HPI Opioid Management Most Recent Opioid Data: Last Pain Scale 6 Today, 15:59 Review of Systems ROS Status of ROS 10 or more systems reviewed and unremarkable except as noted in history and below PFSH PFSH Social History Little interest or pleasure in doing things: not at all Feeling down, depressed, or hopeless: not at all Exam Narrative Exam Narrative: General: No distress, age-appropriate Skin: Warm, dry, no pallor. No rash. Head: Normocephalic, atraumatic. Neck: Supple, non-tender. Eye: Pupils are equal, round and EOMI. No scleral icterus. Ears, Nose, Mouth, and Throat: No nasal mucosal hypertrophy. Oral mucosa is moist, no posterior oropharynx erythema, uvula is mid-line Cardiovascular: Regular Rate and Rhythm without murmur, gallop or rub. Respiratory: No accessory muscle use or respiratory distress. Lungs are clear to auscultation, no wheezing, rales or rhonchi Musculoskeletal: Full ROM of all extremities, no calf or popliteal tenderness GI: Abdomen is soft, nondistended, mildly tender to palpation RLQ/LLQ. No masses appreciated. No rebound, guarding, or rigidity noted. Neurological: A&O x4. No cranial nerve dysfunction observed. No truncal ataxia. Moves all extremities. Sensation intact. Psychiatric: Cooperative and interactive. Normal mood and affect. Constitutional Vital Signs, click to edit/add: Last Vital Signs Temp 98.2 F 11/27/24 15:59 Pulse 76 11/27/24 18:35 Resp 16 11/27/24 18:35 BP 159/94 H 11/27/24 18:35 Pulse Ox 98 11/27/24 18:35 O2 Del Method Room Air 11/27/24 15:59 Documenting provider has reviewed patient's vital signs: yes Course Vital Signs Vital signs: Vital Signs Temperature 98.2 F 11/27/24 15:59 Pulse Rate 67 11/27/24 15:59 Respiratory Rate 20 11/27/24 15:59 Blood Pressure 167/109 H 11/27/24 15:59 Pulse Oximetry 97 11/27/24 15:59 Oxygen Delivery Method Room Air 11/27/24 15:59 Temperature 98.2 F 11/27/24 15:59 Pulse Rate 76 11/27/24 18:35 Respiratory Rate 16 11/27/24 18:35 Blood Pressure 159/94 H 11/27/24 18:35 Pulse Oximetry 98 11/27/24 18:35 Oxygen Delivery Method Room Air 11/27/24 15:59 Medical Decision Making MDM Narrative Medical decision making narrative: This is a 49-year-old male that returns to the emergency department with complaints of persistent blood in his stool and lower abdominal pain. He was evaluated in this emergency department on 10/16 and 10/28 with complaints of blood in his stool and on 10/28 abdominal pain as well. On 10/28 he was transferred to [facility] after his abdominal scan showed a segment of severe mural thickening involving sigmoid colon with focal, lobulated masslike appearance proximal to the mural thickening. Since prior 10/16 scan, there was evidence of adjacent retroperitoneal gas along the psoas muscle worrisome for perforation to the retroperitoneum. Given the appearance, perforated mass/neoplasm and/or perforated colitis was considered. Patient reports that he was at [facility] from 10/28 to 11/01 and they ultimately decided on nonoperative management with antibiotics. He has followed up outpatient with the PA for general surgery who continued antibiotics and nonoperative management. Patient does have an appointment with the surgeon on Friday 12/01, her surgery may be considered. It sounds like they would like him to see colorectal surgery as well for possible colonoscopy. On arrival patient is in no distress, nontoxic-appearing. Vitals are hemodynamically stable. Patient is afebrile at 98.2 ?F. IV placed. CBC/CMP and CT abdomen/pelvis with contrast ordered. RLQ/LLQ mildly tender, no rebound tenderness. No distention. Nonperitoneal. Labs CBC: Leukocytosis WBC 16.4, has trended down from lab a month ago that was 27 CMP: Largely WNL, alk phos still elevated at 125, has trended down from [address] abdomen/pelvis: Redemonstration of a masslike thickening of the sigmoid colon and mild surrounding fat stranding. Differential considerations include colonic neoplasm versus colitis/diverticulitis. I did call [facility] and paged Dr Haley with General Surgery, as patient is currently following with [facility] general surgery. I was notified via the transfer center that Dr. Haley had informed her he had not previously seen this patient and was not familiar with him, he is not taking consults currently as they are on bypass. They recommended that if patient was stable for discharge that we can fax his records and patient can call the office tomorrow. Patient has been observed in the department for over 5 hours and vitals and abdominal exam have remained stable. I discussed results with patient and recommended continuing his antibiotics cefuroxime and metronidazole. Patient wants to go home and states that he is hungry. I did discuss that he is still having some blood in his stool and he needs to continue follow-up workup with the general surgery and colorectal teams as there is possibly a colonic mass versus diverticulitis/colitis causing the bleeding. I discussed that his hemoglobin is 14.7 and only dropped a little over 1 g from 16.2 in a month. He does confirm that all of his symptoms have improved since his last ER visit a month ago. He is also concerned about a work note for [employer], which I did give him to be off work tonight. Patient was discharged in stable condition with strict return precautions to include increasing abdominal pain or increased blood in his stool or any new or worsening symptoms. He will call the General Surgery office tomorrow for further recommendations on follow up if they want to see him sooner than Wednesday. Differential Diagnosis Differential Diagnosis: Recurrent diverticulitis, colorectal cancer, Lab Data Lab results reviewed: Yes I reviewed the patient's lab results Labs: Lab Results 11/27/24 11/27/24 Range/Units 18:07 18:31 WBC 16.4 H (4.0-11.0) 10^3/uL RBC 4.95 (4.70-6.10) 10^6/uL Hgb 14.7 (14.0-18.0) g/dL Hct 45.0 (42.0-54.0) % MCV 90.9 (80.0-94.0) fL MCH 29.7 (25.9-34.0) pg MCHC 32.7 (29.9-35.2) g/dL RDW 14.0 (11.0-15.0) % Plt Count 370 (150-450) 10^3/uL MPV 9.5 (9.5-13.5) fL Neut % (Auto) 72.0 (43.0-75.0) % Lymph % (Auto) 17.9 L (20.5-60.0) % [place] % (Auto) 6.2 (1.7-12.0) % Eos % (Auto) 2.9 (0.9-7.0) % Baso % (Auto) 0.5 (0.2-2.0) % Neut # (Auto) 11.8 H (1.4-6.5) 10^3/uL Lymph # (Auto) 2.9 (1.2-3.8) 10^3/uL [place] # (Auto) 1.0 H (0.3-0.8) 10^3/uL Eos # (Auto) 0.5 (0.0-0.7) 10^3/uL Baso # (Auto) 0.1 (0.0-0.1) 10^3/uL Abs Immat Gran (auto) 0.08 H (0.00-0.03) 10^3/uL Imm/Tot Granulo (auto) 0.5 (0.0-0.5) % Sodium 140 (136-145) mmol/L Potassium 4.1 (3.5-5.1) mmol/L Chloride 104 (98-107) mmol/L Carbon Dioxide 27.3 (21.0-32.0) mmol/L Anion Gap 12.8 BUN 6.0 L (7.0-18.0) mg/dL Creatinine 0.71 (0.70-1.30) mg/dL Est GFR ( Amer) >60 (>=60 mL/min/1.73m^2) Est GFR (Non-Af Amer) >60 (>=60 mL/min/1.73m^2) BUN/Creatinine Ratio 8.5 Glucose 90 (74-106) mg/dL Lactate 1.2 (0.4-2.0) mmol/L Calcium 8.5 (8.5-10.1) mg/dL Total Bilirubin 0.4 (0.2-1.0) mg/dL AST 28 (15-37) U/L ALT 36 (16-63) U/L Alkaline Phosphatase 125 H (46-116) U/L Total Protein 7.6 (6.4-8.2) g/dL Albumin 3.0 L (3.4-5.0) g/dL Globulin 4.6 g/dL Albumin/Globulin Ratio 0.[address] scan - abdomen: Attestation: I have reviewed the pertinent imaging results. Radiologist's impression: ITS Impressions Abdomen/Pelvis CT 11/27/24 18:24 IMPRESSION: Redemonstration of a masslike thickening of the sigmoid colon and mild surrounding fat stranding. Differential considerations include colonic neoplasm versus colitis/diverticulitis Mildly distended gallbladder, if there are right upper quadrant symptoms,, consider ultrasound. Impression dictated by: Roderick Dawn M.D. 11/27/2024 7:17 PM Dictation Location: [place] [address] Electronically authenticated by: [id number] Y Date: 11/27/2024 19:17 Discharge Plan Discharge Chief Complaint: Abdominal Pain Clinical Impression: Diverticulitis Patient Disposition: Home, Self-Care Time of Disposition Decision: 20:36 Condition: Good Mode of Transportation: Private Vehicle Prescriptions / Home Meds: No Action ondansetron HCl 4 mg tablet metronidazole 500 mg tablet cefuroxime axetil 500 mg tablet Print Language: Citizen Of [place] Instructions: Diverticulitis (ED) Referrals: General Surgery [Other] - As soon as possible Referral Note: Call tomorrow and notify them you were in the Emergency Department to see if they need to move up your appointment. Physician,Non-Staff, MD [Primary Care Provider] - 1 week Discharge Date/Time: 11/27/24 21:00
--- NOTE | 2024-11-27 18:24 | CT_ITS ---
The [address] [address] Patient Name: CAMRYN GOOD MRN: [id number] date: 1975 Sex: M Assigned Patient Location: ER Current Patient Location: .MAIN Accession/Order Number: [id number] Exam Date: 11/27/2024 18:20 Report Date: 11/27/2024 19:17 At the request of: YAMILETH LIZARRAGA Procedure: CT abdomen pelvis w con CT ABDOMEN AND PELVIS WITH INTRAVENOUS CONTRAST: CLINICAL HISTORY: lower abdominal pain, rectal bleeding COMPARISON: 10/28/2024 TECHNIQUE: Spiral images were obtained through the abdomen and pelvis following the administration of intravenous contrast. This CT exam was performed using one or more following dose reduction techniques: Automated exposure control, adjustment of the mA and/or kV according to patient size, or use of iterative reconstruction technique. FINDINGS: Lung Bases: [Hypoventilatory changes.] Organs:Mildly distended gallbladder 5.3 cm. Calcific densities near the gallbladder neck. Otherwise the liver, spleen, adrenals, kidneys, and pancreas are unremarkable.[ GI: Similar appearance of the masslike colonic wall thickening involving sigmoid colon. Minimal stranding fat stranding noted.. There are adjacent lymph nodes identified which can be reactive or due to the related to localized metastases 9 mm recommended. A few prominent loops of small bowel noted no definite small bowel obstruction.[Appendix normal. Pelvis:[Bladder unremarkable. Prostate 5 cm transverse dimension. Small fat-containing inguinal hernias] Peritoneum/Retroperitoneum:Periaortic lymph nodes noted[. No free air or free fluid. 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 Differential considerations include colonic neoplasm versus colitis/diverticulitis Mildly distended gallbladder, if there are right upper quadrant symptoms,, consider ultrasound. Impression dictated by: Roderick Dawn M.D. 11/27/2024 7:17 PM Dictation Location: [place] [address] Electronically authenticated by: [id number] Y Date: 11/27/2024 19:17
[2024-11-27 18:35] VITALS: BP 159/94; PULSE 76; O2SAT 98
[2024-11-27 18:36] LABS: Hematocrit 45.0 % (42.0-54.0); Hemoglobin 14.7 g/dL (14.0-18.0); Immature Granulocytes Abs Auto 0.08 10^3/uL (0.00-0.03); Immature Granulocytes Pct Auto 0.5 % (0.0-0.5); Lymphocytes Absolute Auto 2.9 10^3/uL (1.2-3.8); Mean Corpuscular HGB Conc 32.7 g/dL (29.9-35.2); Mean Corpuscular Hemoglobin 29.7 pg (25.9-34.0); Mean Corpuscular Volume 90.9 fL (80.0-94.0); Platelet Count 370 10^3/uL (150-450); Red Blood Count 4.95 10^6/uL (4.70-6.10); White Blood Count 16.4 10^3/uL (4.0-11.0)
[2024-11-27 18:41] LABS: Lactate/Lactic Acid 1.2 mmol/L (0.4-2.0)
[2024-11-27 18:44] LABS: Alanine Aminotransferase 36 U/L (16-63); Albumin Globulin Ratio 0.7; Albumin Level 3.0 g/dL (3.4-5.0); Alkaline Phosphatase 125 U/L (46-116); Anion Gap 12.8; Aspartate Amino Transferase 28 U/L (15-37); Blood Urea Nitrogen 6.0 mg/dL (7.0-18.0); Calcium 8.5 mg/dL (8.5-10.1); Carbon Dioxide 27.3 mmol/L (21.0-32.0); Chloride 104 mmol/L (98-107); Estimated GFR (African America >60 (>=60 mL/min/1.73m^2); Estimated GFR (Non-African Ame >60 (>=60 mL/min/1.73m^2); Globulin 4.6 g/dL; Glucose 90 mg/dL (74-106); Potassium 4.1 mmol/L (3.5-5.1); Sodium 140 mmol/L (136-145); Total Protein 7.6 g/dL (6.4-8.2)
== END 2024-11-27 21:00 | disposition home or self-care (01) ==
PROVIDERS: Emergency Medicine; Emergency Provider Emergency Medicine
DX: K57.32 Diverticulitis of large intestine without perforation or abscess without bleeding (principal)
CPT/HCPCS: 36415; 74177; 80053; 83605; 85025; 99285; Q9967